=== PATIENT | female | born 2005 | race Caucasian/White ===

== ENCOUNTER 2024-07-18 20:16 | Emergency (ER) | payer OTHER, SELFPAY ==
--- OUTSIDE RECORDS SUMMARY | 2024-06-04 16:00 | XMS_ITS | Encounter Summary ---
Author Organization [facility] Address [address] [place] [address] Care Team Providers Care Health Nurse Name Role Phone Charlie Rowley P.A.-C. Primary Care Provider Reason for Visit * Reason Comments Nurse Visit Bladder instillation * Outpatient (Routine) - Authorized Specialty Diagnoses / Procedures Referred By Sandy chamberlain Referred To Contact Obstetrics and Gynecology Diagnoses Cystitis Interstitial Millie Salinas APRN, C.N.P. [address] [phone] Phone: tel: fax: [facility] Region Referral ID Status Reason Start Date Expiration Date V isits Requested Visits Authorized [id number] Authorized 05/11/2024 11/10/2025 12 12 Encounter Details Date Type Department Care Team (Late st Contact Info) Description 06/04/2024 4:00 PM CDT Nurse Only Department of Obstetrics and Gynecology in [place], [place] [address] [place] [phone] Millie Salinas APRN, C.N.P. [address] [place] [phone] Caren Tena L.P.N. [address] [place] [phone] Nurse Visit (Bladder instillation ) Discharge Disposition: Home or Self Care Social History Tobacco Use Types Packs/Day Years Used Date Smoking Tobacco: Every Day E-cigarettes Passive Smoke Exposure: Current Smokeless Tobacco: Never Alcohol Use Standard Drinks/Week Comments Not Currently 0 (1 standard drink = 0.6 oz pur e alcohol) [facility] Utilities Answer Date Recorded In the past 12 months has th e electric, gas, oil, or water company threatened to shut off services in your home? No 07/28/2023 Overall Financial Resource Strain (CARDIA) Answe r Date Recorded How hard is it for you to pa y for the very basics like food, housing, medical care, and heating? Not hard at all 04/16/2022 PHQ-2 Answer Date Recorded PHQ-2 Score 0 04/24/2024 [facility] of Occupat ional Health - Occupational Stress Questionnaire Answer Date Recorded Do you feel stress - tense, restless, nervous, or anxious, or unable to sleep at night because your mind is troubled all the time - these days? Very much 04/16/2022 Exercise Vital Sign Answer Date Recorde d On average, how many days pe r week do you engage in moderate to strenuous exercise (like a brisk walk)? 0 days 07/28/2023 On average, how many minutes do you engage in exercise at this level? 0 min 07/28/2023 Hunger Vital Sign Answer Date Recorded Within the past 12 months, y ou worried that your food would run out before you got the money to buy more. Never true 07/28/19 24 Within the past 12 months, t he food you bought just didn't last and you didn't have money to get more. Never true 07/28/2023 PRAPARE - Transportation Answer Date Re corded In the past 12 months, has l ack of transportation kept you from medical appointments or from getting medications? No 07/12 In the past 12 months, has l ack of transportation kept you from meetings, work, or from getting things needed for daily living? No 07/28/2023 Depression Answer Date Recor ded PHQ-9 Total Score (max 27) 14 03/18 Safety and Environment Answer Date Noel rded Are there any guns kept in or around your home? Yes 04/16/2022 Gun Storage Not on file 04/16/2022 Child Education Answer Date Recorded Nursing Home Assistant Administrator Education Not on file 2022 Are you/your child doing well enough in school? Yes 04/16/2022 Do you/your child have what you need to learn? Y es 04/16/2022 Read to Child Not on file 04/16/2022 Adolescent Education Answer Date Record ed Are you/your child doing well enough in school? Yes 04/16/2022 Do you/your child have what you need to learn? Y es 04/16/2022 Adolescent Substance Use Answer Date Re corded In the past 30 days, have yo u used substances like alcohol or marijuana? No 04/16/2022 In the past 30 days, have yo u used anything to get high (like other drugs not prescribed to you, over the counter medications, illegal drugs like cocaine, heroin, meth)? No 04/16/2022 Nutrition Answer Date Recorded On average, how many serving s of fruits and vegetables do you eat per day (serving size is equal to 1 cup or approximately the size of a tennis ball)? 0-2 07/28/2023 Dental Answer Date Recorded Dental: Regular Dentist Yes 04/21/19 Employment Answer Date Recorded Employment status Employed and actively working without restrictions 07/28/2023 Housing Stability Answer Date Recorded What is your living situation today? I have a [facility] place to live 07/28/2023 Comments No Sex and Gender Information Value Date Recorded Sex Assigned at Female 04/01/2019 2:47 PM DEPUTY BUILDING GUARD Legal Sex Female 7:51 AM DEPUTY BUILDING GUARD Gender Identity Female 04/01/2019 2:47 PM DEPUTY BUILDING GUARD Sexual Orientation Straight 11/30/2020 1: 11 PM CDT Occupation Industry Job Start Date Job End Date Student Not on file Not on file Not on file documented as of this encounter Progress Notes * Caren Tena, L.P.N. - 06/04/2024 4:00 PM CDT Bladder Instillation This is number 7 of NA. Prior to the procedure the following was reviewed: NA The patient was prepped in sterile fashion using betadine. Catheter size: 8 FR Catheter type: Straight Medication administered (see MAR for specific details): Heparin/Lidocaine/Sodium bicarbonate (Bladder cocktail) Medication instilled via syringe. Catheter removed intact. Patient tolerated procedure well. The patient was provided with the following:Post procedure instructions Next treatment/follow up scheduled for: ONE WEEK 10 cc post cath residual Caren Tena L.P.N. documented in this encounter Plan of Treatment Upcoming Encounters Date Type Department Care Team (Late st Contact Info) Description 07/27/2024 1:30 PM CDT Silent Schedule Department of Obstetrics and Gynecology in [place], [place] [address] [place] [phone] Alberto De La Rosa Jr., M.D. [address] [phone] 07/27/2024 2:40 PM CDT Routine Department of Family Medicine, [facility], in [place], [place] [address] [phone] Tierney Benson M.D. [address] [place] [phone] 08/19/2024 11:00 AM CDT Office Visit Department of Obstetrics and Gynecology in [place], [place] [address] [phone] Millie Salinas, DEDE, CJoseN.P. [address] [place] [phone] documented as of this encounter Visit Diagnoses Diagnosis Cystitis Interstitial documented in this encounter Administered Medications Active Administered Medications - up to 3 most recent administrations Medication Order MAR Action Action Date Dose Rate Site BUPivacaine 0.25 % (2.5 mg/mL) injection 30 mL (Marcaine) 30 mL, injection, Weekly, First dose on Sat05/12/24 at 0900, For 12 doses, Mix 30 ml of 0.25% Marcaine with 2 ml of heparin 5000 units/ml. Instill into bladder.Indications:Cystitis Interstitial Given 07/03/2024 2:12 PM CDT 30 mL Other Given 06/18/2024 9:42 AM CDT 30 mL Ot her Given 06/10/2024 3:10 PM CDT 30 mL Ot her heparin (porcine) injection 10,000 Units 10,000 Units, subcutaneous, Weekly, First dose on Sat05/12/24 at 0900, For 12 doses, To be given via female straight cath for bladder instillation.Indications:Cystitis Interstitial Given 07/03/2024 2:11 PM CDT 10,000 Units Other Given 06/18/2024 9:43 AM CDT 10,000 Units Other Given 06/10/2024 3:09 PM CDT 10,000 Units Other documented in this encounter Additional Health Concerns Assessment Noted Time PHQ-9 Depression Total Score: 14 024 1:44 PM DEPUTY BUILDING GUARD documented as of this encounter Care Teams Health Nurse Relationship Specialty Start Date End Date Charlie Rowley P.A.-C. [address] [place] [address] [phone] PCP - General Family Medicine 11/03/20 documented as of this encounter
--- OUTSIDE RECORDS SUMMARY | 2024-06-10 14:30 | XMS_ITS | Encounter Summary ---
Author Organization [facility] Address [address] [place] [address] Care Team Providers Care Gps Navigation Installer Name Role Phone Charlie Rowley P.A.-C. Primary Care Provider Reason for Visit * Reason Comments Nurse Visit Bladder instillation * Outpatient (Routine) - Authorized Specialty Diagnoses / Procedures Referred By Sandy t Referred To Contact Obstetrics and Gynecology Diagnoses Cystitis Interstitial Millie Salinas APRN, C.N.P. [address] [phone] Phone: tel: fax: [facility] Region Referral ID Status Reason Start Date Expiration Date V isits Requested Visits Authorized [id number] Authorized 05/11/2024 11/10/2025 12 12 Encounter Details Date Type Department Care Team (Late st Contact Info) Description 06/10/2024 2:30 PM CDT Nurse Only Department of Obstetrics and Gynecology in [place], [place] [address] [place] [phone] Millie Salinas APRN, C.N.P. [address] [place] [phone] Caren Tena L.P.N. [address] [place] [phone] Nurse Visit (Bladder instillation ) Social History Tobacco Use Types Packs/Day Years Used Date Smoking Tobacco: Every Day E-cigarettes Passive Smoke Exposure: Current Smokeless Tobacco: Never Alcohol Use Standard Drinks/Week Comments Not Currently 0 (1 standard drink = 0.6 oz pur e alcohol) [facility] Utilities Answer Date Recorded In the [...] Answer Date Recorded PHQ-2 Score 0 04/24/2024 [facility] [place] of Occupat ional Health - Occupational Stress [...] file 04/16/2022 Child Education Answer Date Recorded Python Engineer Education Not on file 2022 Are you/your [...] your living situation today? I have a [facility] place to live 07/28/2023 Comments No Sex and Gender Information Value Date Recorded Sex Assigned at Female 04/01/2019 2:47 PM CHIROPRACTIC PRACTICE MANAGER Legal Sex Female 7:51 AM CHIROPRACTIC PRACTICE MANAGER Gender Identity Female 04/01/2019 2:47 PM CHIROPRACTIC PRACTICE MANAGER Sexual Orientation Straight 11/30/2020 1: 11 PM CDT Occupation Industry Job Start Date Job End Date Student Not on file Not on file Not on file documented as of this encounter Progress Notes * Caren Tena L.PSoraya - 06/10/2024 2:30 PM CDT Bladder Instillation This is number 8 of na. Prior to the procedure the following was reviewed: na The patient was prepped in sterile fashion using betadine. Catheter size: 8 fr Catheter type: Straight Medication administered (see MAR for specific details): Heparin/Lidocaine/Sodium bicarbonate (Bladder cocktail) Medication instilled via syringe. Catheter removed intact. Patient tolerated procedure well. The patient was provided with the following:Post procedure instructions Next treatment/follow up scheduled for: one week Post cath residual 20 cc. Caren Tena L.P.N. documented in this encounter Plan of Treatment Upcoming Encounters Date Type Department Care Team (Late st Contact Info) Description 07/27/2024 1:30 PM CDT Silent Schedule Department of Obstetrics and Gynecology in [place], [place] [address] [place] [phone] Alberto De La Rosa Jr., M.D. [address] [phone] 07/27/2024 2:40 PM CDT Routine Department of Family Medicine, [facility], in [place], [place] [address] [phone] Tierney Benson M.D. [address] [phone] 08/19/2024 11:00 AM CDT Office Visit Department of Obstetrics and Gynecology in [place], [place] [address] [phone] Millie Salinas, DEDE CJoseNJoseP. [address] [place] [phone] documented as of this encounter Visit [...] Depression Total Score: 14 024 1:44 PM CHIROPRACTIC PRACTICE MANAGER documented as of this encounter Care Teams Gps Navigation Installer Relationship Specialty Start Date End Date Charlie Rowley P.A.-C. [address] [place] [phone] PCP - General Family Medicine 11/03/20 documented as of this encounter
--- OUTSIDE RECORDS SUMMARY | 2024-06-18 09:00 | XMS_ITS | Encounter Summary ---
Author Organization [facility] Address [address] [place] [address] Care Team Providers Care Large Sheetfed Press Operator Name Role Phone Charlie Rowley P.A.-C. Primary Care Provider Reason for Visit * Reason Comments Nurse Visit BLADDER INSTILLATION * Outpatient (Routine) - Closed Specialty Diagnoses / Procedures Referred By Sandy chamberlain Referred To Contact Obstetrics and Gynecology Diagnoses Obesity Body Mass Index 30-39.9 Adult Cystitis Interstitial Millie Salinas APRN, C.N.P. [address] [place] [address] Phone: tel: fax: [facility] Region Referral ID Status Reason Start Date Expiration Date Visits Re quested Visits Authorized [id number] Closed 05/11/2024 11/10/2025 1 1 Encounter Details Date Type Department Care Team (Late st Contact Info) Description 06/18/2024 9:00 AM CDT Nurse Only Department of Obstetrics and Gynecology in [place], [place] [address], [place] [phone] Millie Salinas APRN, C.N.P. [address], [place] [phone] Caren Tena L.P.N. [address] [phone] Nurse Visit (BLADDER INSTILLATION ) Discharge Disposition: Home or Self Care Social History Tobacco Use Types Packs/Day Years Used Date Smoking Tobacco: Every Day E-cigarettes Passive Smoke Exposure: Current Smokeless Tobacco: Never Alcohol Use Standard Drinks/Week Comments Not Currently 0 (1 standard drink = 0.6 oz pur e alcohol) [facility] Utilities Answer Date Recorded In the [...] Answer Date Recorded PHQ-2 Score 0 04/24/2024 [facility] of Occupat ional Health - Occupational Stress [...] file 04/16/2022 Child Education Answer Date Recorded Surgery Assistant Education Not on file 2022 Are you/your [...] your living situation today? I have a [facility] place to live 07/28/2023 Comments No Sex and Gender Information Value Date Recorded Sex Assigned at Female 04/01/2019 2:47 PM PREASSEMBLER AND INSPECTOR Legal Sex Female 7:51 AM PREASSEMBLER AND INSPECTOR Gender Identity Female 04/01/2019 2:47 PM PREASSEMBLER AND INSPECTOR Sexual Orientation Straight 11/30/2020 1: 11 PM CDT Occupation Industry Job Start Date Job End Date Student Not on file Not on file Not on file documented as of this encounter Progress Notes * Caren Tena L.P.N. - 06/18/2024 9:00 AM CDT Bladder Instillation This is number 9 of NA. Prior to the procedure the following was reviewed: NA The patient was prepped in sterile fashion using BETADINE . Catheter size: 8 FR Catheter type: Straight Medication administered (see MAR for specific details): Heparin/Lidocaine/Sodium bicarbonate (Bladder cocktail) Medication instilled via syringe. Catheter removed intact. Patient tolerated procedure well. The patient was provided with the following:Post procedure instructions Next treatment/follow up scheduled for: ONE WEEK DROPS FOR POST CATH RESIDUAL Caren Tena L.P.N. documented in this encounter Plan of Treatment Upcoming Encounters Date Type Department Care Team (Late st Contact Info) Description 07/27/2024 1:30 PM CDT Silent Schedule Department of Obstetrics and Gynecology in [place], [place] [address] [place] [phone] Alberto De La Rosa Jr., M.D. [address] [place] [phone] 07/27/2024 2:40 PM CDT Routine Department of Family Medicine, [facility], in [place], [place] [address] [place] [phone] Tierney Benson M.D. [address] [place] [phone] 08/19/2024 11:00 AM CDT Office Visit Department of Obstetrics and Gynecology in [place], [place] [address] [phone] Millie Salinas, DEDE, C.N.P. [address] [place] [phone] documented as of this encounter Visit Diagnoses Diagnosis Obesity Body Mass Index 30-39.9 Adult Cystitis Interstitial documented in this encounter Administered [...] Depression Total Score: 14 024 1:44 PM PREASSEMBLER AND INSPECTOR documented as of this encounter Care Teams Large Sheetfed Press Operator Relationship Specialty Start Date End Date Charlie Rowley, Jaiden. [address] [place] [phone] PCP - General Family Medicine 11/03/20 documented as of this encounter
--- OUTSIDE RECORDS SUMMARY | 2024-06-26 14:15 | XMS_ITS | Encounter Summary ---
Author Organization [facility] Address [address] [place] [address] Care Team Providers Care Glass Deposition Tender Name Role Phone Charlie Rowley P.AJose-CJose Primary Care Provider Reason for Visit * Reason Comments Nurse Visit Weight and height * Appointment Request (Routine) - Authorized Specialty Diagnoses / Procedures Referred By Sandy chamberlain Referred To Contact Family Medicine Referral ID Status Reason Start Date Expiration Date V isits Requested Visits Authorized [id number] Authorized 06/24/2024 09/24/2025 1 1 Encounter Details Date Type Department Care Team (Late st Contact Info) Description 06/26/2024 2:15 PM CDT Nurse Only Department of Family Medicine, [facility], in [place], [place] [address] [place] [phone] Charlie Rowley PRadha-CJose [address] [place] [phone] Alyse Batres LJoseP.NJose [address] [place] [phone] Nurse Visit (Weight and height) Social History Tobacco Use Types Packs/Day Years Used Date Smoking Tobacco: Every Day E-cigarettes Passive Smoke Exposure: Current Smokeless Tobacco: Never Alcohol Use Standard Drinks/Week Comments Not Currently 0 (1 standard drink = 0.6 oz pur e alcohol) [facility] Utilities Answer Date Recorded In the past 12 months has e electric, gas, oil, or water company threatened to shut off services in your home? No 07/28/2023 Overall Financial Resource Strain (CARDIA) Answe r Date Recorded How hard is it for you to pa y for the very basics like food, housing, medical care, and heating? Not hard at all 04/16/2022 PHQ-2 Answer Date Recorded PHQ-2 Score 0 04/24/2024 [facility] of Occupat ional Health - Occupational Stress [...] file 04/16/2022 Child Education Answer Date Recorded Final Inspector Motorcyles Education Not on file 2022 Are you/your [...] your living situation today? I have a [facility] place to live 07/28/2023 Comments No Sex and Gender Information Value Date Recorded Sex Assigned at Female 04/01/2019 2:47 PM OPENER Legal Sex Female 7:51 AM OPENER Gender Identity Female 04/01/2019 2:47 PM OPENER Sexual Orientation Straight 11/30/2020 1: 11 PM CDT Occupation Industry Job Start Date Job End Date Student Not on file Not on file Not on file documented as of this encounter Last Filed Vital Signs Vital Sign Reading Time Taken Comments Blood Pressure - - Pulse - - Temperature - - Respiratory Rate - - Oxygen Saturation - - Inhaled Oxygen Concentration - - Weight 89.8 kg (197 lb 15.6 oz) 06/26/2024 2:19 PM CDT Height 162.4 cm (5' 3.94) 06/26/2024 2:19 PM CD T Body Mass Index 34.05 06/26/2024 2:19 PM CDT documented in this encounter Progress Notes * Alyse Batres, L.P.N. - 06/26/2024 2:15 PM CDT Patient stopped into the clinic today for a Weight and height check. Wt. 89.80 kg Ht. 162.4 cm documented in this encounter Plan of Treatment Upcoming Encounters Date Type Department Care Team (Late st Contact Info) Description 07/27/2024 1:30 PM CDT Silent Schedule Department of Obstetrics and Gynecology in [place], [place] [address] [phone] Alberto De La Rosa Jr., M.D. [address] [phone] 07/27/2024 2:40 PM CDT Routine Department of Family Medicine, [facility], in [place], [place] [address] [phone] Tierney Benson M.D. [address] [phone] 08/19/2024 11:00 AM CDT Office Visit Department of Obstetrics and Gynecology in [place], [place] [address] [phone] Millie Salinas, DEDE, C.N.P. [address] [phone] documented as of this encounter Visit Diagnoses Diagnosis Obesity Body Mass Index 30-39.9 Adult- Primary documented in this encounter Additional Health Concerns Assessment Noted Time PHQ-9 Depression Total Score: 14 024 1:44 PM OPENER documented as of this encounter Care Teams Glass Deposition Tender Relationship Specialty Start Date End Date Charlie Rowley P.A.-C. [address] [facility] [place] [phone] PCP - General Family Medicine 11/03/20 documented as of this encounter
--- OUTSIDE RECORDS SUMMARY | 2024-06-29 11:30 | XMS_ITS | Encounter Summary ---
Author Organization [facility] Address [address] [place] [id number] Care Team Providers Care Rail Technician Name Role Phone Charlie Rowley P.A.-C. Primary Care Provider Encounter Details Date Type Department Care Team (Late st Contact Info) Description 06/29/2024 11:30 AM CDT Internal E-Consult Division of Endocrinology in [place], [place] [address] [place] [phone] Luna Wiley, DEDE, C.N.P., M.S.N. [address] [place] [phone] Social History Tobacco Use Types Packs/Day Years Used Date Smoking Tobacco: Every Day E-cigarettes Passive Smoke Exposure: Current Smokeless Tobacco: Never Alcohol Use Standard Drinks/Week Comments Not Currently 0 (1 standard drink = 0.6 oz pur e alcohol) [facility] Utilities Answer Date Recorded In the past 12 months has [employer], gas, oil, or water [employer] threatened to shut off services in your home? No 06/30/2024 Overall Financial Resource Strain (CARDIA) Answe r Date Recorded How hard is it for you to pa y for the very basics like food, housing, medical care, and heating? Not hard at all 04/16/2022 PHQ-2 Answer Date Recorded PHQ-2 Score 2 06/30/2024 [facility] [place] [facility] Occupat ional Health - Occupational Stress [...] the money to buy more. Never true 07/01/19 25 Within the past 12 months, t he food you bought just didn't last and you didn't have money to get more. Never true 06/30/2024 PRAPARE - Transportation Answer Date Re corded In the past 12 months, has l ack of transportation kept you from medical appointments or from getting medications? No 06/12 In the past 12 months, has l ack of transportation kept you from meetings, work, or from getting things needed for daily living? No 06/30/2024 Depression Answer Date Recor ded PHQ-9 Total Score (max 27) 8 06/30 Safety and Environment Answer Date Noel rded Are there any guns kept in or around your home? Yes 04/16/2022 Gun Storage Not on file 04/16/2022 Child Education Answer Date Recorded Litigation Services Manager Education Not on file 2022 Are you/your [...] your living situation today? I have a larry place to live 07/28/2023 Comments No Sex and Gender Information Value Date Recorded Sex Assigned at Female 04/01/2019 2:47 PM BONDING AGENT Legal Sex Female 7:51 AM BONDING AGENT Gender Identity Female 04/01/2019 2:47 PM BONDING AGENT Sexual Orientation Straight 11/30/2020 1: 11 PM CDT Occupation Industry Job Start Date Job End Date Student Not on file Not on file Not on file documented as of this encounter Consult Notes * Luna Wiley APRN, C.N.P., M.S.N. - 06/29/2024 11:30 AM CDT ENDOCRINOLOGY eCONSULT SUBJECTIVE REFERRAL Millie Salinas APRN, C.N.P. REASON FOR REFERRAL Clinical Question, Patient desires 2nd option regarding PCOS management HPI This is an E-consult. The patient was not personally interviewed or examined. The history and examination findings are based on the clinical documentation provided and/or discussed with the provider who had personally interviewed and examined the patient. Carli Barrett is a 19 y.o. female who is referred for the above listed clinical question. Has experienced abdominal pain following IUD placement in 2020, ongoing pelvic pain, dyspareunia, and cystictype acne of the back, axilla, and groin region. Has trialed IUD, oral contraceptives, and NuvaRingin the past. Has trialed metformin in the past as well as GLP-1 which was not tolerated secondary to GI side effects. Secondary to symptoms, investigation was initiated. TVUS in February of 2023 notedno sonographic evidence for pelvic pain. Polycystic morphology not commented upon. Note that right ovarian volume 13 mL, left within normal limits at 6 mL. Lab work is as follows: Latest Reference Range & Units 03/22/22 11:45 03/18/23 14:43 05/29/23 12:50 06/17/23 16:47 07/12/23 11:33 08/02/23 15:30 Dehydroepiandrosterone Sulfate, S 83 - 377 mcg/dL 429 (H) Prolactin Total 4.8 - 23.3 ng/mL 13.7 8.1 Antimullerian Hormone, S 0.62 - 7.8 ng/mL 3.0 Estradiol Rapid, Immunoassay, S pg/mL <5 Estradiol Free, Serum (includes Estradiol and SHBG) - Sent Out Lab Rpt ! Follicle-Stim Hormone (FSH), S IU/L 4.8 Testosterone, Total by Mass Spectrometry, Serum ng/dL 32 Testosterone, Free, S <0.13 - 1.09 ng/dL 0.50 TSH, Sensitive 0.5 - 4.3 mIU/L 0.9 Hemoglobin A1c, B 4.2 - 5.6 % 5.0 (H): Data is abnormally high !: Data is abnormal Rpt: View report in Results Review for more information ASSESSMENT / PLAN #1 PCOS [place] criteria necessitates that other causes of symptoms be ruled out as well as two of the following be present: 1) Oligomenorrhea or anovulation, 2) Clinical and/or biochemical signs of hyperandrogenism, and 3) Polycystic ovaries by ultrasound. AMH elevation can also be of assistance in diagnosing. Ms. Barrett has had hyperprolactinemia ruled out as a potential cause of symptoms. Would recommend 17-Hydroxyprogesterone be obtained and if Viola's is suspected one midnight salivary cortisol can be obtained. Given that there are clinical (acne) and biochemical (elevated DHEAS) present, then PCOS would be ruled in. If ruled in, there would not be any new recommendations that we would have. Continue to work toward healthy BMI as we know that this is the most well recognized method to control physical symptoms, decrease the risk of metabolic syndrome, and regulate menstrual cycles. It appears that phentermine is working well for Miss Barrett. If acne, androgenic hair loss, or hirsutism are present and concerning, spironolactone is the recommended medication. Alternatively, laser or electrolysis may be necessary to relieve hirsutism. Dermatology can assist with acne medications. If estrogen remains unopposed, need to ensure four cycles annually. Oral contraceptives with low androgenic side effects have been shown to regulate menstrual cycles, decrease acne, and assist with hirsutism. Progestin only pills are an acceptable oral alternative if combination medications are not tolerated or not desired. If oral medications are not tolerated or not advised, progestin secreting IUD placement or implant (Nexplanon) can be discussed. If fertility is desired, a trial of natural co nception for six months should occur. If no successful happens, recommend that Reproductive Endocrinology consultation be considered. documented in this encounter Plan of Treatment Upcoming Encounters Date Type Department Care Team (Late st Contact Info) Description 07/27/2024 1:30 PM CDT Silent Schedule Department of Obstetrics and Gynecology in [place], [place] [address] [phone] Alberto De La Rosa Jr., M.D. [address] [phone] 07/27/2024 2:40 PM CDT Routine Department of Family Medicine, [facility], in [place], [place] [address] [phone] Tierney Benson M.D. [address] [phone] 08/19/2024 11:00 AM CDT Office Visit Department of Obstetrics and Gynecology in [place], [place] [address] [phone] Millie Salinas APRN, C.N.P. [address] [phone] documented as of this encounter Visit Diagnoses Not on filedocumented in this encounter Additional Health Concerns Assessment Noted Time PHQ-9 Depression Total Score: 14 024 1:44 PM BONDING AGENT documented as of this encounter Care Teams Rail Technician Relationship Specialty Start Date End Date Charlie Rowley P.A.-C. [address] [place] [address] [place] [phone] PCP - General Family Medicine 11/03/20 documented as of this encounter
--- OUTSIDE RECORDS SUMMARY | 2024-07-01 15:30 | XMS_ITS | Encounter Summary ---
Author Organization [facility] Address [address] [place] [address] Care Team Providers Care Ham Curer Name Role Phone Charlie Rowley P.A.-C. Primary Care Provider Reason for Referral * Outpatient (Routine) - Authorized Specialty Diagnoses / Procedures Referred By Sandy chamberlain Referred To Contact Allergy and Immunology Diagnoses Examination Test With Positive Result (HCC) Tierney Benson M.D. [address], [place] [address] Phone: tel: fax: [facility] Region Referral ID Status Reason Start Date Expiration Date V isits Requested Visits Authorized [id number] Authorized 07/01/2024 12/31/2025 1 1 * Outpatient (Routine) - Authorized Specialty Diagnoses / Procedures Referred By Sandy chamberlain Referred To Contact Family Medicine Diagnoses Examination Test With Positive Result (HCC) Alberto De La Rosa Jr., M.D. [address], [place] [address] Phone: tel: fax: [facility] Region Referral ID Status Reason Start Date Expiration Date V isits Requested Visits Authorized [id number] Authorized 07/01/2024 12/31/2025 1 1 Reason for Visit * Reason Comments Nurse Visit New OB intake and ed ucation * Appointment Request (Routine) - Closed Specialty Diagnoses / Procedures Referred By Contjessica t Referred To Contact Obstetrics and Gynecology Referral ID Status Reason Start Date Expiration Date Visits Re quested Visits Authorized [id number] Closed 06/29/2024 09/29/2025 1 1 Encounter Details Date Type Department Care Team (Late st Contact Info) Description 07/01/2024 3:30 PM CDT Initial Department of Obstetrics and Gynecology in [place], [place] [address] [place] [address] Provider, Nicolas Placeholder Cindi Sellers R.N. [address] [place] [address] GA: 5w1d Social History Tobacco Use Types Packs/Day Years Used Date Smoking Tobacco: Every Day E-cigarettes Passive Smoke Exposure: Current Smokeless Tobacco: Never Alcohol Use Standard Drinks/Week Comments Not Currently 0 (1 standard drink = 0.6 oz pur e alcohol) [facility] Utilities Answer Date Recorded In the past 12 months has [employer], gas, oil, or water [employer] threatened to shut off services in your home? No 06/30/2024 Overall Financial Resource Strain (CARDIA) Answe r Date Recorded How hard is it for you to pa y for the very basics like food, housing, medical care, and heating? Not hard at all 04/16/2022 PHQ-2 Answer Date Recorded PHQ-2 Score 2 06/30/2024 [facility] - Occupational Stress [...] file 04/16/2022 Child Education Answer Date Recorded Machine Stuffer Automatic Education Not on file 2022 Are you/your [...] your living situation today? I have a [facility] [place] place to live 07/28/2023 Estimated Date of Delivery Comme nts Yes 03/02/2025 Based on last me nstrual period of 05/26/2024 (Exact Date) Sex and Gender Information Value Date Recorded Sex Assigned at Female 04/01/2019 2:47 PM CORE SETTER Legal Sex Female 7:51 AM CORE SETTER Gender Identity Female 04/01/2019 2:47 PM CORE SETTER Sexual Orientation Straight 11/30/2020 1: 11 PM CDT Occupation Industry Job Start Date Job End Date Student Not on file Not on file Not on file documented as of this encounter Patient Instructions * Patient Instructions* Cindi Sellers R.N. - 07/01/2024 3:30 PM CDT At the [facility] in [place], we are committed to helping you make your as uncomplicated as possible. We will plan on seeing you every 4 weeks until 28 week gestation. Then every 2 weeks until 36 week gestation. Then every 1 week until 40+ week gestation. Studies have shown that maternal smoking, maternal drug, or alcohol use, excessive weight gain during , maternal obesity at the onset of , and lack of exercise can increase the likelihood of maternal and complications.These may include pre-term labor, placental abruption, growth restriction, trauma, as well as an increased risk that you will need a Section. To help reduce these risks, we recommend the following lifestyle changes: 1. You should abstain from ALL forms of alcoholic beverages for the entire . 2. You should avoid ALL recreational drugs during your . 3. You should not take any new medication or supplement without discussing it with your physician. 4. If you are a smoker, we strongly recommend that you quit immediately. For your baby???s health, it is very important that you do not restart smoking after delivery. Please ask your physician about medication or patch therapy if you are unable to refrain from smoking. 5. We recommend a regular exercise program, 30 minutes at least three times per week during your . This will help you control your weight gain and has been shown to enhance your recovery. Exercise can consist of walking, aerobics, or whatever you are most comfortable. Remember you should not be getting too short of breath, so start slowly. 6. If you have not already started vitamins,please pick some up at any pharmacy. Ensure they have at least 400 mcg of folic acid in them. Delivering providers frequently cover each other on nights, weekends, and holidays. We encourage atleast one meeting with each provider throughout the course of the . If you notice any of the emergent conditions listed below, call Labor and Delivery at [phone]. 1. Less than 10 motions in two hours time sometime during the day each day 2. More than 10 contractions in two hours time continuously (before 36 weeks) 3. Gushes of water or amniotic fluid coming from your vagina 4. Vaginal bleeding more than just a very light spotting flow Important Numbers Triage Nurse line: Saturday thru Saturday, 8 a.m. to 5 p.m.: [phone] After hours or on weekends, call [facility]: [phone] Appointments: [phone] [facility] : [phone] For emergencies, call [phone] Additional Resources/Contact Information For , wellness and healthy lifestyle information, visit [email or web address] Illness / Symptom Call the clinic if Call the clinic immediately if Home Treatment Bleeding/Cramping Some bleeding/spotting may occur after an internal exam Bleeding is less than a period with mild cramping; common in 1st trimester Bleeding is heavy (using a pad every 2 hours) 2nd & 3rd trimester cramping or painless heavy bleeding Cramping is equal to or worse than menstrual cramps Rest Avoid heavy lifting (more than 20 pounds) Vomiting Common in 1st trimester Unable to keep down liquids and solids for more than a 24 hour period Weight loss of more than 3-5 pounds Signs of dehydration occur (e.g. dry mouth, fatigue/lethargy, poor skin turgor) Abdominal pain accompanied with vomiting Vitamin B6 25 mg three times a day Separate liquids from solids (e.g. dry cereal followed by a glass of milk 1 hour later) Plain popcorn Rest Avoid hot sun Decreased (baby) movements after 24 weeks Baby moves less than 4 times in a 30 minute period while you are resting, during a normally active period of baby No movement if accompanied by severe abdominal pain Rest Drink juice or soft drink Eat a small snack Labor Contractions stronger than Crane-Escobar (mild, irregular contractions), but may not be regular If less than 36 weeks, call if contractions are every 15 minutes Contractions are every 5 minutes apart for 1 hour Water breaks; small leak or as a gush Bleeding is more than a period Pain or contractions won't go away Rest (you'll need energy for real labor) Increase fluids to 8-12 glasses daily Dehydration can cause contractions, especially in the summer Urinary Urgency and/or Pain With Urination Frequency is common in early and late Pain with urination Feeling of urgency to void with little urine produced Temperature of 101??F or higher Pain in upper back Contractions occur Blood in urine Urinate at regular intervals Increase fluid intake to 8-12 glasses daily Swelling Recent, noticeable increase in feet and ankles Swelling of face and hands Swelling accompanied with headache or upper abdominal pain Swelling with decreased movement Elevated blood pressure if using home monitoring Lie on left side and elevate legs Avoid salty foods (e.g. ham, pizza, chili) Cold and Flu Temperature of 101??F or higher Green or yellow mucus develops Persistent cough for more than 5 days Breathing is difficult or wheezing occurs Tylenol, Actifed, Sudafed, and any Robitussin Increase fluids Rest Use vaporizer Avoid ibuprofen Rupture of membranes Water breaks; small leak or as a gush documented in this encounter Progress Notes * Cindi Sellers R.N. - 07/01/2024 3:30 PM CDT SUBJECTIVE CHIEF COMPLAINT / REASON FOR VISIT Carli Barrett is a 19 y.o. . Patient's last menstrual period was 05/26/2024 (exact date). Her Estimated Date of Delivery: 03/02/25 determined by LMP. Gestational age is 5w1d. Relationship with FOB: significant other, living together. Patient plans to breastfeed. HISTORY OF PRESENT CONDITION OB History Para Term AB Living 1 0 0 0 0 0 SAB IAB Ectopic Molar Multiple Live Births 0 0 0 0 0 0 # Outcome Date GA Lbr Corey/2nd Weight Sex Type Anes PTL Lv 1 Current Obstetric Comments OB stratification: green Genetic Screen: reviewed Medical History[1] Surgical History[2] Family History[3] Social History[4] Allergies Allergen Reactions Penicillins Hives (Reselect Reaction) Medications the Patient Reported Taking clindamycin (Cleocin T) 1 % external solution (Taking) Lactobacillus no.46/B.animalis (PROBIOTIC-10 ORAL) (Taking) szilnxe-Ke-xaxg-FA 27 mg iron- 1 mg tablet (Taking) ASSESSMENT / PLAN The following were reviewed with patient: Initial new OB labs and vitamins Immunizations Name Date 9vHPV 05/25/2016, 12/12/2016 Influenza 11/02/2008, Deferred (Other), Deferred (Other) Influenza TIV (IM) 12/22/2009, 12/01/2010, 01/11/2012 SARS-COV-2 (COVID-19) - MODERNA(Discontinued) Deferred (Patient decision) SARS-COV-2 (COVID-19) - PFIZER (Discontinued)(12 years or older) 11/25/2020, 12/19/2020 Tdap 05/25/2016 influenza trivalent vaccine (6 months and older)(PF) 03/27/2006, 12/01/2010, 11/15/2012 influenza vaccine quad (FLUZONE/FLUARIX) (6 months and older)(PF) 11/09/2013, 12/24/2014, 02/16/2020 3:52 PM, Deferred (Patient decision) Patient risk stratifies into green PCP:No PCP listed Prefers Family Medicine providers. Requested Dr Tierney Benson Additional visits ordered: NOB OBG RESEARCH TECHNICIAN/CNM/MD appointment Viability/Dating Ultrasound New OB labs ordered per protocol. Patient was introduced to our care models, including in person and virtual care visits. Patient was instructed to bring any questions to their New OB Provider visit. The following were reviewed with patient: Initial new OB labs and vitamins, anticipated course of care, routine labs, optional labs, seat belt use, dental care, exercise, caffeine use, sexual activity, toxoplasmosis precautions(if indicated), avoidance of hot tubs/saunas, WIC, [place] policy, safe over the counter medications (take Tylenol for pain and discomfort, but should not take Ibuprofen, Motrin, Advilor Aspirin containing products while unless otherwise directed by your doctor), common preg zack symptoms, mercury and listeria precautions, and topics of when to notify care team (fever, excessive nausea/vomiting, pain, bleeding, urinary symptoms, headaches) Patient states understanding to all topics presented. All questions answered during appointment. Written information regarding topics presented provided for patient via portal or at next visit. Please see education tab for further details about topics addressed. Cindi Sellers R.N. [1] Past Medical History: Diagnosis Date Abuse Alcohol Acne Alcohol Withdrawal Syndrome (HCC) Anxiety Generalized Disorder Attention Deficit Hyperactive Disorder Depressive Disorder Disturbance Sleep Drug Withdrawal Syndrome (HCC) Endometriosis Headache Unspecified Irritable Bowel Syndrome, Unspecified Loss Visual Methicillin Resistant Staphylococcal Aureus Obesity Body Mass Index 30-39.9 Adult Obsessive Compulsive Disorder Polycystic Ovary Syndrome Self Mutilation Suicide Attempt Personal History Urinary Tract Infection Site Not Specified [2] Past Surgical History: Procedure Laterality Date HIP SURGERY OTHER SURGICAL HISTORY Hip surgery PA TYMPANOSTOMY W GEN ANES Child years TONSILLECTOMY When i was very young [3] Family History Problem Relation Name Age of Onset Thyroid disease Mother breezy Anxiety disorder Mother breezy Asthma Mother breezy Anxiety disorder Father tia No Known Problems Brother No Known Problems Brother Knee replacement Maternal Grandmother No Known Problems Maternal Grandfather No Known Problems Paternal Grandmother Diabetes Paternal Grandfather Asthma Paternal Grandfather [4] Social History Socioeconomic History Marital status: Single Occupational History Occupation: Student Comment: [employer] Tobacco Use Smoking status: Every Day Types: E-cigarettes Passive exposure: Current Smokeless tobacco: Never Vaping Use Vaping status: current every day use Substances: Nicotine Passive vaping exposure: Yes Substance and Sexual Activity Alcohol use: Not Currently Drug use: Never Comment: Sober since Spring 2019 Sexual activity: Yes Partners: Male control/protection: None Comment: Boyfriend since 2019 Social History Narrative FOB- Shane - first child for both Social Drivers of Health Food Insecurity: No Food Insecurity (06/30/2024) Hunger Vital Sign Worried About Running Out of Food in the Last Year: Never true Ran Out of Food in the Last Year: Never true Transportation Needs: No Transportation Needs (06/30/2024) PRAPARE - Transportation Lack of Transportation (Medical): No Lack of Transportation (Non-Medical): No Physical Activity: Inactive (07/28/2023) Exercise Vital Sign Days of Exercise per Week: 0 days Minutes of Exercise per Session: 0 min Housing Stability: Low Risk (07/28/2023) Housing Stability Housing: Living Situation: I have a steady place to live documented in this encounter Plan of Treatment Upcoming Encounters Date Type Department Care Team (Late st Contact Info) Description 07/27/2024 1:30 PM CDT Silent Schedule Department of Obstetrics and Gynecology in [place], [place] [address] [address] Alberto De La Rosa Jr., M.D. [address] [address] 07/27/2024 2:40 PM CDT Routine Department of Family Medicine, [facility], in [place], [place] [address] [address] Tierney Benson M.D. [address] [address] 08/19/2024 11:00 AM CDT Office Visit Department of Obstetrics and Gynecology in [place], [place] [address] [address] Millie Salinas, DEDE, C.N.P. [address] [address] Scheduled Orders Name Type Priority Associated Diagnoses Order Schedule OB First Trimester Imaging RAD - Routine (most inpatients and all outpatients) Examination Test With Positive Result (HCC) Expected: 07/01/2024, Expires: 10/01/2025 Chlamydia / Gonorrhoeae Amplified RNA Microbiology Routine Examination Test With Positive Result (HCC) Expected: 07/01/2024, Expires: 10/01/2025 Scheduled Referrals Name Type Priority Associated Diagnoses Orde r Schedule Family Medicine - Obstetrics consult (clinic) Outpatient Referral Routine Examination Test With Positive Result (HCC) Expected: 07/01/2024 (Approximate), Expires: 10/01/2025 Allergy and Immunology - Penicillin allergy consult (clinic) Outpatient Referral Routine Examination Test With Positive Result (HCC) Expected: 07/01/2024 (Approximate), Expires: 10/01/2025 documented as of this encounter Results * Thyroid Function [place] (07/02/2024 12:57 PM CDT) TSH, Sensitive 0.9 0.3 - 4.2 mIU/L 07/02/2024 3:11 PM CDT OW Blood (Blood, Venous) 07/02/2024 12:57 PM CDT 07/02/2024 2:36 PM CDT Tierney Benson M.D. LAB BLOOD ADD-ON Final Result Performing Organization Address City/[facility]/ZIP Co de Phone Number [facility] [address] [place] [address], [place] OWAT [facility] in [place] [address] [place] [address] * Syphilis Total Antibody with Reflex, S ([facility]) (07/02/2024 12:57 PM CDT) Syphilis Total Ab w/ Reflex Nonreactive Nonreactive 07/03/2024 3:[address] [facility] Comment: No serologic evidence of infection with T. pallidum (syphilis). Repeat testing may be considered in patients with suspected acute or primary syphilis in 2-4 weeks. For additional information on interpretation of the syphilis reverse algorithm and results, see: [email or web address] Blood (Blood, Venous) 07/02/2024 12:57 PM CDT 07/03/2024 10:58 AM CDT Tierney Benson M.D. LAB BLOOD ADD-ON Final Result Performing Organization Address City/[facility]/ZIP Co de Phone Number [facility] [address] [place] [address], [place] [facility] in [place] [address] [place] [address] * Rubella Antibodies, IgG (07/02/2024 12:57 PM CDT) Rubella Ab, IgG, S Positive 07/03/2024 3:26 PM CDT [facility] Comment: Results suggest response to immunization or prior exposure to the virus. ----REFERENCE VALUE---- Vaccinated: Positive (>=1.0 AI) Unvaccinated: Negative (<=0.7 AI) Rubella IgG Antibody Index 1.5 07/03/2024 3:26 PM CDT [facility] Blood (Blood, Venous) 07/02/2024 12:57 PM CDT 07/03/2024 10:58 AM CDT Tierney Benson M.D. LAB MICROBIOLOGY - BLOO D ORDERABLES Final Result [facility] [address] [place] [address], [facility] [address] [address] * HIV-1/-2 Ag and Ab Scrn, Plasma (07/02/2024 12:57 PM CDT) HIV Ag/Ab Scrn, P Negative Negative 07/03/2024 3:26 PM CDT [facility] Comment: Negative result does not rule out HIV infection. If exposure to HIV infection occurred <14 days ago, contact the laboratory to request addition of HIV-1/HIV-2 RNA detection , Plasma (HPP12). HIV-1 p24 Ag Scrn, P Negative Negative 07/03/2024 3:26 PM CDT [facility] Comment: Negative result does not rule out HIV infection. If exposure to HIV infection occurred <14 days ago, contact the laboratory to request addition of HIV-1/HIV-2 RNA detection , Plasma (HPP12). HIV-1 Ab Scrn, P Negative Negative 07/03/2024 3:26 PM CDT [facility] Comment: Negative result does not rule out HIV infection. If exposure to HIV infection occurred <14 days ago, contact the laboratory to request addition of HIV-1/HIV-2 RNA detection , Plasma (HPP12). HIV-2 Ab Scrn, P Negative Negative 07/03/2024 3:[address] [facility] Comment: Negative result does not rule out HIV infection. If exposure to HIV infection occurred <14 days ago, contact the laboratory to request addition of HIV-1/HIV-2 RNA detection , Plasma (HPP12). Blood (Blood, Venous) 07/02/2024 12:57 PM CDT 07/03/2024 10:56 AM CDT Tierney Benson M.D. LAB MICROBIOLOGY - BLOO D ORDERABLES Final Result Performing Organization Address City/[facility]/ZIP Co de Phone Number [facility] [address] [place] [address], [facility] in [address] [address] * Hepatitis C Virus Antibody Screen (07/02/2024 12:57 PM CDT) HCV Ab Scrn , S Negative Negative 07/03/2024 11:34 AM CDT [facility] Comment: Consumption of high-dose biotin supplement within 12 hours of blood collection for this test can cause false-negative results. Blood (Blood, Venous) 07/02/2024 12:57 PM CDT 07/03/2024 8:10 AM CDT us Tierney Benson M.D. LAB MICROBIOLOGY - BLOO D ORDERABLES Final Result Performing Organization Address City/[facility]/ZIP Co de Phone Number [facility] [address] [place] [address] [facility] [address] [place] [address] * HBc Total Ab , Serum (07/02/2024 12:57 PM CDT) HBc Total Ab , S Negative Negative 07/03/2024 11:35 AM CDT [facility] Blood (Blood, Venous) 07/02/2024 12:57 PM CDT 07/03/2024 8:10 AM CDT Tierney Benson M.D. LAB MICROBIOLOGY - BLOO D ORDERABLES Final Result [facility] [address] [place] [address] [facility] [address] [place] [address] * HBs Antibody , Serum (07/02/2024 12:57 PM CDT) HBs Antibody , S Negative 07/02/2024 9:45 PM CDT [facility] Comment: Patient is presumed NOT to be immune to infection with HBV. Consumption of high-dose biotin supplement within 12 hours of blood collection for this test can cause false-negative results. ----REFERENCE VALUE---- Unvaccinated: Negative Vaccinated: Positive HBs Antibody, Quantitative, S <3.50 mIU/mL 07/02/2024 9:45 PM CDT [facility] Comment: ----REFERENCE VALUE---- <8.50: Negative 8.50-11.49: Indeterminate >=11.50: Positive Blood (Blood, Venous) 07/02/2024 12:57 PM CDT 07/02/2024 9:13 PM CDT Tierney Benson M.D. LAB MICROBIOLOGY - BLOO D ORDERABLES Final Result Performing Organization Address City/[facility]/ZIP Co de Phone Number [facility] [address] [place] [address], [facility] [address] [place] [address] * HBs Antigen , Serum (07/02/2024 12:57 PM CDT) HBs Antigen , S Non reactive Non reactive 07/02/2024 9:45 PM CDT [facility] Blood (Blood, Venous) 07/02/2024 12:57 PM CDT 07/02/2024 9:13 PM CDT Tierney Benosn M.D. LAB MICROBIOLOGY - BLOO D ORDERABLES Final Result [facility] [address] [place] [address], [place] [facility] [facility] [address] [place] [address] * (ABNORMAL) CBC with Differential, Blood (07/02/2024 12:57 PM CDT) Hemoglobin 13.0 11.6 - 15.0 g/dL 07/02/2024 6:01 PM CDT [facility] Hematocrit 39.0 35.5 - 44.9 % 07/02/2024 6:01 PM CDT [facility] Erythrocytes 4.27 3.92 - 5.13 x10(12)/L 07/02/2024 6:01 PM CDT [facility] MCV 91.3 78.2 - 97.9 fL 07/02/2024 6:01 PM CDT [facility] RBC Distrib Width 13.2 12.2 - 16.1 % 07/02/2024 6:01 PM CDT [facility] Platelet Count 361 157 - 371 x10(9)/L 07/02/2024 6:01 PM CDT [facility] Leukocytes 9.8(H) 3.4 - 9.6 x10(9)/L 07/02/2024 6:01 PM CDT [facility] Neutrophils 6.08 1.56 - 6.45 x10(9)/L 07/02/2024 6:01 PM CDT [facility] Lymphocytes 3.05 0.95 - 3.07 x10(9)/L 07/02/2024 6:01 PM CDT [facility] Monocytes 0.56 0.26 - 0.81 x10(9)/L 07/02/2024 6:01 PM CDT [facility] Eosinophils 0.10 0.03 - 0.48 x10(9)/L 07/02/2024 6:01 PM CDT [facility] Basophils 0.05 0.01 - 0.08 x10(9)/L 07/02/2024 6:01 PM CDT [facility] Blood (Blood, Venous) 07/02/2024 12:57 PM CDT 07/02/2024 5:46 PM CDT Tierney Benson M.D. LAB BLOOD ADD-ON Final Result Performing Organization Address City/[facility]/ZIP Co de Phone Number [facility] [address] [place] [address], [place] [facility] in [place] [address] [place] [address] * Type and Screen (with Reflex Antibody ID) (07/02/2024 12:57 PM CDT) Pathologist [facility] ABO Group A 07/02/2024 10:10 PM CDT [facility] Rh Type POS 07/02/2024 10:10 PM CDT [facility] Antibody Screen NEG 10:04 PM CDT [facility] Type & Screen Expiration 07/05/2024 23:59 07/02/2024 10:10 PM CDT [facility] ELXM Eligible N 07/02/2024 10:10 PM CDT [facility] Blood (Blood, Venous) 07/02/2024 12:57 PM CDT 07/02/2024 9:14 PM CDT Tierney Benson M.D. LAB BLOOD BANK TEST ORD ERABLES Final Result Performing Organization Address [facility] Co de Phone Number [facility] [address] [place] [address], [facility] [address] [place] [address] * Hemoglobin Electrophoresis Evaluation (07/02/2024 12:56 PM CDT) Pathologist [facility] Hb A 97.5 95.8 - 98.0 % 07/03/2024 1:54 PM CDT [facility] Hb F 0.0 0.0 - 0.9 % 07/03/2024 1:54 PM CDT [facility] Hb A2 2.5 2.0 - 3.3 % 07/03/2024 1:54 PM CDT [facility] Comment: ----ADDITIONAL INFORMATION---- This test has been modified from the wing mailer machine operator's instructions. Its performance characteristics were determined by [facility] in a manner consistent with CLIA requirements. This test has not been cleared or approved by the [place] Food and Drug Administration. HPLC Hb Variant, B See Interpretation 07/03/2024 1:54 PM CDT DTL Comment: ----ADDITIONAL INFORMATION---- This test has been modified from the wing mailer machine operator's instructions. Its performance characteristics were determined by [facility] in a manner consistent with CLIA requirements. This test has not been cleared or approved by the U.S. Food and Drug Administration. Hb Electrophoresis Interpretation No electrophoretic evidence of abnormal hemoglobin or beta thalassemia. See comment. Comment: These results do not exclude alpha thalassemia. The vast majority of hemoglobin variants and beta complex thalassemias are excluded, including the common variants Hbs S, C, D, and E, although some rare clinically significant hemoglobin disorders are electrophoretically silent. In particular, some variants such as Hb Constant Spring, or other variants, may not be detected. If otherwise unexplained lifelong/familial symptoms such as hemolysis (i.e. Cruz body hemolytic anemia), microcytosis, erythrocytosis, cyanosis, or hypoxia are present and additional testing is desired, please call the [facility] Hematology Laboratory ( ). If alpha thalassemia is a consideration, alpha globin gene deletion/duplication analysis is available (AGDD/Alpha Globin Cluster Locus Del/Dup). If genotyping to assess for Hb Constant Spring is desired, please order WASEQ/Alpha Globin Gene Sequencing, B. Additional sample required. Methodologies utilized in this interpretation include: capillary electrophoresis, HPLC. 07/03/2024 1:54 PM CDT DTL Blood (Blood, Venous) 07/02/2024 12:56 PM CDT 07/03/2024 7:13 AM CDT Tierney Benson M.D. LAB BLOOD ADD-ON Final Result [facility] [address] [place] [address], [facility] DT [address] [place] [address] * Hemoglobin A1c (07/02/2024 12:56 PM CDT) Hemoglobin A1c, B 5.0 4.2 - 5.6 % 07/02/2024 3:07 PM CDT OWAT Blood (Blood, Venous) 07/02/2024 12:56 PM CDT 07/02/2024 2:36 PM CDT Tierney Benson M.D. LAB BLOOD ADD-ON Final Result [facility] [address] [place] [address], [facility] OWAT [facility] in [place] [address] [place] [address] * (ABNORMAL) Urinalysis with Microscopic if Indicated: Urine, Midstream (07/02/2024 12:45 PM CDT) Source Urine, Urine, Midstream 07/02/2024 1:08 PM CDT FB60 Clarity Clear Clear 07/02/2024 1:11 PM CDT FB60 Color Yellow 07/02/2024 1:11 PM CDT FB60 Comment: ----REFERENCE VALUE---- Colorless Yellow Jerri Blood Negative Negative 07/02/2024 1:11 PM CDT FB60 Nitrite Negative Negative 07/02/2024 1:11 PM CDT FB60 Leukocyte Esterase Trace(A) Negative 07/02/2024 1:11 PM CDT FB60 Protein Trace mg/dL 07/02/2024 1:11 PM CDT FB60 Comment: ----REFERENCE VALUE---- Negative Trace Glucose Negative Negative mg/dL 07/02/2024 1:11 PM CDT FB60 Ketones, QI(U) Negative Negative mg/dL 07/02/2024 1:11 PM CDT FB60 Bilirubin Negative Negative 07/02/2024 1:11 PM CDT FB60 pH 6.0 5.0 - 8.0 07/02/2024 1:11 PM CDT FB60 Specific [place] >=1.030 1.001 - 1.035 07/02/2024 1:11 PM CDT FB60 Urobilinogen 0.2 0.2 - 1.0 mg/dL 07/02/2024 1:11 PM CDT FB60 Urine (Urine, Midstream) 07/02/2024 12:45 PM CDT 07/02/2024 1:07 PM CDT Tierney Benson M.D. LAB URINE ORDERABLES Fi nal Result Performing Organization Address City/[facility]/ZIP Co de Phone Number [facility] [address] [place] [address], [place] FB60 [facility] in [place] [address] [place] [address] * Bacterial Culture, Aerobic + Susceptibility, Urine (07/02/2024 12:45 PM CDT) Urine Culture Urogenital microbiota, susceptibilities not performed per laboratory criteria. 07/03/2024 12:15 PM CDT [facility] Urine (Urine, Midstream) 07/02/2024 12:45 PM CDT 07/02/2024 7:04 PM CDT Comment:Specimen Source Site : Urine Tierney Benson M.D. LAB MICROBIOLOGY - GENE RAL ORDERABLES Final Result Performing Organization Address City/[facility]/ZIP Co de Phone Number [facility] [address] [place] [address], [facility] MKTO [facility] in [place] [address] [place] [address] documented in this encounter Visit Diagnoses Diagnosis Examination Test With Positive Result (HCC)- Primary Administrative Encounter No Exam documented in this encounter Additional Health Concerns Assessment Noted Time PHQ-9 Depression Total Score: 8 07/01/19 25 10:33 AM CDT documented as of this encounter Care Teams Ham Curer Relationship Specialty Start Date End Date Charlie Rowley P.A.-C. [address] [place] [address] PCP - General Family Medicine 11/03/20 documented as of this encounter
--- OUTSIDE RECORDS SUMMARY | 2024-07-02 12:34 | XMS_ITS | Encounter Summary ---
Author Organization [facility] Address [address] [place] [address] Care Team Providers Care Manager Telecom Name Role Phone Charlie Rowley P.A.-C. Primary Care Provider Encounter Details Date Type Department Care Team (Latest Contact Info) Description 07/02/2024 12:34 PM CDT - 07/02/2024 11:59 PM CDT Hospital Encounter Department of Laboratory Medicine in [place], [place] [address] [facility] [place] [address] Alberto De La Rosa Jr., M.D. [address], [place] [phone] Examination Test With Positive Result (HCC); Polycystic Ovary Syndrome Discharge Disposition: Home or Self Care Social History Tobacco Use Types Packs/Day Years Used Date Smoking Tobacco: Every Day E-cigarettes Passive Smoke Exposure: Current Smokeless Tobacco: Never Alcohol Use Standard Drinks/Week Comments Not Currently 0 (1 standard drink = 0.6 oz pur e alcohol) [facility] Utilities Answer Date Recorded In the past 12 months has [employer], gas, oil, or water [employer] threatened to shut off services in your home? No 06/30/2024 Overall Financial Resource Strain (CARDIA) Answe r Date Recorded How hard is it for you to pa y for the very basics like food, housing, medical care, and heating? Not hard at all 04/16/2022 PHQ-2 Answer Date Recorded PHQ-2 Score 2 06/30/2024 [facility] [place] of Occupat ional Health - Occupational Stress [...] file 04/16/2022 Child Education Answer Date Recorded Dump Worker Education Not on file 2022 Are you/your [...] your living situation today? I have a [facility] place to live 07/28/2023 Estimated Date of Delivery Comme nts Yes 03/02/2025 Based on last me nstrual period of 05/26/2024 (Exact Date) Sex and Gender Information Value Date Recorded Sex Assigned at Female 04/01/2019 2:47 PM HOUSE WIRER HELPER Legal Sex Female 7:51 AM HOUSE WIRER HELPER Gender Identity Female 04/01/2019 2:47 PM HOUSE WIRER HELPER Sexual Orientation Straight 11/30/2020 1: 11 PM CDT Occupation Industry Job Start Date Job End Date Student Not on file Not on file Not on file documented as of this encounter Medications at Time of Discharge clindamycin (Cleocin T) 1 % external solution Apply 1 Application topically 2 (two) times a day. Apply to armpits and groin when you have flare. 30 mL 1 04/24/2024 Lactobacillus no.46/B.animalis (PROBIOTIC-10 ORAL) Take 1 tablet by mouth daily. rkecyle-Mc-feye- FA 27 mg iron- 1 mg tablet Take 1 tablet by mouth daily. 90 tablet 3 04/08/2024 documented as of this encounter Plan of Treatment Upcoming Encounters Date Type Department Care Team (Late st Contact Info) Description 07/27/2024 1:30 PM CDT Silent Schedule Department of Obstetrics and Gynecology in [place], [place] [address], [place] [address] Alberto De La Rosa Jr., M.D. [address], [place] [address] 07/27/2024 2:40 PM CDT Routine Department of Family Medicine, [facility] [place] [facility], in [place], [place] [address] [place] [address] Tierney Benson M.D. [address] [place] [address] 08/19/2024 11:00 AM CDT Office Visit Department of Obstetrics and Gynecology in [place], [place] [address] [place] [address] Millie Salinas APRN, C.N.P. [address] [place] [address] Scheduled Orders Name Type Priority Associated Diagnoses Orde r Schedule Chlamydia / Gonorrhoeae Amplified RNA Microbiology Routine Examination Test With Positive Result (HCC) Once for 1 Occurrences starting 07/02/2024 until 07/02/2024 documented as of this encounter Procedures Procedure Name Priority Date/Time Associated Diagnosis Comments HBC TOTAL AB , S Routine 07/02/2024 12:57 PM CDT Examination Test With Positive Result (HCC) HBS ANTIBODY , S Routine 07/02/2024 12:57 PM CDT Examination Test With Positive Result (HCC) HCV AB SCRN , S Routine 07/03/19 12:57 PM CDT Examination Test With Positive Result (HCC) TESTING LOCATION Routine 07/02/2024 12:5 7 PM CDT HIV-1/-2 AG AND AB SCRN, PLASMA Routine 07/02/2024 12:57 PM CDT Examination Test With Positive Result (HCC) SYPHILIS TOTAL AB W/ REFLEX S Routine 07/02/2024 12:57 PM CDT Examination Test With Positive Result (HCC) THYROID FUNCTION CASCADE, S Routine 07/02/2024 12:57 PM CDT Examination Test With Positive Result (HCC) HBS ANTIGEN , S Routine 07/03/19 12:57 PM CDT Examination Test With Positive Result (HCC) RUBELLA ANTIBODIES, IGG Routine 07/03/19 12:57 PM CDT Examination Test With Positive Result (HCC) CBC WITH DIFFERENTIAL, B Routine 07/02/2024 12:57 PM CDT Examination Test With Positive Result (HCC) TYPE AND SCREEN Routine 07/02/2024 12:57 PM CDT Examination Test With Positive Result (HCC) HEMOGLOBIN ELECTROPHORESIS CASCADE, B Routine 07/02/2024 12:56 PM CDT Examination Test With Positive Result (HCC) HUMAN CHORIONIC GONADOTROPIN (HCG), FRIEDA, Routine 07/02/2024 12:56 PM CDT Examination Test With Positive Result (HCC) Polycystic Ovary Syndrome HEMOGLOBIN A1C, B Routine 07/02/2024 12: 56 PM CDT Examination Test With Positive Result (HCC) URINALYSIS WITH MICROSCOPIC IF INDICATED, U Routine 07/02/2024 12:45 PM CDT Examination Test With Positive Result (HCC) GA URINALYSIS AUTO W MICRO Routine 07/02/2024 12:45 PM CDT BACTERIAL CULTURE, AEROBIC + SUSC, URINE Routine 07/02/2024 12:45 PM CDT Examination Test With Positive Result (HCC) documented in this encounter Results * Testing Location (07/02/2024 12:57 PM CDT) Testing Location [facility] DEFAULT 07/02/2024 9:14 PM CDT AUST Blood 07/02/2024 12:5 7 PM CDT 07/02/2024 9:14 PM CDT Tierney Benson M.D. LAB BLOOD BANK TEST ORD ERABLES Final Result Performing Organization Address City/[facility] Co de Phone Number [facility] [address] [place] [address], [facility] AUST [facility] [address] [place] [address] * Thyroid Function [place] (07/02/2024 12:57 PM CDT) TSH, Sensitive 0.9 0.3 - 4.2 mIU/L 07/02/2024 3:11 PM CDT OW Blood (Blood, Venous) 07/02/2024 12:57 PM CDT 07/02/2024 2:36 PM CDT Tierney Benson M.D. LAB BLOOD ADD-ON Final Result Performing Organization Address [facility] Co de Phone Number [facility] [address] [place] [address], [place] OWAT [facility] [place] [address] [place] [address] * Syphilis Total Antibody with Reflex, S ([facility]) (07/02/2024 12:57 PM CDT) Syphilis Total Ab w/ Reflex Nonreactive Nonreactive 07/03/2024 3:26 PM CDT [facility] Comment: No serologic evidence of infection with T. pallidum (syphilis). Repeat testing may be considered in patients with suspected acute or primary syphilis in 2-4 weeks. For additional information on interpretation of the syphilis reverse algorithm and results, see: [email or web address] Blood (Blood, Venous) 07/02/2024 12:57 PM CDT 07/03/2024 10:58 AM CDT Tierney Benson M.D. LAB BLOOD ADD-ON Final Result [facility] [address] [place] [address], [facility] in [address] [address] * Rubella Antibodies, IgG (07/02/2024 12:57 PM CDT) Rubella Ab, IgG, S Positive 07/03/2024 3:26 PM CDT [facility] Comment: Results suggest response to immunization or prior exposure to the virus. ----REFERENCE VALUE---- Vaccinated: Positive (>=1.0 AI) Unvaccinated: Negative (<=0.7 AI) Rubella IgG Antibody Index 1.5 07/03/2024 3:26 PM CDT [facility] Blood (Blood, Venous) 07/02/2024 12:57 PM CDT 07/03/2024 10:58 AM CDT Tierney Benson M.D. LAB MICROBIOLOGY - BLOO D ORDERABLES Final Result [facility] [address] [place] [address], [facility] in [address] [address] * Hepatitis C Virus Antibody Screen (07/02/2024 12:57 PM CDT) HCV Ab Scrn , S Negative Negative 07/03/2024 11:34 AM CDT [facility] Comment: Consumption of high-dose biotin supplement within 12 hours of blood collection for this test can cause false-negative results. Blood (Blood, Venous) 07/02/2024 12:57 PM CDT 07/03/2024 8:10 AM CDT Tierney Benson M.D. LAB MICROBIOLOGY - BLOO D ORDERABLES Final Result [facility] [address] [place] [address] [facility] [address] [place] [address] * HIV-1/-2 Ag and Ab Scrn, Plasma [...] 12:57 PM CDT 07/03/2024 10:56 AM CDT us Tierney Benson M.D. LAB MICROBIOLOGY - BLOO D ORDERABLES Final Result [facility] [address] [place] [address], [facility] in [address] [address] * HBc Total Ab , Serum (07/02/2024 12:57 PM CDT) HBc Total Ab , S Negative Negative 07/03/2024 11:35 AM CDT [facility] Blood (Blood, Venous) 07/02/2024 12:57 PM CDT 07/03/2024 8:10 AM CDT Tierney Benson M.D. LAB MICROBIOLOGY - BLOO D ORDERABLES Final Result [facility] [address] [place] [address] [facility] [address] [place] [address] * HBs Antibody , Serum (07/02/2024 12:57 [...] MICROBIOLOGY - BLOO D ORDERABLES Final Result [facility] [address] [place] [address], [place] AUST [facility] [address] [place] [address] * HBs Antigen , Serum (07/02/2024 12:57 PM CDT) HBs Antigen , S Non reactive Non reactive 07/02/2024 9:45 PM CDT AUST Blood (Blood, Venous) 07/02/2024 12:57 PM CDT 07/02/2024 9:13 PM CDT us Tierney Benson M.D. LAB MICROBIOLOGY - BLOO D ORDERABLES Final Result [facility] [address] [place] [address], [facility] AUST [facility] [address] [place] [address] * (ABNORMAL) CBC with Differential, Blood (07/02/2024 [...] BLOOD ADD-ON Final Result Performing Organization Address [facility]/ZIP Co de Phone Number [facility] [address] [place] [address], [place] OWAT [facility] [place] [address] [place] [address] * Type and Screen (with Reflex Antibody ID) (07/02/2024 12:57 PM CDT) ABO Group A 07/02/2024 10:10 PM CDT [...] ORD ERABLES Final Result Performing Organization Address [facility] Co de Phone Number [facility] [address] [place] [address], [facility] AUST [facility] [address] [place] [address] * Hemoglobin Electrophoresis Evaluation (07/02/2024 12:56 PM CDT) Hb A 97.5 95.8 - 98.0 % 07/03/2024 1:54 PM CDT DTL Hb F 0.0 0.0 - 0.9 % 07/03/2024 1:54 PM CDT DTL Hb A2 2.5 2.0 - 3.3 % 07/03/2024 1:54 PM CDT DTL Comment: ----ADDITIONAL INFORMATION---- This test has been modified from the accounts receivable executive's instructions. Its performance characteristics were determined by [facility] in a manner consistent with CLIA requirements. This test has not been cleared or approved by the U.S. Food and Drug Administration. HPLC Hb Variant, B See Interpretation 07/03/2024 1:54 PM CDT DTL Comment: ----ADDITIONAL INFORMATION---- This test has been modified from the accounts receivable executive's instructions. Its performance characteristics were determined by [facility] in a manner consistent with CLIA requirements. [...] Benson M.D. LAB BLOOD ADD-ON Final Result [facility] [address] [place] [address], [facility] DTL [address] [place] [address] * Hemoglobin A1c (07/02/2024 12:56 PM CDT) Hemoglobin A1c, B 5.0 4.2 - 5.6 % 07/02/2024 3:07 PM CDT OWAT Blood (Blood, Venous) 07/02/2024 12:56 PM CDT 07/02/2024 2:36 PM CDT us Tierney Benson M.D. LAB BLOOD ADD-ON Final Result Performing Organization Address [facility]/ZIP Co de Phone Number [facility] [address] [place] [address], [facility] [place] [address] [place] [address] * (ABNORMAL) hCG (Human Chorionic Gonadotropin), Quantitative, (07/02/2024 12:56 PM CDT) Pathologist [facility] HCG, Quantitative, , P 527(H) <5 IU/L 07/02/2024 3:04 PM CDT OW Blood (Blood, Venous) 07/02/2024 12:56 PM CDT 07/02/2024 2:37 PM CDT us Alberto De La Rosa Jr., M.D. LAB BLOOD ADD-ON Final Result Performing Organization Address [facility]/ZIP Co de Phone Number [facility] [address] [place] [address], [facility] [place] [address] [place] [address] * (ABNORMAL) Microscopic Automated (07/02/2024 12:45 PM CDT) White Blood Cells 11-20(A) /hpf 07/02/2024 2:55 PM CDT OW Comment: ----REFERENCE VALUE---- Males: 0-3 Females: 0-10 Unknown: 0-10 Red Blood Cells Occ-2 0 - 2 /hpf 07/02/2024 2:55 PM CDT OWAT Hyaline Casts 1-3 /lpf 07/02/2024 2:55 PM CDT OWAT Squamous Cells 11-20 /hpf 07/02/2024 2:55 PM CDT OWAT Bacteria Present(A) None Seen 07/02/2024 2:55 PM CDT OWAT Urine 07/02/2024 12:4 5 PM CDT 07/02/2024 2:41 PM CDT Tierney Benson M.D. LAB URINE ORDERABLES Fi nal Result [facility] [address] [place] [address], [facility] OWAT [facility] [place] [address] [place] [address] * (ABNORMAL) Urinalysis with Microscopic if Indicated: [...] 8.0 07/02/2024 1:11 PM CDT FB60 Specific [place] >=1.030 1.001 - 1.035 07/02/2024 1:11 PM CDT FB60 Urobilinogen 0.2 0.2 - 1.0 mg/dL 07/02/2024 1:11 PM CDT FB60 Urine (Urine, Midstream) 07/02/2024 12:45 PM CDT 07/02/2024 1:07 PM CDT Tierney Benson M.D. LAB URINE ORDERABLES Fi nal Result [facility] [address] [place] [address], [facility] FB60 [facility] [place] [address] [place] [address] * Bacterial Culture, Aerobic + Susceptibility, Urine (07/02/2024 12:45 PM CDT) Urine Culture Urogenital microbiota, susceptibilities not performed per laboratory criteria. 07/03/2024 12:15 PM CDT [facility] Urine (Urine, Midstream) 07/02/2024 12:45 PM CDT 07/02/2024 7:04 PM CDT Comment:Specimen Source Site : Urine Tierney Benson M.D. LAB MICROBIOLOGY - GENE RAL ORDERABLES Final Result Performing Organization Address City/[facility] Co de Phone Number [facility] [place] [address], [facility] MKTO [facility] in [place] [address] [place] [address] documented in this encounter Visit Diagnoses Diagnosis Examination Test With Positive Result (HCC) Polycystic Ovary Syndrome documented in this encounter Additional Health Concerns Assessment Noted Time PHQ-9 Depression Total Score: 8 07/01/19 25 10:33 AM CDT documented as of this encounter Care Teams Manager Telecom Relationship Specialty Start Date End Date Charlie Rowley P.A.-C. [address] [place] [phone] PCP - General Family Medicine 9/23/21 documented as of this encounter
--- OUTSIDE RECORDS SUMMARY | 2024-07-03 14:00 | XMS_ITS | Encounter Summary ---
Author Organization [facility] Address [address] [place] [address] Care Team Providers Care Research Program Coordinator Name Role Phone Charlie Rowley P.A.-C. Primary Care Provider Reason for Visit * Outpatient (Routine) - Authorized Specialty Diagnoses / Procedures Referred By Sandy t Referred To Contact Obstetrics and Gynecology Diagnoses Cystitis Interstitial Millie Salinas APRN, C.N.P. [address] [phone] Phone: tel: fax: [facility] Region Referral ID Status Reason Start Date Expiration Date V isits Requested Visits Authorized [id number] Authorized 04/08/2024 10/08/2025 8 8 Encounter Details Date Type Department Care Team (Late st Contact Info) Description 07/03/2024 2:00 PM CDT Nurse Only Department of Obstetrics and Gynecology in [place], [place] [address] [place] [phone] Millie Salinas APRN, C.N.P. [address], [place] [address] Abril Amaya, LJoseP.N. [address] [place] [phone] Discharge Disposition: Home or Self Care Social History Tobacco Use Types Packs/Day Years Used Date Smoking Tobacco: Every Day E-cigarettes Passive Smoke Exposure: Current Smokeless Tobacco: Never Alcohol Use Standard Drinks/Week Comments Not Currently 0 (1 standard drink = 0.6 oz pur e alcohol) [facility] Utilities Answer Date Recorded In [...] Answer Date Recorded PHQ-2 Score 2 06/30/2024 [facility] of Occupat ional Health - Occupational [...] 8 06/30 Safety and Environment Answer Date Nole rded Are there any guns kept in or around your home? Yes 04/16/2022 Gun Storage Not on file 04/16/2022 Child Education Answer Date Recorded Solution Design Engineer Education Not on file 2022 Are [...] living situation today? I have a [facility] place to live 07/28/2023 Estimated Date of Delivery Comme nts Yes 03/02/2025 Based on last me nstrual period of 05/26/2024 (Exact Date) Sex and Gender Information Value Date Recorded Sex Assigned at Female 04/01/2019 2:47 PM BANK TELLER Legal Sex Female 7:51 AM BANK TELLER Gender Identity Female 04/01/2019 2:47 PM BANK TELLER Sexual Orientation Straight 11/30/2020 1: 11 PM CDT Occupation Industry Job Start Date Job End Date Student Not on file Not on file Not on file documented as of this encounter Progress Notes * Abril Amaya L.P.N. - 07/03/2024 2:00 PM CDT Bladder Instillation This is number 10 of NA. Prior to the procedure the following was reviewed: NA The patient was prepped in sterile fashion using betadine. Catheter size: 8 Fr Catheter type: Straight Medication administered (see MAR for specific details): Heparin/Lidocaine/Sodium bicarbonate (Bladder cocktail) Medication instilled via syringe. Catheter removed intact. Patient tolerated procedure well. The patient was provided with the following:Post procedure instructions Next treatment/follow up scheduled for: 1 week. Drops for post cath residual. Abril Amaya L.P.N. documented in this encounter Plan of Treatment Upcoming Encounters Date Type Department Care Team (Late st Contact Info) Description 07/27/2024 1:30 PM CDT Silent Schedule Department of Obstetrics and Gynecology in [place], [place] [address] [place] [phone] Alberto De La Rosa Jr., M.D. [address] [place] [phone] 07/27/2024 2:40 PM CDT Routine Department of Family Medicine, [facility], in [place], [place] [address] [place] [phone] Tierney Benson M.D. [address] [place] [phone] 08/19/2024 11:00 AM CDT Office Visit Department of Obstetrics and Gynecology in [place], [place] [address] [place] [phone] Millie Salinas, DEDE, C.N.P. [address] [place] [phone] documented as of this encounter Visit [...] Time PHQ-9 Depression Total Score: 8 07/01/19 10:33 AM CDT documented as of this encounter Care Teams Research Program Coordinator Relationship Specialty Start Date End Date Charlie Rowley P.A.-C. [address] [place] [phone] PCP - General Family Medicine 11/03/20 documented as of this encounter
--- OUTSIDE RECORDS SUMMARY | 2024-07-18 20:18 | XMS_ITS | Encounter Summary ---
Author Organization [facility] Address [address] [place] [address] Care Team Providers Care Subcontract Administrator Name Role Phone Charlie Rowley P.A.-C. Primary Care Provider Reason for Visit * Reason Comments Med Refill Encounter Details Date Type Department Care Team (Late st Contact Info) Description 06/10/2024 Refill Department of Obstetrics and Gynecology in [place], [place] [address] [phone] Millie Salinas, RECYCLABLE MATERIALS COLLECTOR, C.N.P. [address] [phone] Med Refill Social History Tobacco Use Types Packs/Day Years Used Date Smoking Tobacco: Every Day E-cigarettes Passive Smoke Exposure: Current Smokeless Tobacco: Never Alcohol Use Standard Drinks/Week Comments Not Currently 0 (1 standard drink = 0.6 oz pur e alcohol) [facility] Utilities Answer Date Recorded In the past 12 months has [employer], gas, oil, or water [email or web address] threatened to shut off services in your home? No 06/30/2024 Overall Financial Resource Strain (CARDIA) Answe r Date Recorded How hard is it for you to pa y for the very basics like food, housing, medical care, and heating? Not hard at all 04/16/2022 PHQ-2 Answer Date Recorded PHQ-2 Score 2 06/30/2024 [facility] of Occupat ional Health - Occupational Stress [...] file 04/16/2022 Child Education Answer Date Recorded Feed Elevator Worker Education Not on file 2022 Are [...] your living situation today? [facility] a [facility] place to live 07/28/2023 Comments No Sex and Gender Information Value Date Recorded Sex Assigned at Female 04/01/2019 2:47 PM PLANNING RN Legal Sex Female 7:51 AM PLANNING RN Gender Identity Female 04/01/2019 2:47 PM PLANNING RN Sexual Orientation Straight 11/30/2020 1: 11 PM CDT Occupation Industry Job Start Date Job End Date Student Not on file Not on file Not on file documented as of this encounter Plan of Treatment Upcoming Encounters Date Type Department Care Team (Late st Contact Info) Description 07/27/2024 1:30 PM CDT Silent Schedule Department of Obstetrics and Gynecology in [place], [place] [address] [phone] Alberto De La Rosa Jr., M.D. [address] [phone] 07/27/2024 2:40 PM CDT Routine Department of Family Medicine, [facility], in [place], [place] [address] [place] [phone] Tierney Benson M.D. [address] [phone] 08/19/2024 11:00 AM CDT Office Visit Department of Obstetrics and Gynecology in [place], [place] [address] [phone] Millie Salinas, RECYCLABLE MATERIALS COLLECTOR, C.N.P. [address] [phone] documented as of this encounter Visit Diagnoses Diagnosis Obesity Body Mass Index 30-39.9 Adult documented in this encounter Additional Health Concerns Assessment Noted Time PHQ-9 Depression Total Score: 14 024 1:44 PM PLANNING RN documented as of this encounter Care Teams Subcontract Administrator Relationship Specialty Start Date End Date Charlie Rowley P.A.-C. [address] [place] [phone] PCP - General Family Medicine 11/03/20 documented as of this encounter
--- OUTSIDE RECORDS SUMMARY | 2024-07-18 20:18 | XMS_ITS | Encounter Summary ---
Author Organization [facility] Address [address] [place] [address] Care Team Providers Care Director Voice Name Role Phone Charlie Rowley P.A.-C. Primary Care Provider Encounter Details Date Type Department Care Team (Late st Contact Info) Description 06/17/2024 Orders Only Department of Family Medicine, [facility], in [place], [place] [address] [place] [address] Charlie Rowley P.A.-C. [address] [place] [phone] Social History Tobacco Use Types Packs/Day Years Used Date Smoking Tobacco: Every Day E-cigarettes Passive Smoke Exposure: Current Smokeless Tobacco: Never Alcohol Use Standard Drinks/Week Comments Not Currently 0 (1 standard drink = 0.6 oz pur e alcohol) [facility] Utilities Answer Date Recorded In the past 12 months has e [employer], gas, oil, or water [employer] threatened to shut off services in your home? No 06/30/2024 Overall Financial Resource Strain (CARDIA) Answe r Date Recorded How hard is it for you to pa y for the very basics like food, housing, medical care, and heating? Not hard at all 04/16/2022 PHQ-2 Answer Date Recorded PHQ-2 Score 2 06/30/2024 [facility] of Occupat ional Health - Occupational Stress [...] file 04/16/2022 Child Education Answer Date Recorded Slip Box Changer Education Not on file 2022 Are you/your [...] Sex Assigned at Female 04/01/2019 2:47 PM CAP COVERER Legal Sex Female 7:51 AM CAP COVERER Gender Identity Female 04/01/2019 2:47 PM CAP COVERER Sexual Orientation Straight 11/30/2020 1: 11 PM CDT Occupation Industry Job Start Date Job End Date Student Not on file Not on file Not on file documented as of this encounter Plan of Treatment Upcoming Encounters Date Type Department Care Team (Late st Contact Info) Description 07/27/2024 1:30 PM CDT Silent Schedule Department of Obstetrics and Gynecology in [place], [place] [address] [phone] Alberto De La Rosa Jr., M.D. [address] [phone] 07/27/2024 2:40 PM CDT Routine Department of Family Medicine, [facility], in [place], [place] [address] [phone] Tierney Benson M.D. [address] [phone] 08/19/2024 11:00 AM CDT Office Visit Department of Obstetrics and Gynecology in [place], [place] [address] [phone] Millie Salinas, DEDE, C.N.P. [address] [phone] documented as of this encounter Visit Diagnoses Not on filedocumented in this encounter Additional Health Concerns Assessment Noted Time PHQ-9 Depression Total Score: 14 024 1:44 PM CAP COVERER documented as of this encounter Care Teams Director Voice Relationship Specialty Start Date End Date Charlie Rowley P.A.-C. [address] [facility] [place] [address] PCP - General Family Medicine 11/03/20 documented as of this encounter
--- OUTSIDE RECORDS SUMMARY | 2024-07-18 20:19 | XMS_ITS | Encounter Summary ---
Author Organization [facility] Address [address] [place] [address] Care Team Providers Care Quality Control Microbiology Supervisor Name Role Phone Charlie Rowley P.A.-C. Primary Care Provider Reason for Referral * Outpatient (Routine) - Authorized Specialty Diagnoses / Procedures Referred By Contjessica t Referred To Contact Obstetrics and Gynecology Millie Salinas APRN, C.N.P. [address] [place] [phone] Phone: tel: fax: [facility] Region Referral ID Status Reason Start Date Expiration Date V isits Requested Visits Authorized [id number] Authorized 06/23/2024 12/23/2025 1 1 Reason for Visit * Reason Onset Date Comments Rx Prior Authorization 06/23/2024 [facility] Encounter Details Date Type Department Care Team (Latest Contact Info) Description 06/23/2024 Clinical Communication Department of Obstetrics and Gynecology in [place], [place] [address] [place] [phone] Millie Salinas APRN, C.N.P. [address] [place] [phone] Rx Prior Authorization ([facility]) Social History Tobacco Use Types Packs/Day Years Used Date Smoking Tobacco: Every Day E-cigarettes Passive Smoke Exposure: Current Smokeless Tobacco: Never Alcohol Use Standard Drinks/Week Comments Not Currently 0 (1 standard drink = 0.6 oz pur e alcohol) [facility] Utilities Answer Date Recorded In [...] Answer Date Recorded PHQ-2 Score 2 06/30/2024 [facility] of Occupat ional Health - Occupational Stress [...] file 04/16/2022 Child Education Answer Date Recorded Director Supply Education Not on file 2022 Are you/your [...] your living situation today? I have a [facility] place to live 07/28/2023 Comments No Sex and Gender Information Value Date Recorded Sex Assigned at Female 04/01/2019 2:47 PM TRAWL NET MAKER Legal Sex Female 7:51 AM TRAWL NET MAKER Gender Identity Female 04/01/2019 2:47 PM TRAWL NET MAKER Sexual Orientation Straight 11/30/2020 1: 11 PM CDT Occupation Industry Job Start Date Job End Date Student Not on file Not on file Not on file documented as of this encounter Plan of Treatment Upcoming Encounters Date Type Department Care Team (Late st Contact Info) Description 07/27/2024 1:30 PM CDT Silent Schedule Department of Obstetrics and Gynecology in [place], [place] [address] [place] [phone] Alberto De La Rosa Jr., M.D. [address], [place] [address] 07/27/2024 2:40 PM CDT Routine Department of Family Medicine, [facility], in [place], [place] [address], [place] [phone] Tierney Benson M.D. [address] [phone] 08/19/2024 11:00 AM CDT Office Visit Department of Obstetrics and Gynecology in [place], [place] [address] [phone] Millie Salinas APRN, C.N.P. [address] [phone] Scheduled Referrals Name Type Priority Associated Diagnoses Order Schedule Obstetrics and Gynecology nurse visit (clinic) Outpatient Referral Routine Expected: 06/23/2024, Expires: 09/23/2025 documented as of this encounter Visit Diagnoses Not on filedocumented in this encounter Additional Health Concerns Assessment Noted Time PHQ-9 Depression Total Score: 14 024 1:44 PM TRAWL NET MAKER documented as of this encounter Care Teams Quality Control Microbiology Supervisor Relationship Specialty Start Date End Date Charlie Rowley P.A.-C. [address] [facility] [phone] PCP - General Family Medicine 11/03/20 documented as of this encounter
--- OUTSIDE RECORDS SUMMARY | 2024-07-18 20:19 | XMS_ITS | Encounter Summary ---
Author Organization [facility] Address [address] [place] [address] Care Team Providers Care Airline Managerial Supervisor Name Role Phone Charlie Rowley P.A.-C. Primary Care Provider Encounter Details Date Type Department Care Team ([facility] st Contact Info) Description 01/21/2022 Orders Only [facility] [address] [place] [address] [facility], Provider, MD Screening Test Laboratory Social History Tobacco Use Types Packs/Day Years Used Date Smoking Tobacco: Never E-cigarettes Smokeless Tobacco: Never Alcohol Use Standard Drinks/Week Comments Not Currently 0 (1 standard drink = 0.6 oz pur e alcohol) Overall Financial Resource Strain (CARDIA) Answe r Date Recorded How hard is it for you to pa y for the very basics like food, housing, medical care, and heating? Not very hard 10/18/2021 PHQ-2 Answer Date Recorded PHQ-9-M Total Score (5-9=Mil d, 10-14=Moderate, 15-19=Moderately Severe, 20-27=Severe) 14 10/06/2021 [facility] of Occupat ional Health - Occupational Stress Questionnaire Answer Date Recorded Do you feel stress - tense, restless, nervous, or anxious, or unable to sleep at night because your mind is troubled all the time - these days? Very much 10/18/2021 Exercise Vital Sign Answer Date Recorde d On average, how many days pe r week do you engage in moderate to strenuous exercise (like a brisk walk)? 1 day 10/18/2021 On average, how many minutes do you engage in exercise at this level? 10 min 10/18/2021 Hunger Vital Sign Answer Date Recorded Within the past 12 months, y ou worried that your food would run out before you got the money to buy more. Never true 10/19/19 Within the past 12 months, t he food you bought just didn't last and you didn't have money to get more. Never true 10/18/2021 PRAPARE - Transportation Answer Date Re corded In the past 12 months, has l ack of transportation kept you from medical appointments or from getting medications? No 08/2021 In the past 12 months, has l ack of transportation kept you from meetings, work, or from getting things needed for daily living? No 10/18/2021 Housing Stability Vital Sign Answer Jamey e Recorded In the last 12 months, was t here a time when you were not able to pay the mortgage or rent on time? Patient refused 10/19/19 In the last 12 months, how many places have you lived? 1 10/18/2021 In the last 12 months, was t here a time when you did not have a steady place to sleep or slept in a assisted (including now)? No 10/18/2021 Depression Answer Date Recor ded PHQ-9-M Total Score (5-9=Mil d, 10-14=Moderate, 15-19=Moderately Severe, 20-27=Severe) 14 10/06/2021 Safety and Environment Answer Date Noel rded Are there any guns kept in or around your home? Yes 10/18/2021 Are the guns stored unloaded and locked away? Ye s 10/18/2021 Child Education Answer Date Recorded Desk Director Education Not on file 2021 Are you/your child doing well enough in school? Yes 10/18/2021 Do you/your child have what you need to learn? Y es 10/18/2021 Read to Child Not on file 10/18/2021 Adolescent Substance Use Answer Date Re corded In the past 30 days, have yo u used substances like alcohol or marijuana? No 10/18/2021 In the past 30 days, have yo u used anything to get high (like other drugs not prescribed to you, over the counter medications, illegal drugs like cocaine, heroin, meth)? No 10/18/2021 Nutrition Answer Date Recorded Nutrition: EVOO Fat Source Unknown 03/31 Nutrition: Servings of Fruits/Vegetables per Day Not on file 03/31/2020 Dental Answer Date Recorded Dental: Regular Dentist Yes 04/21/19 22 Comments Unknown Sex and Gender Information Value Date Recorded Sex Assigned at Female 04/01/2019 2:47 PM ZIGZAG MACHINE OPERATOR Legal Sex Female 7:51 AM ZIGZAG MACHINE OPERATOR Gender Identity Female 04/01/2019 2:47 PM ZIGZAG MACHINE OPERATOR Sexual Orientation Straight 11/30/2020 1: 11 PM CDT Occupation Industry Job Start Date Job End Date Student Not on file Not on file Not on file documented as of this encounter Plan of Treatment Upcoming Encounters Date Type Department Care Team (Late st Contact Info) Description 07/27/2024 1:30 PM CDT Silent Schedule Department of Obstetrics and Gynecology in [place], [place] [address] [phone] Alberto De La Rosa Jr., M.D. [address] [phone] 07/27/2024 2:40 PM CDT Routine Department of Family Medicine, [facility], in [place], [place] [address] [phone] Tierney Benson M.D. [address] [phone] 08/19/2024 11:00 AM CDT Office Visit Department of Obstetrics and Gynecology in [place], [place] [address] [phone] Millie Salinas, EAP CONSULTANT, C.N.P. [address] [phone] documented as of this encounter Visit Diagnoses Diagnosis Screening Test Laboratory documented in this encounter Additional Health Concerns Assessment Noted Time PHQ-9 Depression Total Score: 14 022 8:17 AM CDT documented as of this encounter Care Teams Airline Managerial Supervisor Relationship Specialty Start Date End Date Charlie Rowley P.A.-C. [address] [place] [address] [place] [phone] PCP - General Family Medicine 11/03/20 documented as of this encounter
--- OUTSIDE RECORDS SUMMARY | 2024-07-18 20:19 | XMS_ITS | Encounter Summary ---
Author Organization [facility] Address [address] [place] [address] Care Team Providers Care Firestopper Installer Name Role Phone Charlie Rowley P.A.-C. Primary Care Provider Encounter Details Date Type Department Care Team (Late st Contact Info) Description 06/26/2024 Clinical Communication Department of Family Medicine, [facility], in [place], [place] [address] [place] [address] Charlie Rowley P.A.-C. [address] [place] [phone] Social History Tobacco Use Types Packs/Day Years Used Date Smoking Tobacco: Every Day E-cigarettes Passive Smoke Exposure: Current Smokeless Tobacco: Never Alcohol Use Standard Drinks/Week Comments Not Currently 0 (1 standard drink = 0.6 oz pur e alcohol) [facility] Utilities Answer Date Recorded In the past 12 months has e [employer], gas, oil, or water [employer] threatened to shut off services in your home? No 06/30/2024 Overall Financial Resource Strain (CARDIA) Answe r Date Recorded How hard is it for you to pa y for the very basics like food, housing, medical care, and heating? Not hard at all 04/16/2022 PHQ-2 Answer Date Recorded PHQ-2 Score 2 06/30/2024 [facility] of Occupat ional Health - Occupational Stress [...] file 04/16/2022 Child Education Answer Date Recorded Directional Driller Education Not on file 2022 Are you/your [...] Sex Assigned at Female 04/01/2019 2:47 PM INSTALLATION TECHNICIAN Legal Sex Female 7:51 AM INSTALLATION TECHNICIAN Gender Identity Female 04/01/2019 2:47 PM INSTALLATION TECHNICIAN Sexual Orientation Straight 11/30/2020 1: 11 PM CDT Occupation Industry Job Start Date Job End Date Student Not on file Not on file Not on file documented as of this encounter Miscellaneous Notes * Telephone Encounter - Alyse Batres LJoseP.N. - 06/26/2024 2:20 PM CDT Patient stopped into the clinic today for a Weight and height check. Wt. 89.80 kg Ht. 162.4 cm documented in this encounter Plan of Treatment Upcoming Encounters Date Type Department Care Team (Late st Contact Info) Description 07/27/2024 1:30 PM CDT Silent Schedule Department of Obstetrics and Gynecology in [place], [place] [address] [phone] Alberto De La Rosa Jr., M.D. [address] [place] [phone] 07/27/2024 2:40 PM CDT Routine Department of Family Medicine, [facility], in [place], [place] [address], [place] [address] Tierney Benson M.D. [address] [place] [phone] 08/19/2024 11:00 AM CDT Office Visit Department of Obstetrics and Gynecology in [place], [place] [address] [place] [address] Millie Salinas, DEDE, C.N.P. [address] [place] [phone] documented as of this encounter Visit Diagnoses Not on filedocumented in this encounter Additional Health Concerns Assessment Noted Time PHQ-9 Depression Total Score: 14 024 1:44 PM INSTALLATION TECHNICIAN documented as of this encounter Care Teams Firestopper Installer Relationship Specialty Start Date End Date Charlie Rowley P.A.-C. [address] [place] [phone] PCP - General Family Medicine 11/03/20 documented as of this encounter
--- OUTSIDE RECORDS SUMMARY | 2024-07-18 20:19 | XMS_ITS | Encounter Summary ---
Author Organization [facility] Address [address] [place] [address] Care Team Providers Care Door To Door Selling Distributor Name Role Phone Charlie Rowley P.A.-C. Primary Care Provider Reason for Referral * Outpatient (Routine) - Authorized Specialty Diagnoses / Procedures Referred By Contjessica t Referred To Contact Charlie Rowley P.A.-C. [address] [facility] [place] [address] Phone: tel: fax: [facility] Region Referral ID Status Reason Start Date Expiration Date V isits Requested Visits Authorized [id number] Authorized 06/25/2024 12/25/2025 1 1 Encounter Details Date Type Department Care Team (Late st Contact Info) Description 06/25/2024 Clinical Communication Department of Family Medicine, [facility], in [place], [place] [address] [place] [address] Charlie Rowley P.A.-C. [address] [place] [address] Social History Tobacco Use Types Packs/Day Years Used Date Smoking Tobacco: Every Day E-cigarettes Passive Smoke Exposure: Current Smokeless Tobacco: Never Alcohol Use Standard Drinks/Week Comments Not Currently 0 (1 standard drink = 0.6 oz pur e alcohol) [facility] Utilities Answer Date Recorded In the past [...] Answer Date Recorded PHQ-2 Score 0 04/24/2024 [facility] - Occupational Stress Questionnaire Answer Date Recorded [...] file 04/16/2022 Child Education Answer Date Recorded Wader Boot Top Assembler Education Not on file 2022 Are you/your [...] your living situation today? I have a [facility] place to live 07/28/2023 Comments No Sex and Gender Information Value Date Recorded Sex Assigned at Female 04/01/2019 2:47 PM DISPLAY SCREEN FABRICATOR Legal Sex Female 7:51 AM DISPLAY SCREEN FABRICATOR Gender Identity Female 04/01/2019 2:47 PM DISPLAY SCREEN FABRICATOR Sexual Orientation Straight 11/30/2020 1: 11 PM CDT Occupation Industry Job Start Date Job End Date Student Not on file Not on file Not on file documented as of this encounter Plan of Treatment Upcoming Encounters Date Type Department Care Team (Late st Contact Info) Description 07/27/2024 1:30 PM CDT Silent Schedule Department of Obstetrics and Gynecology in [place], [place] [address] [place] [phone] Alberto De La Rosa Jr., M.D. [address], [place] [address] 07/27/2024 2:40 PM CDT Routine Department of Family Medicine, [facility], in [place], [place] [address], [place] [address] Tierney Benson M.D. [address] [place] [address] [place] [phone] 08/19/2024 11:00 AM CDT Office Visit Department of Obstetrics and Gynecology in [place], [place] [address] [place] [phone] Millie Salinas, DEDE, C.N.P. [address] [place] [phone] Scheduled Referrals Name Type Priority Associated Diagnoses Orde r Schedule Primary Care nurse visit (clinic) - [facility] Region; Weight check (adult) Outpatient Referral Routine Expected: 06/25/2024, Expires: 09/25/2025 documented as of this encounter Visit Diagnoses Not on filedocumented in this encounter Additional Health Concerns Assessment Noted Time PHQ-9 Depression Total Score: 14 024 1:44 PM DISPLAY SCREEN FABRICATOR documented as of this encounter Care Teams Door To Door Selling Distributor Relationship Specialty Start Date End Date Charlie Rowley P.A.-C. [address] [place] [phone] PCP - General Family Medicine 11/03/20 documented as of this encounter
--- OUTSIDE RECORDS SUMMARY | 2024-07-18 20:19 | XMS_ITS | Encounter Summary ---
Author Organization [facility] Address [address] [place] [address] Care Team Providers Care Liability Claims Manager Name Role Phone Charlie Rowley P.A.-C. Primary Care Provider Encounter Details Date Type Department Care Team (Late st Contact Info) Description 07/02/2024 Results Follow-Up Department of Family Medicine, [facility], in [place], [place] [address] [phone] Ashlyn Milan, DEDE, C.N.P. [address], [place] [address] Hemoglobin A1c, Thyroid Function [place], Urinalysis with Microscopic if Indicated: Urine, Midstream, Additional followed-up results: 6 Social History Tobacco Use Types Packs/Day Years Used Date Smoking Tobacco: Every Day E-cigarettes Passive Smoke Exposure: Current Smokeless Tobacco: Never Alcohol Use Standard Drinks/Week Comments Not Currently 0 (1 standard drink = 0.6 oz pur e alcohol) [facility] Utilities Answer Date Recorded In [...] Answer Date Recorded PHQ-2 Score 2 06/30/2024 [facility] [place] of Occupat ional Health - Occupational Stress [...] file 04/16/2022 Child Education Answer Date Recorded Last Greaser Education Not on file 2022 Are you/your [...] your living situation today? I have a [facility] place to live 07/28/2023 Estimated Date of Delivery Comme nts Yes 03/02/2025 Based on last me nstrual period of 05/26/2024 (Exact Date) Sex and Gender Information Value Date Recorded Sex Assigned at Female 04/01/2019 2:47 PM SHOOK SPLICER Legal Sex Female 7:51 AM SHOOK SPLICER Gender Identity Female 04/01/2019 2:47 PM SHOOK SPLICER Sexual Orientation Straight 11/30/2020 1: 11 PM CDT Occupation Industry Job Start Date Job End Date Student Not on file Not on file Not on file documented as of this encounter Plan of Treatment Upcoming Encounters Date Type Department Care Team (Late st Contact Info) Description 07/27/2024 1:30 PM CDT Silent Schedule Department of Obstetrics and Gynecology in [place], [place] [address] [phone] Alberto De La Rosa Jr., M.D. [address] [phone] 07/27/2024 2:40 PM CDT Routine Department of Family Medicine, [facility], in [place], [place] [address] [place] [phone] Tierney Benson M.D. [address] [place] [phone] 08/19/2024 11:00 AM CDT Office Visit Department of Obstetrics and Gynecology in [place], [place] [address] [place] [phone] Millie Salinas, DEDE, C.N.P. [address] [phone] documented as of this encounter Visit Diagnoses Not on filedocumented in this encounter Additional Health Concerns Assessment Noted Time PHQ-9 Depression Total Score: 8 07/01/19 25 10:33 AM CDT documented as of this encounter Care Teams Liability Claims Manager Relationship Specialty Start Date End Date Charlie Rowley P.A.-C. [address] [place] [address], [place] [phone] PCP - General Family Medicine 11/03/20 documented as of this encounter
--- OUTSIDE RECORDS SUMMARY | 2024-07-18 20:19 | XMS_ITS | Encounter Summary ---
Author Organization [facility] Address [address] [place] [address] Care Team Providers Care Engraver Letter Name Role Phone Charlie Rowley P.A.-C. Primary Care Provider Reason for Referral * Outpatient (Routine) - Authorized Specialty Diagnoses / Procedures Referred By Sandy chamberlain Referred To Contact Video Medicine Diagnoses Obesity Body Mass Index 30-39.9 Adult Millie Salnias APRN, C.N.P. [address] [place] [address] Phone: tel: fax: [facility] Region Referral ID Status Reason Start Date Expiration Date V isits Requested Visits Authorized [id number] Authorized 06/18/2024 12/18/2025 1 1 Scheduling Instructions 30 min f/u Encounter Details Date Type Department Care Team (Late st Contact Info) Description 06/18/2024 Orders Only Department of Obstetrics and Gynecology in [place], [place] [address] [place] [address] Millie Salinas APRN, C.N.P. [address] [place] [phone] Obesity Body Mass Index 30-39.9 Adult (Primary Dx) Social History Tobacco Use Types Packs/Day Years Used Date Smoking Tobacco: Every Day E-cigarettes Passive Smoke Exposure: Current Smokeless Tobacco: Never Alcohol Use Standard Drinks/Week Comments Not Currently 0 (1 standard drink = 0.6 oz pur e alcohol) [facility] Utilities Answer Date Recorded In the past [...] Answer Date Recorded PHQ-2 Score 2 06/30/2024 [facility] [place] of Occupat ional Health - Occupational Stress [...] file 04/16/2022 Child Education Answer Date Recorded Filter Screen Cleaner Education Not on file 2022 Are you/your [...] your living situation today? I have a [facility] place to live 07/28/2023 Comments No Sex and Gender Information Value Date Recorded Sex Assigned at Female 04/01/2019 2:47 PM LEAD NET SOFTWARE DEVELOPER Legal Sex Female 7:51 AM LEAD NET SOFTWARE DEVELOPER Gender Identity Female 04/01/2019 2:47 PM LEAD NET SOFTWARE DEVELOPER Sexual Orientation Straight 11/30/2020 1: 11 PM CDT Occupation Industry Job Start Date Job End Date Student Not on file Not on file Not on file documented as of this encounter Plan of Treatment Upcoming Encounters Date Type Department Care Team (Late st Contact Info) Description 07/27/2024 1:30 PM CDT Silent Schedule Department of Obstetrics and Gynecology in [place], [place] [address] [place] [address] Alberto De La Rosa Jr., M.D. [address] [place] [address] 07/27/2024 2:40 PM CDT Routine Department of Family Medicine, [facility], in [place], [place] [address] [phone] Tierney Benson M.D. [address] [phone] 08/19/2024 11:00 AM CDT Office Visit Department of Obstetrics and Gynecology in [place], [place] [address] [place] [address] Millie Salinas, DEDE CJoseN.P. [address] [place] [address] Scheduled Referrals Name Type Priority Associated Diagnoses Orde r Schedule Video anyplace visit Outpatient Referral Routine Obesity Body Mass Index 30-39.9 Adult Expected: 08/18/2024, Expires: 09/18/2025 documented as of this encounter Visit Diagnoses Diagnosis Obesity Body Mass Index 30-39.9 Adult- Primary documented in this encounter Additional Health Concerns Assessment Noted Time PHQ-9 Depression Total Score: 14 024 1:44 PM LEAD NET SOFTWARE DEVELOPER documented as of this encounter Care Teams Engraver Letter Relationship Specialty Start Date End Date Charlie Rowley P.A.-C. [address] [place] [phone] PCP - General Family Medicine 11/03/20 documented as of this encounter
--- OUTSIDE RECORDS SUMMARY | 2024-07-18 20:19 | XMS_ITS | Encounter Summary ---
Author Organization [facility] Address [address] [place] [address] Care Team Providers Care Nuclear Plant Equipment Operator Name Role Phone Charlie Rowley P.A.-C. Primary Care Provider Reason for Visit * Reason Onset Date Comments Nurse Assessment 06/29/2024 Encounter Details Date Type Department Care Team (Latest Contact Info) Description 06/29/2024 Clinical Communication Department of Obstetrics and Gynecology in [place], [place] [address] [phone] Millie Salinas APRN, C.N.P. [address] [place] [address] Nurse Assessment Social History Tobacco Use Types Packs/Day Years Used Date Smoking Tobacco: Every Day E-cigarettes Passive Smoke Exposure: Current Smokeless Tobacco: Never Alcohol Use Standard Drinks/Week Comments Not Currently 0 (1 standard drink = 0.6 oz pur e alcohol) [facility] Utilities Answer Date Recorded In the past 12 months has [employer], gas, oil, or water [employer] threatened to shut off services in your home? No 06/30/2024 Overall Financial Resource Strain (CARDIA) Answe r Date Recorded How hard is it for you to pa y for the very basics like food, housing, medical care, and heating? Not hard at all 04/16/2022 PHQ-2 Answer Date Recorded PHQ-2 Score 2 06/30/2024 [facility] of Occupat ional Health - Occupational [...] file 04/16/2022 Child Education Answer Date Recorded Civil Laboratory Technician Education Not on file 2022 Are you/your [...] Sex Assigned at Female 04/01/2019 2:47 PM PUNCH HAND Legal Sex Female 7:51 AM PUNCH HAND Gender Identity Female 04/01/2019 2:47 PM PUNCH HAND Sexual Orientation Straight 11/30/2020 1: 11 PM CDT Occupation Industry Job Start Date Job End Date Student Not on file Not on file Not on file documented as of this encounter Miscellaneous Notes * Telephone Encounter - Marianela Guzman R.N. - 06/29/2024 10:51 AM CDT ASSESSMENT Has had a positive test and wondering about medications: vitamin and phentermine(believes she was told to stop this med if positive test) PLAN Recommend to continue vitamin and stop phentermine. Has RN NOB appointment scheduled. LMP: 05/26/2024 EDC: 03/02/2025 Disposition/Recommendation: recommended continue engagement in self-management activities. Information/Education: patient/caller able to teach back. Caller agreeable to plan of care: yes. The following references were used: nursing clinical judgement. documented in this encounter Plan of Treatment Upcoming Encounters Date Type Department Care Team (Late st Contact Info) Description 07/27/2024 1:30 PM CDT Silent Schedule Department of Obstetrics and Gynecology in [place], [place] [address] [place] [address] Alberto De La Rosa Jr., M.D. [address] [place] [address] 07/27/2024 2:40 PM CDT Routine Department of Family Medicine, [facility], in [place], [place] [address] [phone] Tierney Benson M.D. [address] [phone] 08/19/2024 11:00 AM CDT Office Visit Department of Obstetrics and Gynecology in [place], [place] [address] [phone] Millie Salinas, DEDE, C.N.P. [address] [phone] documented as of this encounter Visit Diagnoses Not on filedocumented in this encounter Additional Health Concerns Assessment Noted Time PHQ-9 Depression Total Score: 14 024 1:44 PM PUNCH HAND documented as of this encounter Care Teams Nuclear Plant Equipment Operator Relationship Specialty Start Date End Date Charlie Rowley P.A.-C. [address] [place] [phone] PCP - General Family Medicine 11/03/20 documented as of this encounter
--- OUTSIDE RECORDS SUMMARY | 2024-07-18 20:19 | XMS_ITS | Encounter Summary ---
Author Organization [facility] Address [address] [place] [address] Care Team Providers Care Electric Meter Tester Helper Name Role Phone Charlie Rowley P.A.-C. Primary Care Provider Reason for Visit * Reason Onset Date Comments Possible 07/01/2024 +HPT Encounter Details Date Type Department Care Team (Latest Contact Info) Description 07/01/2024 Clinical Communication Department of Obstetrics and Gynecology in [place], [place] [address] [address] Cindi Sellers R.N. [address], [place] [address] Possible (+HPT) Social History Tobacco Use Types Packs/Day Years Used Date Smoking Tobacco: Every Day E-cigarettes Passive Smoke Exposure: Current Smokeless Tobacco: Never Alcohol Use Standard Drinks/Week Comments Not Currently 0 (1 standard drink = 0.6 oz pur e alcohol) [facility] Utilities Answer Date Recorded In the past 12 months has [employer], gas, oil, or water [employer] threatened to shut off services in your home? No 06/30/2024 Overall Financial Resource Strain (CARDIA) Answe r Date Recorded How hard is it for you to pa y for the very basics like food, housing, medical care, and heating? Not hard at all 04/16/2022 PHQ-2 Answer Date Recorded PHQ-2 Score 2 06/30/2024 [facility] [place] of Occupat ional Health - Occupational Stress [...] file 04/16/2022 Child Education Answer Date Recorded Outside Salesman Education Not on file 2022 Are you/your [...] have a [place] place to live 07/28/2023 Estimated Date of Delivery Comme nts Yes 03/02/2025 Based on last me nstrual period of 05/26/2024 (Exact Date) Sex and Gender Information Value Date Recorded Sex Assigned at Female 04/01/2019 2:47 PM CLINICAL DOCUMENTATION NURSE Legal Sex Female 7:51 AM CLINICAL DOCUMENTATION NURSE Gender Identity Female 04/01/2019 2:47 PM CLINICAL DOCUMENTATION NURSE Sexual Orientation Straight 11/30/2020 1: 11 PM CDT Occupation Industry Job Start Date Job End Date Student Not on file Not on file Not on file documented as of this encounter Plan of Treatment Upcoming Encounters Date Type Department Care Team (Late st Contact Info) Description 07/27/2024 1:30 PM CDT Silent Schedule Department of Obstetrics and Gynecology in [place], [place] [address] [phone] Alberto De La Rosa Jr., M.D. [address] [phone] 07/27/2024 2:40 PM CDT Routine Department of Family Medicine, [facility], in [place], [place] [address] [place] [address] Tierney Benson M.D. [address] [place] [address] 08/19/2024 11:00 AM CDT Office Visit Department of Obstetrics and Gynecology in [place], [place] [address] [place] [phone] Millie Salinas, AURICULAR DETOXIFICATION SPECIALIST, C.N.P. [address] [phone] documented as of this encounter Results * (ABNORMAL) hCG (Human Chorionic Gonadotropin), Quantitative, (07/02/2024 12:56 PM CDT) HCG, Quantitative, , P 527(H) <5 IU/L 07/02/2024 3:04 PM CDT OWAT Blood (Blood, Venous) 07/02/2024 12:56 PM CDT 07/02/2024 2:37 PM CDT us Alberto De La Rosa Jr., M.D. LAB BLOOD ADD-ON Final Result [facility] [address] [place] [address], [facility] in [place] [address] [place] [address] documented in this encounter Visit Diagnoses Diagnosis Examination Test With Positive Result (HCC)- Primary Polycystic Ovary Syndrome documented in this encounter Additional Health Concerns Assessment Noted Time PHQ-9 Depression Total Score: 8 07/01/19 25 10:33 AM CDT documented as of this encounter Care Teams Electric Meter Tester Helper Relationship Specialty Start Date End Date Charlie Rowley P.A.-C. [address] [place] [address] [place] [phone] PCP - General Family Medicine 11/03/20 documented as of this encounter
--- OUTSIDE RECORDS SUMMARY | 2024-07-18 20:19 | XMS_ITS | Encounter Summary ---
Author Organization [facility] Address [address] [place] [address] Care Team Providers Care Metalsmith Name Role Phone Charlie Rowley P.A.-C. Primary Care Provider Reason for Referral * Outpatient (Routine) - Authorized Specialty Diagnoses / Procedures Referred By Contjessica t Referred To Contact Diagnoses Allergy Penicillin Initial Procedures Penicillin Skin Test Keegan Terry M.D. [address] [address] Phone: tel: fax: [facility] Region Referral ID Status Reason Start Date Expiration Date V isits Requested Visits Authorized [id number] Authorized 07/10/2024 10/10/2025 1 1 Encounter Details Date Type Department Care Team (Late st Contact Info) Description 07/07/2024 Referral Triage Department of Allergy in [place], [place] [address] [address] Christine Patel, RJoseNJose [address] [phone] Social History Tobacco Use Types Packs/Day Years Used Date Smoking Tobacco: Every Day E-cigarettes Passive Smoke Exposure: Current Smokeless Tobacco: Never Alcohol Use Standard Drinks/Week Comments Not Currently 0 (1 standard drink = 0.6 oz pur e alcohol) [facility] Utilities Answer Date Recorded In the [...] Answer Date Recorded PHQ-2 Score 2 06/30/2024 [facility] - Occupational Stress Questionnaire Answer Date [...] file 04/16/2022 Child Education Answer Date Recorded Shape Carver Education Not on file 2022 Are you/your [...] your living situation today? I have a [facility] place to live 07/28/2023 Estimated Date of Delivery Comme nts Yes 03/02/2025 Based on last me nstrual period of 05/26/2024 (Exact Date) Sex and Gender Information Value Date Recorded Sex Assigned at Female 04/01/2019 2:47 PM PRESCHOOL ASSOCIATE TEACHER Legal Sex Female 7:51 AM PRESCHOOL ASSOCIATE TEACHER Gender Identity Female 04/01/2019 2:47 PM PRESCHOOL ASSOCIATE TEACHER Sexual Orientation Straight 11/30/2020 1: 11 PM CDT Occupation Industry Job Start Date Job End Date Student Not on file Not on file Not on file documented as of this encounter Plan of Treatment Upcoming Encounters Date Type Department Care Team (Late st Contact Info) Description 07/27/2024 1:30 PM CDT Silent Schedule Department of Obstetrics and Gynecology in [place], [place] [address] [place] [address] Alberto De La Rosa Jr., M.D. [address] [place] [address] 07/27/2024 2:40 PM CDT Routine Department of Family Medicine, [facility], in [place], [place] [address] [place] [address] Tierney Benson M.D. [address] [place] [phone] 08/19/2024 11:00 AM CDT Office Visit Department of Obstetrics and Gynecology in [place], [place] [address], [place] [phone] Millie Salinas, DEDE, C.N.PJose [address] [place] [phone] Scheduled Orders Name Type Priority Associated Diagnoses Orde r Schedule Penicillin Skin Test Procedures Routine Allergy Penicillin Initial Expected: 07/10/2024 (Approximate), Expires: 10/07/2025 documented as of this encounter Visit Diagnoses Diagnosis Allergy Penicillin Initial- Primary documented in this encounter Additional Health Concerns Assessment Noted Time PHQ-9 Depression Total Score: 8 07/01/19 25 10:33 AM CDT documented as of this encounter Care Teams Metalsmith Relationship Specialty Start Date End Date Charlie Rowley P.A.-C. [address] [place] [phone] PCP - General Family Medicine 11/03/20 documented as of this encounter
--- OUTSIDE RECORDS SUMMARY | 2024-07-18 20:19 | XMS_ITS | Clinical Summary ---
Author Organization [facility] Address [address] [place] [address] Care Team Providers Care Machine Assembler Supervisor Name Role Phone Charlie Rowley P.A.-C. Primary Care Provider Source Comments Patient records contain information from all sites at [facility]. For routine questions regarding patient records, call [phone] during business hours, M-F 8:00 AM - 5:00 PM Central Time. Record requests for emergency care only can be directed to [phone] at any time.[facility] Allergies Active Allergy Reactions Criticality Noted Date Comments Penicillins Hives (Reselect Reaction) 0 Medications * This document contains information received from the source organization and may not represent a complete record from that organization. [id number] n-FA 27 mg iron- 1 mg tablet Take 1 tablet by mouth daily. 90 tablet 3 5 Active clindamycin (Cleocin T) 1 % external solution Apply 1 Application topically 2 (two) times a day. Apply to armpits and groin when you have flare. 30 mL 1 5 Active Lactobacillus no.46/B.animal is (PROBIOTIC-10 ORAL) Take 1 tablet by mouth daily. Active phentermine (Adipex-P) 37.5 mg tabletIndicati ons:Obesity Body Mass Index 30-39.9 Adult TAKE 1 TABLET(37.5 MG) BY MOUTH DAILY BEFORE BREAKFAST 31 tablet 5 07/02/19 25 Discontin ued(Pregn bridgett) naltrexone-bup ropion (Contrave) 8-90 mg per extended release tabletIndicati ons:Obesity Body Mass Index 30-39.9 Adult Take 1 tablet by mouth daily. 30 tablet 1 5 07/02/19 25 Discontin ued(Pregn bridgett) Hospital, Clinic, or Other Facility Administered Medication Ordered Dose Route Frequency Start Date End Date Status BUPivacaine 0.25 % (2.5 mg/mL) injection 30 mL (Marcaine)Indications:C ystitis Interstitial 30 mL inj Weekly 05/12/2024 08/04/2024 Acti ve heparin (porcine) injection 10,000 UnitsIndications:Cystit is Interstitial 90540 Units SC Weekly 05/12/2024 08/04/2024 Active lidocaine HCL 2 % topical jelly 1 Application (Glydo)Indications:Cyst itis Interstitial 1 Application urethral As needed 05/11/2024 Acti ve Active Problems Problem Noted Date Diagnosed Date 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 Note mild improvement at the 1 month of treatment shaila. PT starts 05/25 at [facility]. Will continue weekly instillations with nursing and I will see her back in clinic in 1 month. Polycystic Ovary Syndrome 08/02/2023 Overview (04/08/2024): D/C'leobardo Seals and is working on Wt Loss for management. She will be in touch is she doesn't have a period for over 2 months. She does not want control and she and her partner indicated that they would be happy if she became . Obesity Body Mass Index 30-39.9 Adult 08/02/2023 Overview (06/18/2024): Starting Wt 12/25/2023: 105 kg (232.2 lbs) on home scale. BMI 40.13. Used Wegovy for a few months. 04/08/2024: Wt. 94.8 kg/BMI 36.12. Stopped Wegovy due to side effects (N/V) and expense. Started phentermine in addition to exercise and calorie restrictive diet. 05/11/2024: Wt. 91.1 kg/200 lbs/BMI 34.71. Will continue Phentermine, diet, exercise. Will f/u in 1 month. 06/18/2024: Wt unchanged. Will discontinue phentermine when the month is done. Would like to try Contrave. F/u in 2 months. Constipation 04/19/2022 Overview (04/08/2024): Possible IBS-constipation. Encouraged to treat with MiraLax and fiber. Worse with Wegovy, which she stopped. Will also complete pelvic floor PT. Pelvic Floor Tension Myalgia 04/19/2022 Overview (04/08/2024): Referral to [facility] was ordered. Deep Dyspareunia 04/19/2022 Overview (04/08/2024): Initiated treatment for IC and PFTM. Will start pelvic floor PT with [facility] in [place]. Acne 03/22/2022 Anxiety 04/24/2021 Estimated Date of Delivery Comme nts Yes 03/02/2025 Based on last me nstrual period of 05/26/2024 (Exact Date) Resolved Problems Problem Noted Date Diagnosed Date Resolved Date Incomplete Bladder Emptying 04/19/2022 04/08/2024 Overview (04/19/2022): History of elevated postvoid residual. PVR was 34 mL per ultrasound today. Surveillance Intrauterine Device 03/10/2020 05/13/2023 Overview (03/01/2023): Mirena IUD inserted 03/03/2020. Pelvic ultrasound performed 04/19/2022 confirms proper placement and location of her IUD. Additional symptoms have presented since that time. Will proceed with follow-up ultrasound. I will plan to see her back in clinic following the ultrasound to discuss results and recommendations going forward. Depression Major One Episode Moderate 07/03/2017 04/24/2021 Anxiety Generalized Disorder 07/03/2017 04/24/2021 Encounters Date Type Department Care Team Description 07/07/2024 Referral Triage Department of Allergy in [place], [place] [address] [place] [address] Christine Patel, R.N. 07/03/2024 2:00 PM CDT Nurse Only Department of Obstetrics and Gynecology in [place], [place] [address] [place] [phone] Millie Salinas APRN, C.N.P. Abril Amaya L.P.N. Discharge Disposition: Home or Self Care 07/02/2024 12:34 PM CDT - 07/02/2024 11:59 PM CDT Hospital Encounter Department of Laboratory Medicine in [place], [place] [address] [place] [address] Alberto De La Rosa Jr., M.D. Examination Test With Positive Result (HCC); Polycystic Ovary Syndrome Discharge Disposition: Home or Self Care 07/02/2024 Results Follow-Up Department of Family Medicine, [facility], in [place], [place] [address] [place] [phone] Ashlyn Milan APRN, C.N.P. Hemoglobin A1c, Thyroid Function Cloud, Urinalysis with Microscopic if Indicated: Urine, Midstream, Additional followed-up results: 6 07/01/2024 3:30 PM CDT Initial Department of Obstetrics and Gynecology in [place], [place] [address] [place] [phone] Provider, Cindi Murrell R.N. GA: 5w1d 07/01/2024 Clinical Communication Department of Obstetrics and Gynecology in [place], [place] [address] [place] [phone] Cindi Sellers R.N. Possible (+HPT) 06/29/2024 11:30 AM CDT Internal E-Consult Division of Endocrinology in [place], [place] [address] [place] [phone] Luna Wiley APRN C.N.PJose, M.S.N. 06/29/2024 Clinical Communication Department of Obstetrics and Gynecology in [place], [place] [address] [place] [phone] Millie Salinas APRN, C.N.P. Nurse Assessment 06/26/2024 2:15 PM CDT Nurse Only Department of [facility], [facility], in [address] [phone] Charlie Rowley P.A.-C. Walker, Lori A, L.PJoseNJose Nurse Visit (Weight and height) 06/26/2024 Clinical Communication Department of [facility], [address] [phone] Charlie Rowley P.A.-C. 06/25/2024 Clinical Communication Department of [facility], [address] [phone] Charlie Rowley P.A.-C. 06/23/2024 Clinical Communication Department of Obstetrics and Gynecology in [place], [place] [address] [address] [phone] Millie Salinas APRN, C.N.P. Rx Prior Authorization (Contrave) 06/18/2024 9:00 AM CDT Nurse Only Department of Obstetrics and Gynecology in [place], [place] [address] [phone] Millie Salinas APRN, C.N.P. Caren Tena L.P.Dian Nurse Visit (BLADDER INSTILLATION ) Discharge Disposition: Home or Self Care 06/18/2024 Orders Only Department of Obstetrics and Gynecology in [place], [place] [address] [phone] Millie Salinas APRN, C.N.P. Obesity Body Mass Index 30-39.9 Adult (Primary Dx) 06/17/2024 Orders Only Department of [facility], [facility], in [address] [phone] Charlie Rowley P.A.-C. 06/10/2024 2:30 PM CDT Nurse Only Department of Obstetrics and Gynecology in [address] [phone] Millie Salinas APRN, C.NCaren Barnes L.P.NJose Nurse Visit (Bladder instillation ) 06/10/2024 Refill Department of Obstetrics and Gynecology in [address] [phone] Millie Salinas APRN, C.N.PJose Med Refill 06/04/2024 4:00 PM CDT Nurse Only Department of Obstetrics and Gynecology in [address] [phone] Millie Salinas APRN, C.N.P. Fink, Lisa A, L.P.NJose Nurse Visit (Bladder instillation ) Discharge Disposition: Home or Self Care 05/25/2024 1:45 PM CDT Nurse Only Department of Obstetrics and Gynecology in [address] [phone] Millie Salinas APRN, C.NCaren Barnes, L.P.NJose Nurse Visit (Bladder instillation ) 05/22/2024 10:00 AM CDT Nurse Only Department of Obstetrics and Gynecology in [address] [phone] Millie Salinas APRN, C.N.P. Fink, Lisa A L.P.NJose Nurse Visit (Bladder instillation ) 05/17/2024 8:10 PM CDT E-Visit [facility] [address] [place] [phone] Tin, Flores A, HEALTHCARE ADMINISTRATION INTERN, C.N.P., M.S.N. Express Care Online for Vaginal Yeast Infection (female anatomy, age 18-64 years) 05/11/2024 9:00 AM CDT Office Visit Department of Obstetrics and Gynecology in [address] [phone] Millie Salinas APRN C.N.P. Obesity Body Mass Index 30-39.9 Adult; Cystitis Interstitial Discharge Disposition: Home or Self Care 05/09/2024 Refill Department of Obstetrics and Gynecology in [address] [phone] Millie Salinas APRN C.N.P. Med Refill 05/08/2024 10:30 AM CDT Nurse Only Department of Obstetrics and Gynecology in [address] [phone] Millie Salinas APRN, C.N.PCaren Newton L.P.NJose Nurse Visit (Bladder instillation ) Discharge Disposition: Home or Self Care 05/01/2024 3:45 PM CDT Nurse Only Department of Obstetrics and Gynecology in [address] [phone] Millie Salinas APRN C.N.PCaren Newton L.P.NJose Nurse Visit (Bladder instillation) 04/27/2024 7:50 AM CDT E-Visit [facility] [address] [place] [phone] Damaris Reinoso APRN C.N.P., D.N.P. Express Care Online for Sinus Symptoms (sinusitis) 04/27/2024 Results Follow-Up Department of Family Medicine, [facility], in [place], [place] [address] [place] [phone] Makenzie Loco, PJoseARohit. Bacterial Culture, Aerobic + Susceptibility 04/24/2024 9:00 AM CDT Office Visit Department of Family Medicine, [facility], in [place], [place] [address] [place] [phone] Makenzie Loco P.A.-C. Furuncle Trunk (Primary Dx) 04/23/2024 4:00 PM CDT Nurse Only Department of Obstetrics and Gynecology in [place], [place] [address] [place] [phone] Millie Salinas, DEDE, CJoseN.PCaren Newton L.P.N. Nurse Visit (Bladder instillation ) 04/23/2024 Nurse Triage Department of [facility], [facility], in [place], [place] [address] [place] [phone] Millie Simmons S, RJoseN. Cyst from Last 3 Months Immunizations Immunization Administration Dates Next Due 9vHPV 12/12/2016,05/25/2016 DTaP (Infanrix, Tripedia) 09/13/2005,,2004,2004 DTaP / Hep B / IPV (Pediarix) 2004, 005,2004 DTaP-IPV 06/10/2009 H1N1 All Forms 01/11/2009,12/16/2008 H1N1 Inj 01/11/2009 HepA Pediatric/Adolescent 2013,06/22/2011 HepB Pediatric/Adolescent 2004,,2004,2004 Hib (PRP-OMP) (PedvaxHIB) 09/13/2005,2004, 2004 IPV 2004,2004,2004 Influenza TIV (IM) 01/11/2012,12/01/2010, 010 Influenza, Seasonal, Injectable 01/11/20 12,12/22/2009,03/27/2006,2005,01/09/2005,2004 Influenza, Unspecified 03/18/2023(Deferr ed: Other),04/24/2021(Deferred: Other),11/02/2008 MCV4 (Menactra)(Discontinued) 11/30/2020 MCV4 (Menveo) 05/25/2016 MMR 06/10/2009,06/07/2005 PCV13 06/10/2009 PCV7 (discontinued) 09/13/2005, 5,2004,2004 SARS-COV-2 (COVID-19) - MODERNA(Discontinued) 03/18/2023(Deferred: Patient decision) Tdap 05/25/2016 ANYA 06/10/2009,06/07/2005 influenza trivalent vaccine (6 months and older)(PF) 11/15/2012,12/01/2010,03/27/2006 influenza vaccine quad (FLUZONE/FLUARIX) (6 months and older)(PF) 03/18/2023(Deferred: Patient decision),02/16/2020,12/24/2014, 014 Family History Medical History Relation Name Comments No Known Problems Brother 1 No Known Problems Brother 2 Anxiety disorder Father tia No Known Problems Maternal Grandfather Knee replacement Maternal Grandmother Anxiety disorder Mother breezy Asthma Mother breezy Thyroid disease Mother breezy Asthma Paternal Grandfather Diabetes Paternal Grandfather No Known Problems Paternal Grandmother Relation Name Status Comments Brother 1 Alive Brother 2 Alive Father tia Alive Maternal Grandfather Alive Maternal Grandmother Alive Mother breezy Alive Paternal Grandfather Alive Paternal Grandmother Alive Social History Tobacco Use Types Packs/Day Years Used Date Smoking Tobacco: Every Day E-cigarettes Passive Smoke Exposure: Current Smokeless Tobacco: Never Tobacco Cessation:Ready to Q uit: Not Asked; Counseling Given: Not Answered Alcohol Use Standard Drinks/Week Comments Not Currently 0 (1 standard drink = 0.6 oz pur e alcohol) [facility] Utilities Answer Date Recorded In the past 12 months has e [employer], gas, oil, or water VouchedFor threatened to shut off services in your home? No 06/30/2024 Overall Financial Resource Strain (CARDIA) Answe r Date Recorded How hard is it for you to pa y for the very basics like food, housing, medical care, and heating? Not hard at all 04/16/2022 PHQ-2 Answer Date Recorded PHQ-2 Score 2 06/30/2024 [facility] Questionnaire Answer [...] money to buy more. Never true 07/01/19 Within the past 12 months, t he [...] file 04/16/2022 Child Education Answer Date Recorded Cyber Systems Operations Specialist Education Not on file 2022 Are you/your [...] your living situation today? [facility] 07/28/2023 Estimated Date of Delivery Comme nts Yes 03/02/2025 Based on last me nstrual period of 05/26/2024 (Exact Date) Sex and Gender Information Value Date Recorded Sex Assigned at Female 04/01/2019 2:47 PM PERITONEAL DIALYSIS REGISTERED NURSE Legal Sex Female 7:51 AM PERITONEAL DIALYSIS REGISTERED NURSE Gender Identity Female 04/01/2019 2:47 PM PERITONEAL DIALYSIS REGISTERED NURSE Sexual Orientation Straight 11/30/2020 1: 11 PM CDT Occupation Industry Job Start Date Job End Date Student Not on file Not on file Not on file Last Filed Vital Signs Vital Sign Reading Time Taken Comments Blood Pressure 119/77 05/11/2024 8:59 AM CDT Pulse 90 05/11/2024 8:59 AM CDT Temperature 36 C (96.8 F) 04/24/2024 9:01 AM CDT Respiratory Rate 20 04/24/2024 9:01 AM CDT Oxygen Saturation 98% 02/24/2024 10: 48 AM PERITONEAL DIALYSIS REGISTERED NURSE Inhaled Oxygen Concentration - - Weight 89.8 kg (197 lb 15.6 oz) 06/26/2024 2:19 PM CDT Height 162.4 cm (5' 3.94) 06/26/2024 2:19 PM CD T Body Mass Index 34.05 06/26/2024 2:19 PM CDT Plan of Treatment Upcoming Encounters Date Type Department Care Team (Late st Contact Info) Description 07/27/2024 1:30 PM CDT Silent Schedule Department of Obstetrics and Gynecology in [place], [place] [address] [place] [phone] Alberto De La Rosa Jr., M.D. [address] [phone] 07/27/2024 2:40 PM CDT Routine Department of Family Medicine, [facility], in [place], [place] [address] [phone] Tierney Benson M.D. [address] [phone] 08/19/2024 11:00 AM CDT Office Visit Department of Obstetrics and Gynecology in [place], [place] [address] [phone] Millie Salinas, HEALTHCARE ADMINISTRATION INTERN, C.N.P. [address] [phone] Health Maintenance Due Date Last Done Comments TB Screening during Well Chi ld Visit 2004 1 week Well Child Check-Up 2004 1 month Well Child Check-Up 2004 2 month Well Child Check-Up 2004 4 month Well Child Check-Up 2004 9 month Well Child Check-Up 02/04/2005 15 month Well Child Check-Up 08/05/2005 18 month Well Child Check-Up 11/05/2005 2 year Well Child Check-Up 05/05/2006 30 month Well Child Check-Up 11/05/2006 3 year Well Child Check-Up 05/06/2007 Well Child Check-Up Complete d in Past Year 05/06/2007 5 year Well Child Check-Up 05/05/2009 6 year Well Child Check-Up 05/05/2010 Pneumococcal vaccine (0-49 y ears) (2 of 2 - PPSV23) 2010 06/10/2009, 09/13/2005, 2004, Additional history exists 7 year Well Child Check-Up 05/06/2011 7 year Well Child Check-Up 05/05/2012 10 year Well Child Check-Up 05/05/2014 12 year Well Child Check-Up 05/05/2016 12 year Well Child Check-Up 05/05/2017 13 year Well Child Check-Up 05/05/2018 16 year Well Child Check-Up 05/05/2021 17 year Well Child Check-Up 05/05/2022 19 year Well Child Check-Up 05/06/2023 Chlamydia and Gonorrhea Screening 09/11/2023 09/10/2022, 01/05/2022, 04/13/2021, Additional history exists COVID-19 Vaccine (3 - 2023-2 5 season) 2023 12/19/2020, 11/25/2020 Influenza Vaccine (#1) 2023 , 12/24/2014, 11/09/2013, Additional history exists Vision Screening during Well Child Visit 02/16/2024 02/16/2020 19 year Well Child Check-Up 05/05/2024 Well Child Check-Up ([facility]) 05/05/2024 Tdap vaccine - (27- 36 weeks) (1 - Tdap) 12/01/2024 05/25/2016, 09/13/2005, 2004, Additional history exists RSV vaccine - (32-3 6 weeks) or 60+ years (1 - Risk 1-dose series) 01/05/2025 Tobacco Cessation counseling 07/01/2025 07/01/2024, 10/21/2023 DTaP,Tdap,and Td Vaccines (7 - Td or Tdap) 05/25/2026 05/25/2016, 06/10/2009, 09/13/2005, Additional history exists 04/24/2021 Hepatitis B Vaccines Completed 2004, 2004, 2004, Additional history exists IPV Vaccines Completed 06/10/2009, 11/12, 2004, Additional history exists Varicella Vaccines Completed 06/10/2009, 06/07/2005 HPV Vaccines Completed 12/12/2016, 05/25/2016 14 year Well Child Check-Up Completed 02/16/2020 Hearing Screening during [facility] Child Visit Completed 02/16/2020 Meningococcal Vaccine Completed 11/30/2020, 017 Hepatitis B Screening Discontinued 09/10/2022 Depression Screening (Annual PHQ-2) Completed 04/24/2024, 04/24/2024 Anemia/Iron Deficiency Scree alex During Well Child Visit (if High Risk Menstruating Female) Completed 07/02/2024, 08/02/2023 HIV Screening Completed 07/02/2024, 09/10/2022 Hepatitis C Screening Completed 07/02/2024, 023 Medical Devices Implanted Type Area Coin Teller Device Identifier Shelf Expiration Date Model / Serial / Lot Hardware E.G. Pins/Screws/R ods Hardware e.g. pins/screws/maria elena s Left: Hip Description:Left side hip sc rew Mirena Iud-03/03/2020 Implanted:Qty : 1 on 03/03/2020 by Millie Salinas APRN, C.N.P. Intrauterine Device Midline: Uterus Benjamín 05/01/2022 / / [id number] Description:Mirena IUD Procedures Procedure Name Priority Date/Time Associated Diagnosis Comments TESTING LOCATION Routine 07/02/2024 12:5 7 PM CDT THYROID FUNCTION CASCADE, S Routine 07/02/2024 12:57 [...] CDT Examination Test With Positive Result (HCC) HIV-1/-2 AG AND AB SCRN, PLASMA Routine 07/02/2024 12:57 PM CDT Examination Test With Positive Result (HCC) HBC TOTAL AB , S Routine 07/02/2024 12:57 PM CDT Examination Test With Positive Result (HCC) HBS ANTIBODY , S Routine 07/02/2024 12:57 PM CDT Examination Test With Positive Result (HCC) HBS ANTIGEN , S Routine 07/03/19 12:57 PM CDT Examination Test With Positive Result (HCC) HEMOGLOBIN ELECTROPHORESIS CASCADE, B Routine 07/02/2024 12:56 PM CDT Examination Test With Positive Result (HCC) HEMOGLOBIN A1C, B Routine 07/02/2024 12: 56 PM CDT Examination Test With Positive Result (HCC) HUMAN CHORIONIC GONADOTROPIN (HCG), FRIEDA, Routine 07/02/2024 12:56 PM CDT Examination Test With Positive Result (HCC) Polycystic Ovary Syndrome NV URINALYSIS AUTO W MICRO Routine 07/02/2024 12:45 PM CDT URINALYSIS WITH MICROSCOPIC IF INDICATED, U Routine 07/02/2024 12:45 PM CDT Examination Test With Positive Result (HCC) BACTERIAL CULTURE, AEROBIC + SUSC, URINE Routine 07/02/2024 12:45 PM CDT Examination Test With Positive Result (HCC) VAGINITIS PANEL, AMPLIFIED RNA Routine 05/22/2024 10:12 AM CDT Cystitis Interstitial Vaginitis BACTERIAL CULTURE, AEROBIC + SUSC Routine 04/24/2024 9:35 AM CDT Furuncle Trunk HEPATITIS B SURFACE ANTIGEN Routine 09/10/2022 3:13 PM CDT Screening For Venereal Disease CHLAMYDIA/GONORRHOEAE AMPLIFIED RNA Routine 09/10/2022 2:57 PM CDT Screening For Venereal Disease from Last 3 Months or Most Recently Relevant to Health Maintenance Results * HBc Total Ab , Serum (07/02/2024 12:57 PM CDT) HBc Total Ab , S Negative Negative 07/03/2024 11:35 AM CDT [facility] Blood (Blood, Venous) 07/02/2024 12:57 PM CDT 07/03/2024 8:10 AM CDT us Tierney Benson M.D. LAB MICROBIOLOGY - BLOO D ORDERABLES Final Result Performing Organization Address City/[facility] Co de Phone Number [facility] [address] [place], [place] [phone] [place] [address] [place] [address] * HBs Antibody , Serum (07/02/2024 12:57 [...] MICROBIOLOGY - BLOO D ORDERABLES Final Result [facility] [address] [place] [address], [place] AUST [facility] [address] [place] [address] * Hepatitis C Virus Antibody Screen (07/02/2024 12:57 PM CDT) HCV Ab Scrn , S Negative Negative 07/03/2024 11:34 AM CDT [facility] Comment: Consumption of high-dose biotin supplement within 12 hours of blood collection for this test can cause false-negative results. Blood (Blood, Venous) 07/02/2024 12:57 PM CDT 07/03/2024 8:10 AM CDT Tierney Benson M.D. LAB MICROBIOLOGY - BLOO D ORDERABLES Final Result Performing Organization Address City/[facility]/ZIP Co de Phone Number [facility] [address] [place] [address] [facility] [address] [place] [address] * Testing Location (07/02/2024 12:57 PM CDT) Testing Location [facility] DEFAULT 07/02/2024 9:14 PM CDT [facility] Blood 07/02/2024 12:5 7 PM CDT 07/02/2024 9:14 PM CDT Tierney Benson M.D. LAB BLOOD BANK TEST ORD ERABLES Final Result [facility] [address] [place] [address], [place] [facility] [address] [place] [address] * HIV-1/-2 Ag and Ab Scrn, Plasma [...] MICROBIOLOGY - BLOO D ORDERABLES Final Result [facility] [address] [place] [address], [facility] in [place] [address] * Syphilis Total Antibody with Reflex, S ([facility]) (07/02/2024 12:57 PM CDT) Syphilis Total Ab w/ Reflex Nonreactive Nonreactive 07/03/2024 3:26 PM CDT [facility] Comment: No serologic evidence of infection with T. pallidum (syphilis). Repeat testing may be considered in patients with suspected acute or primary syphilis in 2-4 weeks. For additional information on interpretation of the syphilis reverse algorithm and results, see: [email or web address] Blood (Blood, Venous) 07/02/2024 12:57 PM CDT 07/03/2024 10:58 AM CDT Tierney Benson M.D. LAB BLOOD ADD-ON Final Result [facility] [address] [place] [address], [place] [facility] [place] [address] [place] [address] * Thyroid Function Cloud (07/02/2024 12:57 PM CDT) TSH, Sensitive 0.9 0.3 - 4.2 mIU/L 07/02/2024 3:11 PM CDT [facility] Blood (Blood, Venous) 07/02/2024 12:57 PM CDT 07/02/2024 2:36 PM CDT Tierney Benson M.D. LAB BLOOD ADD-ON Final Result [facility] [address] [place] [address], [place] [facility] in [place] [address] [place] [address] * HBs Antigen , Serum (07/02/2024 12:57 PM CDT) HBs Antigen , S Non reactive Non reactive 07/02/2024 9:45 PM CDT [facility] Blood (Blood, Venous) 07/02/2024 12:57 PM CDT 07/02/2024 9:13 PM CDT Tierney Benson M.D. LAB MICROBIOLOGY - BLOO D ORDERABLES Final Result [facility] [address] [place] [address], [place] [facility] [address] [place] [address] * Rubella Antibodies, IgG (07/02/2024 12:57 PM CDT) Pathologist [facility] Rubella Ab, IgG, S Positive 07/03/2024 3:26 [...] MICROBIOLOGY - BLOO D ORDERABLES Final Result [facility] [address] [place] [id number], [facility] in [address] [address] * (ABNORMAL) CBC with Differential, Blood (07/02/2024 12:57 PM CDT) Pathologist [facility] Hemoglobin 13.0 11.6 - 15.0 g/dL 07/02/2024 [...] BLOOD ADD-ON Final Result Performing Organization Address City/State/[facility] Co de Phone Number [facility] [address] [place] [phone], [facility] OWAT [facility] [place] [address] [place] [address] * Type and Screen (with Reflex Antibody [...] 12:57 PM CDT 07/02/2024 9:14 PM CDT us Tierney Benson M.D. LAB BLOOD BANK TEST ORD ERABLES Final Result [facility] [address] [place] [address], [facility] - [facility] [address] [place] [address] * Hemoglobin Electrophoresis Evaluation (07/02/2024 12:56 PM CDT) Hb A 97.5 95.8 - 98.0 % 07/03/2024 1:54 PM CDT DTL Hb F 0.0 0.0 - 0.9 % 07/03/2024 1:54 PM CDT DTL Hb A2 2.5 2.0 - 3.3 % 07/03/2024 1:54 PM CDT DTL Comment: ----ADDITIONAL INFORMATION---- This test has been modified from the salvage worker's instructions. Its performance characteristics were determined by [facility] in a manner consistent with CLIA requirements. This test has not been cleared or approved by the U.S. Food and Drug Administration. HPLC Hb Variant, B See Interpretation 07/03/2024 1:54 PM CDT DTL Comment: ----ADDITIONAL INFORMATION---- This test has been modified from the salvage worker's instructions. Its performance characteristics were determined by [facility] in a manner consistent with CLIA requirements. [...] BLOOD ADD-ON Final Result Performing Organization Address City/[facility]/ZIP Co de Phone Number [facility] [address] [place] [address], [facility] DTL [address] [place] [address] * (ABNORMAL) hCG (Human Chorionic Gonadotropin), Quantitative, (07/02/2024 12:56 PM CDT) HCG, Quantitative, , P 527(H) <5 IU/L 07/02/2024 3:04 PM CDT OWAT Blood (Blood, Venous) 07/02/2024 12:56 PM CDT 07/02/2024 2:37 PM CDT Alberto De La Rosa Jr., M.D. LAB BLOOD ADD-ON Final Result Performing Organization Address [facility]/ZIP Co de Phone Number [facility] [address] [place] [address], [place] OWAT [facility] [place] [address] [place] [address] * Hemoglobin A1c (07/02/2024 12:56 PM CDT) Hemoglobin A1c, B 5.0 4.2 - 5.6 % 07/02/2024 3:07 PM CDT OWAT Blood (Blood, Venous) 07/02/2024 12:56 PM CDT 07/02/2024 2:36 PM CDT Tierney Benson M.D. LAB BLOOD ADD-ON Final Result [facility] [address] [place] [address], [place] OW[place] [facility] [place] [address] [place] [address] * (ABNORMAL) Urinalysis with Microscopic if Indicated: [...] 8.0 07/02/2024 1:11 PM CDT FB60 Specific [place] >=1.030 1.001 - 1.035 07/02/2024 1:11 PM CDT FB60 Urobilinogen 0.2 0.2 - 1.0 mg/dL 07/02/2024 1:11 PM CDT FB60 Urine (Urine, Midstream) 07/02/2024 12:45 PM CDT 07/02/2024 1:07 PM CDT us Tierney Benson M.D. LAB URINE ORDERABLES Fi nal Result [facility] [address] [place] [address], [place] FB60 [facility] [place] [address] [place] [address] * (ABNORMAL) Microscopic Automated (07/02/2024 12:45 PM CDT) White Blood Cells 11-20(A) /hpf 07/02/2024 2:55 PM CDT OWAT Comment: ----REFERENCE VALUE---- Males: 0-3 Females: 0-10 [...] M.D. LAB URINE ORDERABLES Fi nal Result [facility] [address] [place] [address], [facility] OWAT [facility] [place] [address], [place] [address] * Bacterial Culture, Aerobic + Susceptibility, Urine (07/02/2024 12:45 PM CDT) Urine Culture Urogenital microbiota, susceptibilities not performed per laboratory criteria. 07/03/2024 12:15 PM CDT MKTO Urine (Urine, Midstream) 07/02/2024 12:45 PM CDT 07/02/2024 7:04 PM CDT Comment:Specimen Source Site : Urine Tierney Benson M.D. LAB MICROBIOLOGY - GENE RAL ORDERABLES Final Result [facility] [address] [place] [address], [facility] MKTO [facility] [place] [address] [place] [address] * Vaginitis Panel, Amplified RNA (05/22/2024 10:12 AM CDT) Bacterial Vaginosis, Amplified RNA Negative Negative 05/22/2024 9:24 PM CDT MKTO Comment: A negative result does not exclude infection. Assay result is based on relative amounts of Lactobacillus (L. gasseri, L. crispatus, L. jensenii), Gardnerella vaginalis and Atopobium vaginae. Louisa species, Amplified RNA Negative Negative 05/22/2024 9:19 PM CDT MKTO Comment: No RNA detected from [place]a albicans, C. tropicalis, C. parapsilosis or C. dubliniensis. A negative result does not exclude infection. Louisa glabrata, Amplified RNA Negative Negative 05/22/2024 9:19 PM CDT MKTO Comment: No RNA detected from Louisa glabrata. A negative result does not exclude infection. Trichomonas vaginalis Amplified RNA Negative Negative 05/22/2024 9:19 PM CDT MKTO Swab (Vagina) 05/22/2024 10: 12 AM CDT 05/22/2024 1:45 PM CDT Alberto De La Rosa Jr., M.D. LAB MICROBIOLOGY - GEN ERAL ORDERABLES Final Result [facility] [address] [place] [address], [facility] MKTO [address] [address] * Bacterial Culture, Aerobic + Susceptibility (04/24/2024 9:35 AM CDT) Pathologist [facility] Bacterial Culture, Aerobic + Susc Skin microbiota 04/26/2024 2:30 PM CDT MKTO Swab (Back) 04/24/2024 9:35 AM CDT 04/24/2024 1:36 PM CDT Comment:Specimen Source Site : Swab us Makenzie Loco P.A.-C. LAB MICROBIOLOGY - GENERAL ORDERABLES Final Result Performing Organization Address City/[facility]/ZIP Co de Phone Number [facility] [address] [place] [address], [facility] [address] [place] [address] * Hepatitis B Surface Antigen (09/10/2022 3:13 PM CDT) HBs Antigen, S Nonreactive Nonreactive 09/10/2022 8:03 PM CDT MKTO Blood (Blood, Venous) 09/10/2022 3:13 PM CDT 09/10/2022 6:36 PM CDT us Ben Posey M.D. LAB MICROBIOLOGY - BLOOD ORD ERABLES Final Result Performing Organization Address [facility] Co de Phone Number [facility] [address] [place] [address], [facility] [place] [address] [place] [address] * Chlamydia / Gonorrhoeae Amplified RNA (09/10/2022 2:57 PM CDT) Source Swab, Vagina 09/11/2022 11:37 AM CDT MKTO Chlamydia trachomatis amplified RNA Negative Negative 09/11/2022 11:37 AM CDT MKTO Source Swab, Vagina 09/11/2022 11:37 AM CDT MKTO Neisseria gonorrhoeae amplified RNA Negative Negative 09/11/2022 11:37 AM CDT MKTO Swab (Vagina) 09/10/2022 2:5 7 PM CDT 09/10/2022 6:28 PM CDT us Ben Posey M.D. 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 [address] [place] [address] BETTY Bell [phone] PCP - General Family Medicine 11/03/20
[2024-07-18 20:22] VITALS: BP 153/89; PULSE 105; RESP 18; TEMP 36.4; O2SAT 99; BMI 34.4
--- NOTE | 2024-07-18 20:24 | ED.GENADULT ---
HPI - General Adult General Chief complaint: Nausea/Vomiting Stated complaint: 7 weeks , vomiting for a week Time Seen by Provider: 07/18/24 20:18 History of Present Illness HPI narrative: Patient is a 19-year-old female who is about 7 weeks estimated gestational age. She is scheduled see Lian varghese next week Saturday. Plans on having her baby here. She lives with in [place] she is here with her family. She has had nausea vomiting for about a week on and not able to eat very much. No fevers, chills, chest pain, dysuria frequency. No vaginal bleeding. Related Data Home Medications ?Medication ?Instructions ?Recorded ?Confirmed lactobacillus comb no.10 20 20,000 mmu cells PO DAILY 07/18/24 07/18/24 billion cell capsule (Probiotic) vit no.95-ferrous 1 tab PO DAILY 07/18/24 07/18/24 fumarate 28 mg-folic acid 800 mcg tablet () Allergies Allergy/AdvReac Type Severity Reaction Status Date / Time amoxicillin Allergy Mild Verified 07/18/24 20:26 Penicillins Allergy Mild Verified 07/18/24 20:26 Review of Systems Status of ROS: Reports: 6 or more systems reviewed and unremarkable except as noted in History and below PFSH PFS Social History service: No Exam Narrative: Exam Narrative: Objective: In general the patient is in no apparent distress very pleasant Alert orient x3 No cyanosis Abdomen is benign soft Const: Vital Signs, click to edit/add: Vital Signs - 24 hr 07/18/24 20:22 Temperature 97.6 F Pulse Rate [Right Pulse Oximeter] 105 H Respiratory Rate 18 Blood Pressure [Ri ght Upper Arm] 153/89 H Pulse Oximetry 99 Oxygen Delivery Me thod Room Air Course Vital Signs Vital signs: Initial Vital Signs Temperature 97.6 F 07/18/24 20:22 Temperature Source Temporal Artery Scan 07/18/24 20:22 Pulse Rate 105 H 07/18/24 20:22 Respiratory Rate 18 07/18/24 20:22 Blood Pressure 153/89 H 07/18/24 20:22 Blood Pressure Mean 110 H 07/18/24 20:22 Blood Pressure Position Sitting 07/18/24 20:22 Pulse Oximetry 99 07/18/24 20:22 Oxygen Delivery Method Room Air 07/18/24 20:22 Vital Signs Temperature 97.6 F 07/18/24 20:22 Pulse Rate 105 H 07/18/24 20:22 Respiratory Rate 18 07/18/24 20:22 Blood Pressure 153/89 H 07/18/24 20:22 Pulse Oximetry 99 07/18/24 20:22 Oxygen Delivery Method Room Air 07/18/24 20:22 Temperature 97.6 F 07/18/24 20:22 Pulse Rate 105 H 07/18/24 20:22 Respiratory Rate 18 07/18/24 20:22 Blood Pressure 153/89 H 07/18/24 20:22 Pulse Oximetry 99 07/18/24 20:22 Oxygen Delivery Method Room Air 07/18/24 20:22 Medications Administered Medications: Discontinued Medications Generic Name Dose Route Start Last Admin Trade Name Freq PRN Reason Stop Dose Admin Sodium Chloride 1,000 mls @ 6,000 mls/hr 07/18/24 20:30 07/18/24 21:10 0.9 % Sodium Chloride 1000 Ml IV 07/18/24 20:39 Infused .Q10M DAVIS Infusion Ondansetron HCl 4 mg 07/18/24 20:18 07/18/24 20:32 Ondansetron 2 Mg/Ml Inj IVP 07/18/24 20:19 4 mg ONCE ONE Administration Medical Decision Making MDM Narrative Medical decision making narrative: 19-year-old female with 7 weeks estimated gestational age by LMP, with hyperemesis likely. Patient will get IV fluid 1 L Zofran 4 mg IV. I will have her follow up with the [facility] as planned on Saturday for initial OB. They can discuss ongoing antiemetic medicine. Discussed that this could be recurrent problems she can return as needed. She mom comfortable plan. I do not think there is indication ultrasound now especially given her upcoming appointment on Saturday for initial OB. Discharge Plan Discharge Clinical Impression: Hyperemesis gravidarum Patient Disposition: Home w/ Parent or Adult Condition: Improved Instructions: Hyperemesis Gravidarum (ED) Additional Instructions: Light activity, follow up with [facility] on Saturday as planned, fluids as tolerated. Advance diet as tolerated. Activity Level: Light activity Discharge Diet: Full Liquid Diet Detail: Advance diet as tolerated Prescriptions: No Action PNV cmb#95-ferrous fumarate-FA [] 28 mg iron- 800 mcg tablet 1 tab PO DAILY Probiotic 20 billion cell capsule 20,000 mmu cells PO DAILY Rx Instructions: administer with a meal Follow Up/Referrals: Provider,Not a Local [Primary Care Provider, Family Practice] Stand Alone Forms: [employer] Info Instructions
[2024-07-18] MEDS: 0.9 % SODIUM CHLORIDE 1000 ml 1,000 ML 6000 ML IV (20:32)
[2024-07-18] MEDS: ONDANSETRON 2 MG/ML inj 4 MG IVP (20:32)
[2024-07-18 21:00] VITALS: BP 113/65; PULSE 84; RESP 16; O2SAT 99
--- NOTE | 2024-07-18 21:10 | PC.NURSE ---
pt janak po water and crackers, resting
== END 2024-07-18 21:13 | disposition home or self-care (01) ==
LOC: ED 20:44
PROVIDERS: Emergency Provider Family Medicine
DX: O21.0 Mild hyperemesis gravidarum (principal); Z3A.01 Less than 8 weeks gestation of pregnancy
CPT/HCPCS: 96374; 99283; 99284; J2405; J7030

== ENCOUNTER 2024-07-20 15:50 | Outpatient (CLI) | payer OTHER, SELFPAY ==
--- NOTE | 2024-07-20 16:00 | CRLHL7_ITS ---
For Patients: As a result of the Cures Act, medical imaging exams and procedure reports are released immediately into your electronic medical record. You may view this report before your referring provider. If you have questions, please contact your health care provider. OB ULTRASOUND, 07/20/2024 INDICATION: Dating and viability. TECHNIQUE: Real time smith scale imaging of the fetus was performed. Transvaginal. LMP: 05/26/2024. DONALD by LMP: 03/02/2024. GA: 7 w, 6 d. Previous US: No. CRL: 1.0 cm. 7 w 1 d. DONALD: 03/07/2025. FHR: 144 BPM. Gestational sac: 2.4 cm. Appears within normal limits. Yolk sac: 3.5 mm. Appears within normal limits. Right ovary: Within normal limits. 4.7 x 2.2 x 2.7 cm. CL. Left ovary: Within normal limits. 2.7 x 1.2 x 1.9 cm. IMPRESSION: 1. Single living intrauterine measuring 7 weeks 1 day and sonographic due date 03/07/2025. 2. Inferior subchorionic hemorrhage measures 1.2 x 0.5 x 1.4 cm. 3. Simple right ovarian cyst measures 2.5 cm. Fletcher Smith M.D. Diagnostic Radiologist [email or web address] KEE/nickie JR/Dictated by: Fletcher Smith MD @ 07/21/2024 6:51:00 AM (Electronically Signed)
== END 2024-07-20 15:51 | disposition home or self-care (01) ==
LOC: US 15:51
PROVIDERS: Visit Provider Physician Assistant
DX: Z34.91 Encounter for supervision of normal pregnancy, unspecified, first trimester (principal); O20.9 Hemorrhage in early pregnancy, unspecified; Z3A.01 Less than 8 weeks gestation of pregnancy; O34.81 Maternal care for other abnormalities of pelvic organs, first trimester; N83.291 Other ovarian cyst, right side
CPT/HCPCS: 76817

== ENCOUNTER 2024-07-20 17:33 | Outpatient (CLI) | payer OTHER, SELFPAY ==
[2024-07-20 20:04] LABS: Chlamydia DNA Amplified* NOT DETECTED (No Detected); GC DNA Amplified* NOT DETECTED (No Detected)
== END 2024-07-20 17:34 | disposition home or self-care (01) ==
PROVIDERS: Visit Provider Physician Assistant
DX: Z34.01 Encounter for supervision of normal first pregnancy, first trimester (principal)
CPT/HCPCS: 83020; 83021; 85660; 86787; 87491; 87591

== ENCOUNTER 2024-08-21 14:26 | Outpatient (CLI) | payer OTHER, SELFPAY | END 2024-08-21 14:27 | disposition home or self-care (01) | LOC: NFLDREF 14:27 | PROVIDERS: Visit Provider Advanced Practice Midwife | DX: Z34.01 Encounter for supervision of normal first pregnancy, first trimester (principal) | CPT/HCPCS: 87086 ==

== ENCOUNTER 2024-10-19 07:00 | Emergency (ER) | payer OTHER, SELFPAY ==
--- OUTSIDE RECORDS SUMMARY | 2024-09-29 13:58 | XMS_ITS | Encounter Summary ---
Author Organization [facility] Address [address] [place] [address] Care Team Providers Care Educational Resource Coordinator Name Role Phone No Ref-Primary, Physician Primary Care Provider Reason for Referral * Diagnostic Imaging Ultrasound (Routine) - Pending Review Specialty Diagnoses / Procedures Referred By Contac t Referred To Contact Radiology. Diagnoses related condition, antepartum Procedures [facility] US Comprehensive Single Silvino Herrera APRN Robby [facility] [address] [place] [address] Phone: tel: fax: Referral ID Status Reason Start Date Expiration Date V isits Requested Visits Authorized [id number] Pending Review 08/27/2024 08/27/2025 1 1 Reason for Visit * Diagnostic Imaging Ultrasound (Routine) - Pending Review Specialty Diagnoses / Procedures Referred By Contac t Referred To Contact Radiology. Diagnoses related condition, antepartum Procedures [facility] US Comprehensive Single Silvino Herrera APRN [facility] [address] [place] [address] Phone: tel: fax: Referral ID Status Reason Start Date Expiration Date V isits Requested Visits Authorized [id number] Pending Review 08/27/2024 08/27/2025 1 1 Encounter Details Date Type Department Care Team (Latest Contact Info) Description 09/29/2024 1:58 PM CDT - 09/29/2024 11:59 PM CDT Hospital Encounter [facility] Maternal Medicine [facility] [address] [place] [address] Jos Sol MD [address] [facility] [address] [place] [address] related condition, antepartum Discharge Disposition: Home or Self Care Social History Tobacco Use Types Packs/Day Years Used Date Smoking Tobacco: Never Assessed Estimated Date of Delivery Comme nts Yes 03/02/2025 Based on last me nstrual period of 05/26/2024 Sex and Gender Information Value Date Recorded Sex Assigned at Not on file 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 Gender Identity Not on file Sexual Orientation Not on file documented as of this encounter Plan of Treatment Upcoming Encounters Date Type Department Care Team (Late st Contact Info) Description 10/26/2024 2:00 PM CDT Appointment [facility]aternal [facility] [address] [place] [address] Aditi Ballard MD [address] [place], [place] [phone] 10/26/2024 2:30 PM CDT Office Visit [facility] [address] [facility] [address] [place] [address] Aditi Ballard MD [address] [place], [place] [phone] documented as of this encounter Procedures Procedure Name Priority Date/Time Associated Diagnosis Comments [facility] US COMPREHENSIVE SINGLE Routine 09/29/2024 3:08 PM CDT related condition, antepartum documented in this encounter Results * [facility] US Comprehensive Single (09/29/2024 3:08 PM CDT) Anatomical Region Laterality Modality Ultrasound 09/29/2024 2:19 PM CDT Impressions 09/29/2024 3:17 PM CDT IMPRESSION ----- 1. Shah intrauterine at 18 0/7 weeks gestational age with BMI 34 kg/m2. 2. No anomalies commonly detected by ultrasound were identified in the detailed anatomic survey within the limits of ultrasound, however some views were suboptimal, as described above. 3. Growth parameters and estimated weight were consistent with established dating with EFW at the 16th percentile. 4. The amniotic fluid volume appeared normal. 5. On transabdominal imaging the cervix appears long and closed. Narrative 09/29/2024 3:17 PM CDT Comprehensive ----- Pat. Name: BRITT GIBSON Study Date: 09/29/2024 2:19pm Pat. NO: [id number] Referring MD: SILVINO HERRERA Site: Oral Surgery Assistant: Tomasa Reyes RDMS : 2005 Age: 19 ----- INDICATION ----- BMI 34 Tobacco and THC use in METHOD ----- Transabdominal ultrasound examination. View: Suboptimal view: limited by maternal body habitus. Suboptimal view: limited by position. ----- Shah . Number of fetuses: 1 DATING ----- Date Details Gest. age DONALD LMP 05/26/2024 18 w + 0 d 03/02/2025 Previous U/S 07/20/2024 GA, GA 7 w + 1 d 17 w + 2 d 03/07/2025 U/S 09/29/2024 based upon AC, BPD, Femur, HC 17 w + 3 d 03/06/2025 Assigned dating based on the LMP, selected on 09/29/2024 18 w + 0 d 03/02/2025 GENERAL EVALUATION ----- Cardiac activity present. FHR 151 bpm. movements: present. Presentation: cephalic Placenta: Posterior, No Previa, > 2 cm from internal os Umbilical cord: 3 vessel cord Amniotic fluid: Amount of AF: normal. MVP 3.8 cm BIOMETRY ----- BPD 37.8 mm 17w 4d Hadlock OFD 47.8 mm 16w 3d Nicolaides HC 137.3 mm 17w 1d Hadlock Cerebellum tr 17.8 mm 17w 6d Nicolaides Nuchal fold 2.5 mm AC 114.8 mm 17w 2d 24% Hadlock Femur 25.3 mm 17w 5d Hadlock Humerus 23.2 mm 17w 1d Amber Weight Calculation: EFW 194 g 17% Hadlock EFW (lb,oz) 0 lb 7 oz EFW by Hadlock ([id number]) Head / Face / Neck Biometry: Milk Pasteurizer 5.1 mm CM 3.1 mm Nasal bone 5.0 mm ANATOMY ----- The following structures appear normal: Head / Neck Cranium. Head size. Head shape. Lateral ventricles. Choroid plexus. Midline falx. Cerebellum. Cisterna magna. Parenchyma. Thalami. Vermis. Neck. Nuchal fold. Face Profile. Nose. Maxilla. Mandible. Orbits. Lens. Heart / Thorax RVOT view. LVOT view. 3-vessel view. 4-jukbif-kgsengc view. Situs. Bicaval view. Ductal arch view. Superior vena cava. Inferior vena cava. Cardiac position. Cardiac size. Cardiac rhythm. Right lung. Left lung. Diaphragm. Abdomen Abdom. wall. Cord insertion. Stomach. Kidneys. Bladder. Liver. Bowel. Genitals. Spine Cervical spine. Thoracic spine. Lumbar spine. Sacral spine. Extremities / Skeleton Arms. Right arm. Right hand. Left arm. Left hand. Legs. Right leg. Right foot. Left leg. Left foot. The following structures could not be adequately visualized: Head / Neck Cavum septi pellucidi. Face Lips. Heart / Thorax 4-chamber view: Suboptimal subcostal view. Aortic arch view. sex: male. MATERNAL STRUCTURES ----- Cervix Visualized Appearance: Appears Closed Approach - Transabdominal: Cervical length 34.5 mm Right Ovary Not visualized Left Ovary Visualized RECOMMENDATION ----- Permission was requested and granted from the patient to discuss the following topics: We discussed the findings on today's ultrasound with the patient. We reviewed the limitations of ultrasound to detect all structural abnormalities. Ultrasound will detect approximately 80-90% of all structural abnormalities. Limitations are for those not evident on scan such as spina bifida occulta or abnormalities that may develop over time. Return for growth scan and follow up of anatomy not seen today in 4 weeks. Patient is aware and understands why she has come for her ultrasound today and states that she feels that all of her questions have been answered to her satisfaction. Thank you for the opportunity to participate in the care of this patient. If you have questions regarding today's evaluation or if we can be of further service, please contact the [facility]. anomalies may be present but not detected* Procedure Note Jos Sol MD - 09/29/2024 Comprehensive ----- Pat. Name: BRITT GIBSON Study Date: 09/29/2024 2:19pm Pat. NO: [id number] Referring MD: SILVINO HERRERA Site: Oral Surgery Assistant: Tomasa Reyes RDMS : 2005 Age: 19 ----- INDICATION ----- BMI 34 Tobacco and THC use in METHOD ----- Transabdominal ultrasound examination. View: Suboptimal view: limited bymaternal body habitus. Suboptimal view: limited by position. ----- Shah . Number of fetuses: 1 DATING ----- DateDetailsGest. age DONALD LMP w + 0 d 03/02/2025 Previous U/S 07/20/2024 GA, GA7 w + 1 d17 w + 2 d 03/07/2025 U/S 09/29/2024ased upon AC, BPD, Femur, HC17 w + 3 d 03/06/2025 Assigned dating based on the LMP, selected on w + 0 d 03/02/2025 GENERAL EVALUATION ----- Cardiac activity present. FHR 151 bpm. movements: present.Presentation: cephalic Placenta: Posterior, No Previa, > 2 cm from internal os Umbilical cord: 3 vessel cord Amniotic fluid: Amount of AF: normal. MVP 3.8 cm BIOMETRY ----- BPD 37.8mm 17w 4dHadlock OFD 47.8mm 16w 3dNicolaides HC 137.3mm 17w 1dHadlock Cerebellum tr 17.8mm 17w 6dNicolaides Nuchal fold 2.5mm AC 114.8mm 17w 2d 24%Hadlock Femur 25.3mm 17w 5dHadlock Humerus 23.2mm 17w 1dJeanty Weight Calculation: EFW 194g 17%Hadlock EFW (lb,oz) 0 lb 7oz EFW by Hardy([id number]) Head / Face / Neck Biometry: Milk Pasteurizer 5.1mm CM 3.1mm Nasal bone 5.0mm ANATOMY ----- The following structures appear normal: Head / Neck Cranium. Head size. Head shape.Lateral ventricles. Choroid plexus. Midline falx. Cerebellum. Cisternamagna. Parenchyma. Thalami. Vermis. Neck. Nuchal fold. Face Profile. Nose. Maxilla. Mandible.Orbits. Lens. Heart / Thorax RVOT view. LVOT view. 3-vessel view.8-fywhay-wvgcwjj view. Situs. Bicaval view. Ductal arch view. Superiorvena cava. Inferior vena cava. Cardiac position. Cardiac size.Cardiac rhythm. Right lung. Left lung.Diaphragm. Abdomen Abdom. wall. Cord insertion. Stomach.Kidneys. Bladder. Liver. Bowel. Genitals. Spine Cervical spine. Thoracic spine.Lumbar spine. Sacral spine. Extremities / Skeleton Arms. Right arm. Right hand. Left arm.Left hand. Legs. Right leg. Right foot. Left leg. Left foot. The following structures could not be adequately visualized: Head / Neck Cavum septi pellucidi. Face Lips. Heart / Thorax 4-chamber view: Suboptimal subcostalview. Aortic arch view. sex: male. MATERNAL STRUCTURES ----- Cervix Visualized Appearance: Appears Closed Approach - Transabdominal:Cervical length 34.5 mm Right Ovary Not visualized Left Ovary Visualized RECOMMENDATION ----- Permission was requested and granted from the patient to discuss thefollowing topics: We discussed the findings on today's ultrasound with the patient. Wereviewed the limitations of ultrasound to detect all structuralabnormalities. Ultrasound will detect approximately 80-90% of all structural abnormalities. Limitationsare for those not evident on scan such as spina bifida occulta orabnormalities that may develop over time. Return for growth scan and follow up of anatomy not seen todayin 4 weeks. Patient is aware and understands why she has come for her ultrasound todayand states that she feels that all of her questions have been answered toher satisfaction. Thank you for the opportunity to participate in the care of this patient.If you have questions regarding today's evaluation or if we can be offurther service, please contact the [facility]. anomalies may be present but not detected* IMPRESSION ----- 1. Shah intrauterine at 18 0/7 weeks gestational age withBMI 34 kg/m2. 2. No anomalies commonly detected by ultrasound were identified inthe detailed anatomic survey within the limits of prenatalultrasound, however some views were suboptimal, as described above. 3. Growth parameters and estimated weight were consistent withestablished dating with EFW at the 16th percentile. 4. The amniotic fluid volume appeared normal. 5. On transabdominal imaging the cervix appears long and closed. us Silvino Herrera APRN, CNM Rudy [facility] ORDERABLES Edit ed Result - Final documented in this encounter Visit Diagnoses Diagnosis related condition, antepartum documented in this encounter Care Teams Educational Resource Coordinator Relationship Specialty Start Date End Date No Ref-Primary, Physician PCP - General 08/27/24 documented as of this encounter
--- OUTSIDE RECORDS SUMMARY | 2024-09-29 14:45 | XMS_ITS | Encounter Summary ---
Author Organization [facility] Address [address] [place] [address] Care Team Providers Care Chief General Pediatric [facility] Name Role Phone No Ref-Primary, Physician Primary Care Provider Reason for Referral * Diagnostic Imaging Ultrasound (Routine) - Pending Review Specialty Diagnoses / Procedures Referred By Sandy chamberlain Referred To Contact Radiology. Diagnoses Obesity affecting , antepartum, unspecified obesity type Procedures [facility] US Comprehensive Single F/U Jos Sol MD [address] [place] [address] Phone: tel: fax: Referral ID Status Reason Start Date Expiration Date V isits Requested Visits Authorized [id number] Pending Review 09/29/2024 09/29/2025 1 1 Reason for Visit * Reason Comments Ultrasound L2-BMI, Tobacco/THC use Encounter Details Date Type Department Care Team (Late st Contact Info) Description 09/29/2024 2:45 PM CDT Office Visit [facility] [place] [address] [facility] [address] [place] [address] Jos Sol MD [address] [place] [address] Obesity affecting , antepartum, unspecified obesity type (Primary Dx); Encounter for routine screening for malformation using ultrasound Social History Tobacco Use Types Packs/Day Years Used Date Smoking Tobacco: Never Assessed Estimated Date of Delivery Comme nts Yes 03/02/2025 Based on last me nstrual period of 05/26/2024 Sex and Gender Information Value Date Recorded Sex Assigned at Not on file 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 Jos Sol M.D. documented in this encounter Nursing Notes * Lauren Rubio, RN - 09/29/2024 2:45 PM CDT Carli presents to [facility] for level 2 ultrasound. Patient does not yet endorse movement, denies contractions, leaking of fluid, or bleeding. SBAR given to [facility] MD, see their note in Epic. documented in this encounter Plan of Treatment Upcoming Encounters Date Type Department Care Team (Late st Contact Info) Description 10/26/2024 2:00 PM CDT Appointment [facility] Maternal Medicine [facility] [address] [facility] [address] [place] [address] Aditi Ballard MD [address] [place] [phone] 10/26/2024 2:30 PM CDT Office Visit [facility] Maternal Medicine [facility] [address] [facility] [address] [place] [phone] Aditi Ballard MD [address] [place] [phone] Scheduled Orders Name Type Priority Associated Diagnoses Orde r Schedule [facility] US Comprehensive Single F/U Imaging Routine Obesity affecting , antepartum, unspecified obesity type Expected: 10/27/2024 (Approximate), Expires: 09/29/2025 documented as of this encounter Visit Diagnoses Diagnosis Obesity affecting , antepartum, unspecified obesity type- Primary Encounter for routine screening for malformation using ultrasound documented in this encounter Care Teams Chief General Pediatric Clinic Relationship Specialty Start Date End Date No Ref-Primary, Physician PCP - General 08/27/24 documented as of this encounter
--- OUTSIDE RECORDS SUMMARY | 2024-10-19 07:02 | XMS_ITS ---
Author Organization [facility] [employer] [facility] (ClinicalSummary Clone) Address Unknown Care Team Providers Care Field Service Poultry Technician Name Role Phone Unavailable Primary Care Physician Unavailab le Results * [UNITY] ANEUPLOIDY NIPT Performed by: [employer] Component Value Range Date Fraction 5.0% 08/18/2024 03 :12 am UT 22q11.2 Microdeletion LOW RISK <1 in 10,000 08/18/2024 03:12 am UT Sex Chromosome Aneuploidy NOT DETECTED 03:12 am UT Monosomy X LOW RISK <1 in 10,000 2024 03:12 am UT Trisomy 13 LOW RISK <1 in 10,000 2024 03:12 am UT Trisomy 18 LOW RISK <1 in 10,000 2024 03:12 am UT Trisomy 21 LOW RISK <1 in 10,000 2024 03:12 am UT Sex MALE 08/18/2024 03:1 2 am UT Gestation TORRES 08/19/19 03:12 am [facility] For detailed report, see PDF See PDF 08/18/2024 03:12 am UTC 08/18/2024 03:1 2 am [facility] Social History Observation Value Start Date End Date
--- OUTSIDE RECORDS SUMMARY | 2024-10-19 07:02 | XMS_ITS | Encounter Summary ---
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 Gender Identity Not on file Sexual Orientation Not on file documented as of this encounter Plan of Treatment Upcoming Encounters Date Type Department Care Team (Late st Contact Info) Description 10/26/2024 2:00 PM CDT Appointment [facility] Maternal Medicine [facility] [address] [facility] [address] [place] [address] Aditi Ballard MD [address] [place], [place] [address] [place], [place] [phone] 10/26/2024 2:30 PM CDT Office Visit [facility] Maternal Medicine [facility] [address] [facility] [address] [place] [phone] Aditi Ballard MD [address] [place], [place] [phone] documented as of this encounter Visit Diagnoses Not on filedocumented in this encounter Care Teams Space And Missile Operations Relationship Specialty Start Date End Date No Ref-Primary, Physician PCP - General 08/27/24 documented as of this encounter
--- OUTSIDE RECORDS SUMMARY | 2024-10-19 07:02 | XMS_ITS | Encounter Summary ---
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 Maternal Medicine [facility] [address] [facility] [address] [place] [address] Aditi Ballard MD [address] [place], [place] [address] [place], [place] [phone] 10/26/2024 2:30 PM CDT Office Visit [facility] Maternal Medicine [facility] [address] [facility] [address] [place] [phone] Aditi Ballard MD [address] [place], [place] [phone] documented as of this encounter Visit Diagnoses Not on filedocumented in this encounter Care Teams Digital Data Analyst Relationship Specialty Start Date End Date No Ref-Primary, Physician PCP - General 08/27/24 documented as of this encounter
--- OUTSIDE RECORDS SUMMARY | 2024-10-19 07:03 | XMS_ITS | Encounter Summary ---
Author Organization [facility] Address [address] [place] [address] Care Team Providers Care Ballast Inspector Name Role Phone No Ref-Primary, Physician Primary Care Provider Reason for Visit * Reason Comments Ultrasound L2 - BMI 34.6, daily vape/THC use Encounter Details Date Type Department Care Team (Late st Contact Info) Description 09/22/2024 PRE VISIT [facility] Maternal Medicine [facility] [address] [place] [address] Nina Gutierrez RN Ultrasound (L2 - BMI 34.6, daily vape/THC use) Social History Tobacco Use Types Packs/Day Years Used Date Smoking Tobacco: Never Assessed Estimated Date of Delivery Comme nts Yes 03/02/2025 Based on last me nstrual period of 05/26/2024 Sex and Gender Information Value Date Recorded Sex Assigned at Not on file 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 Gender Identity Not on file Sexual Orientation Not on file documented as of this encounter Plan of Treatment Upcoming Encounters Date Type Department Care Team (Late st Contact Info) Description 10/26/2024 2:00 PM CDT Appointment [facility] Maternal Medicine [facility] [address] [place] [address] Aditi Ballard MD [address] [place], [place] [phone] 10/26/2024 2:30 PM CDT Office Visit [facility] [address] [facility] [address] [place] [address] Aditi Ballard MD [address] [place] [address] documented as of this encounter Visit Diagnoses Not on filedocumented in this encounter Care Teams Ballast Inspector Relationship Specialty Start Date End Date No Ref-Primary, Physician PCP - General 08/27/24 documented as of this encounter
--- OUTSIDE RECORDS SUMMARY | 2024-10-19 07:03 | XMS_ITS | Clinical Summary ---
Author Organization [facility] Address [address] [place] [id number] Care Team Providers Care Petroleum Transport Driver Name Role Phone No Ref-Primary, Physician Primary Care Provider Encounters Date Type Department Care Team Description 09/29/2024 2:45 PM CDT Office Visit [facility] [address] [place] [phone] Jos Sol MD Obesity affecting , antepartum, unspecified obesity type (Primary Dx); Encounter for routine screening for malformation using ultrasound 09/29/2024 1:58 PM CDT - 09/29/2024 11:59 PM CDT Hospital Encounter [facility] [address] [place] [phone] Jos Sol MD related condition, antepartum Discharge Disposition: Home or Self Care 09/29/2024 Travel 09/24/2024 Travel 09/22/2024 PRE VISIT [facility] [address] [facility] [address] [place] [phone] Nina Gutierrez RN Ultrasound (L2 - BMI 34.6, daily vape/THC use) 08/27/2024 Medical Correspondence [facility] Information [facility] [address] [facility] [address] [place] [address] Scan, Non-Provider 08/27/2024 Transcribe Orders [facility] [address] [place] [phone] Brittany Herrera APRN CNM related condition, antepartum (Primary Dx) 08/27/2024 Transcribe Orders [facility] [address] [place] [phone] Brittany Herrera APRN CNM related condition, antepartum (Primary Dx) from Last 3 Months Social History Tobacco Use Types Packs/Day Years Used Date Smoking Tobacco: Never Assessed Estimated Date of Delivery Comme nts Yes 03/02/2025 Based on last me nstrual period of 05/26/2024 Sex and Gender Information Value Date Recorded Sex Assigned at Not on file Legal Sex Female 4:48 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 Gender Identity Not on file Sexual Orientation Not on file Plan of Treatment Upcoming Encounters Date Type Department Care Team (Late st Contact Info) Description 10/26/2024 2:00 PM CDT Appointment [facility] [address] [facility] [address] [place] [phone] Aditi Ballard MD [address] [place] [phone] 10/26/2024 2:30 PM CDT Office Visit [facility] [address] [facility] [address] [place] [phone] Aditi Ballard MD [address] [place] [phone] Health Maintenance Due Date Last Done Comments ADVANCE CARE PLANNING 2004 ANNUAL REVIEW OF HM ORDERS 2004 CHLAMYDIA SCREENING 2004 YEARLY PREVENTIVE VISIT 06/06/2007 HIV SCREENING 06/06/2019 MENINGITIS B VACCINE (1 of 2 - Standard) 2020 HEPATITIS C SCREENING 2022 PHQ-2 (once per calendar year) 2024 MATERNAL SCREENING DISCUSSION 08/04/2024 COVID-19 VACCINE ( - 2024- season) 2024 12/19/2020, 11/25/2020 INFLUENZA VACCINE (#1) 2024 , 12/24/2014, 11/09/2013, Additional history exists OBGCT (OB) 11/10/2024 RSV VACCINE (1 - Risk 1-dose series) 01/05/2025 DTAP/TDAP/TD VACCINE (7 - Td or Tdap) 05/25/2026 05/25/2016, 06/10/2009, 09/13/2005, Additional history exists ZOSTER VACCINE (1 of 2) 2054 HEPATITIS B VACCINE Completed 2004, 2004, 2004, Additional history exists PNEUMOCOCCAL VACCINE: PEDIATRICS (0 to 5 YEARS) AND AT-RISK PATIENTS (6 to 49 YEARS) Aged Out 06/10/2009, 2004, 2004, Additional history exists No longer eligible based on patient's age to complete this topic HPV VACCINE Completed 12/12/2016, 05/25/2016 MENINGITIS VACCINE Completed 11/30/2020, 05/25/2016 Procedures Procedure Name Priority Date/Time Associated Diagnosis Comments [facility] US COMPREHENSIVE SINGLE Routine 09/29/2024 3:08 PM CDT related condition, antepartum from Last 3 Months Results * [facility] US Comprehensive Single (09/29/2024 3:08 PM [...] GIBSON Study Date: 09/29/2024 2:19pm Pat. NO: [id number] Referring MD: BRITTANY HERRERA Site: Professor Of Business Administration: Tomasa Reyes RDMS : 2005 Age: 19 [...] 0 lb 7 oz EFW by Hadlock ([id number]) Head / Face / Neck Biometry: Community Engagement Manager 5.1 mm CM 3.1 mm Nasal bone 5.0 mm ANATOMY ----- The following structures appear normal: Head / Neck Cranium. Head size. Head shape. Lateral ventricles. Choroid plexus. Midline falx. Cerebellum. Cisterna magna. Parenchyma. Thalami. Vermis. Neck. Nuchal fold. Face Profile. Nose. Maxilla. Mandible. Orbits. Lens. Heart / Thorax RVOT view. LVOT view. 3-vessel view. 6-ycacop-gayhpom view. Situs. Bicaval view. Ductal arch view. [...] GIBSON Study Date: 09/29/2024 2:19pm Pat. NO: [id number] Referring MD: BRITTANY HERRERA Site: Professor Of Business Administration: Tomasa Reyes RDMS : 2005 Age: 19 [...] EFW (lb,oz) 0 lb 7oz EFW by Hadlock([id number]) Head / Face / Neck Biometry: Community Engagement Manager 5.1mm CM 3.1mm Nasal bone 5.0mm ANATOMY ----- The following structures appear normal: Head / Neck Cranium. Head size. Head shape.Lateral ventricles. Choroid plexus. Midline falx. Cerebellum. Cisternamagna. Parenchyma. Thalami. Vermis. Neck. Nuchal fold. Face Profile. Nose. Maxilla. Mandible.Orbits. Lens. Heart / Thorax RVOT view. LVOT view. 3-vessel view.5-nedccz-bizqrkc view. Situs. Bicaval view. Ductal arch view. [...] imaging the cervix appears long and closed. [facility] Edit ed Result - Final from Last 3 Months Insurance MEDICA CHOICE [employer] CHO[employer] Care Teams Petroleum Transport Driver Relationship Specialty Start Date End Date No Ref-Primary, Physician PCP - General 08/27/24
--- OUTSIDE RECORDS SUMMARY | 2024-10-19 07:03 | XMS_ITS ---
Author Organization [facility] Source Produ ction (ClinicalSummary Clone) Address Unknown Care Team Providers Care Fire Watchman Name Role Phone Unavailable Primary Care Physician Unavailab le Results * [UNITY] CARRIER SCREEN Performed by: [employer] Component Value Range Date Sickle Cell Disease/Beta-Thalassemia/Hemo globinopathies carrier screen NEGATIVE 08/20/2024 01:39 am [facility] Alpha-Thalassemia carrier screen NEGATIVE 08/20/2024 01:39 am [place] Cystic Fibrosis carrier screen NEGATIVE 08/20/2024 01:39 am [place] Spinal Muscular Atrophy carrier screen NEGATIVE 2 SMN1 copies, SNP not present 08/20/2024 01:39 am [place] For detailed report, see PDF See PDF 08/20/2024 01:39 am [place] 08/20/2024 01:3 9 am [facility] Social History Observation Value Start Date End Date
[2024-10-19 07:11] VITALS: BP 130/76; PULSE 81; RESP 18; TEMP 36.7; O2SAT 100; BMI 36.3
[2024-10-19] MEDS: METOCLOPRAMIDE HCL 10 MG in 0.9 % SODIUM CHLORIDE 100 ml 100 ML 306 MG IVPB (07:50)
--- NOTE | 2024-10-19 07:54 | ED_ITS ---
HPI - General Adult General Chief complaint: Headache/Migraine <Millie Connors MD - Last Filed: 10/20/24 23:59> Stated complaint: migraine/20 weeks <Millie Connors MD - Last Filed: 10/20/24 23:59> Time Seen by Provider: 10/19/24 07:18 <Millie Connors MD - Last Filed: 10/20/24 23:59> Source: patient <Millie Connors MD - Last Filed: 10/20/24 23:59> Mode of arrival: ambulatory <Millie Connors MD - Last Filed: 10/20/24 23:59> Limitations: no limitations <Millie Connors MD - Last Filed: 10/20/24 23:59> History of Present Illness HPI narrative: 19-year-old female presents to the emergency department for evaluation of migraine headache. She does not have a history of migraine headaches prior to but reports that she has had 4 of them during the course of this , it sounds like they have all been within the last 10 weeks or so. She reports that she has been evaluated 4 times in the ED and care outside of our facility. I have not yet reviewed outside records. She states that this headache is in the typical starting location for her, the left mandaen. There was no injury or trauma. She is not anticoagulated. She is not experiencing elevated blood pressures. There are no neurological changes. She is having some nausea and photophobia with it but no other focal neurological changes. She is not experiencing other systemic symptoms like neck pain, fevers. She is having some right lower quadrant brief sharp tenderness with movement that sounds suspicious sleeve like round ligament pain but no persistent issues. She has not yet felt any movement in this but does not notice any signs of complication today. She tried taking Tylenol 1000 mg last night around 9:00 p.m. which is about 10 hours prior to arrival with some very mild temporary improvement but the migraine is worsening again this morning. No known drug allergies. She does have a history of anxiety and takes sertraline for this. It looks like it is 50 mg based on her outpatient medication review. She also reports that she has tried sumatriptan in the past with limited improvement. She reports that she has tolerated Reglan without any type of dystonic reaction. ROS is notable for the headache as described, otherwise benign times 12 systems. <Millie Connors MD - Last Filed: 10/20/24 23:59> Related Data Home medications: Home Medications ?Medication ?Instructions ?Recorded ?Confirmed lactobacillus comb no.10 20 20,000 mmu cells PO DAILY 07/18/24 10/19/24 billion cell capsule (Probiotic) vit no.95-ferrous 1 tab PO DAILY 07/18/2410/05 fumarate 28 mg-folic acid 800 mcg tablet () magnesium 200 mg tablet 200 mg PO QDAY 09/18/2410/05 Previous Rx's ?Medication ?Instructions ?Recorded sertraline 50 mg tablet 50 mg PO QDAY #90 tabs 07/20 metoclopramide HCl 5 mg tablet 5 - 10 mg (1 - 2 x 5 mg ) PO Q4-6H 08/10/24 (Reglan) PRN nausea and vomiting #90 tabs sumatriptan succinate 50 mg tablet 50 mg PO ONCE #20 t abs 09/23/24 <Millie Connors MD - Last Filed: 10/20/24 23:59> Allergies/adverse reactions: Allergies Allergy/AdvReac Type Severity Reaction Status Date / Time amoxicillin Allergy Mild Verified 10/19/24 07:16 Penicillins Allergy Mild Verified 10/19/24 07:16 <Millie Connors MD - Last Filed: 10/20/24 23:59> [facility] Surgical History: Surgical History History of tonsillectomy ?Z90.89 - Acquired absence of other organs (ICD-10) History of hip surgery ?Z98.890 - Other specified postprocedural states (ICD-10) <Millie Connors MD - Last Filed: 10/20/24 23:59> Family History: Family History Mother Thyroid disease Anxiety Paternal Grandfather Diabetes Father Anxiety <Millie Connors MD - Last Filed: 10/20/24 23:59> Social History: Social History Narrative: SOCIAL HISTORY: 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 Marital status: Significant other. Scientologist/cultural needs: no. Chemical or radiation exposure: no. Pre- tobacco use: Vape daily. Pre- alcohol use: no. Current tobacco use: Vape daily. Current alcohol use: no. Recreational drug use: 1 to use daily for nausea. Dietary restrictions: no. Blood transfusion acceptable in an emergency: yes. PSYCHOSOCIAL HISTORY: History of depression or currently depressed: History of depression. Current or past physical, emotional, or sexual mistreatment: Denies. Problems that will make it hard to make it to appointments: Denies. What is your current living situation?: I presently have a place to live Problems where you live: no known problems In the past 12 months, utilities in danger of being shut off: no In past 12 months, lack of transportation kept you from medical appts, meetings, work, or getting things needed for daily living: no In the past 12 mos, have been you worried that your food would run out before you had money to buy more?: never true In the past 12 mos, the food you bought just didn't last and you didn't have money to buy more?: never true Smoking Status: Unknown if ever smoked How often does anyone, including family, friends and others, physically hurt you : never How often does anyone, including family, friends and others, insult or talk down to you: never How often does anyone, including family, friends and others, threaten you with harm: never How often does anyone, including family, friends and others, scream or curse at you: never service: No <Millie Connors MD - Last Filed: 10/20/24 23:59> Exam Const: Vital Signs, click to edit/add: Vital Signs - 24 hr 10/19/24 07:11 10/19/24 09:00 Temperature 98.1 F Pulse Rate [Right Pulse Oximeter] 81 83 Respiratory Rate 18 Blood Pressure [Ri ght Upper Arm] 130/76 Pulse Oximetry 100 98 Oxygen Delivery Me thod Room Air Room Air <Millie Connors MD - Last Filed: 10/20/24 23:59> Vital Signs, click to edit/add: Vital Signs - 24 hr 10/19/24 07:11 10/19/24 09:00 Temperature 98.1 F Pulse Rate [Right Pulse Oximeter] 81 83 Respiratory Rate 18 Blood Pressure [Ri ght Upper Arm] 130/76 Pulse Oximetry 100 98 Oxygen Delivery Me thod Room Air Room Air <Cindi Barraza MD - Last Filed: 10/19/24 09:17> Documenting provider has reviewed patient's vital signs: yes <Millie Connors MD - Last Filed: 10/20/24 23:59> Common normals: no apparent distress and alert <Millie Connors MD - Last Filed: 10/20/24 23:59> General appearance: cooperative and well kempt <Millie Connors MD - Last Filed: 10/20/24 23:59> HENMT: Common normals: normocephalic, moist oral mucous membranes and oropharynx normal <Millie Connors MD - Last Filed: 10/20/24 23:59> Head and scalp: normocephalic <Millie Connors MD - Last Filed: 10/20/24 23:59> Face and sinus: normal facial exam <Millie Connors MD - Last Filed: 10/20/24 23:59> Mouth: oral and palatal mucosa normal <MD Jayy Marcus Last Filed: 10/20/24 23:59> Throat: posterior oropharynx normal <Millie Connors MD - Last Filed: 10/20/24 23:59> Eye: Common normals: PERRL, EOMs intact bilaterally and conjunctivae normal <MD Jayy Marcus Last Filed: 10/20/24 23:59> General eye: normal appearance of both eyes <MD Jayy Marcus Last Filed: 10/20/24 23:59> Conjunctiva: conjunctiva(e) normal <MD Jayy Marcus Last Filed: 10/20/24 23:59> Pupil: PERRL <Millie Connors MD - Last Filed: 10/20/24 23:59> Neck & C-Spine: Common normals: full ROM and no lymphadenopathy <MD Jayy Marcus Last Filed: 10/20/24 23:59> General: normal visual inspection <MD Jayy Marcus Last Filed: 10/20/24 23:59> Resp: Common normals: normal respiratory effort, no use of accessory muscles and clear to auscultation bilaterally <MD Jayy Mracus Last Filed: 10/20/24 23:59> Effort & inspection: able to speak in complete sentences <MD Jayy Marcus Last Filed: 10/20/24 23:59> Auscultation: clear to auscultation bilaterally <MD Jayy Marcus Last Filed: 10/20/24 23:59> Cardio: Common normals: regular rate, regular rhythm, S1 normal heart sound, S2 normal heart sound and no murmurs <MD Jayy Marcus Last Filed: 10/20/24 23:59> Rate: regular rate <MD Jayy Marcus Last Filed: 10/20/24 23:59> Rhythm: regular rhythm <MD Jayy Marcus Last Filed: 10/20/24 23:59> Heart sounds: S1 normal and S2 normal <MD Jayy Marcus Last Filed: 10/20/24 23:59> GI: Common normals: Normal to inspection, nondistended, normoactive bowel sounds present and soft to palpation <MD Jayy Marcus Last Filed: 10/20/24 23:59> Palpation: soft <MD Jayy Marcus Last Filed: 10/20/24 23:59> Other: Fundal height consistent with reported dates. Does not seem tender. <MD Jayy Marcus Last Filed: 10/20/24 23:59> Extremity: Common normals: normal to inspection and no pedal edema <MD Jayy Marcus Last Filed: 10/20/24 23:59> Neuro: Common normals: moves all extremities <MD Jayy Marcus Last Filed: 10/20/24 23:59> Sensorium/orientation: alert <Millie Connors MD - Last Filed: 10/20/24 23:59> Speech: speech normal <Millie Connors MD - Last Filed: 10/20/24 23:59> Psych: Appearance: well kempt <Millie Connors MD - Last Filed: 10/20/24 23:59> Attitude: engaged <Millie Connors MD - Last Filed: 10/20/24 23:59> Activity/motor behavior: appropriate eye contact <Millie Connors MD - Last Filed: 10/20/24 23:59> Insight: insight good <Millie Connors MD - Last Filed: 10/20/24 23:59> Judgement: judgment good <MD Jayy Marcus Last Filed: 10/20/24 23:59> Skin: Common normals: no rashes or lesions noted <Millie Connors MD - Last Filed: 10/20/24 23:59> General skin exam: no rashes or lesions noted <Millie Connors MD - Last Filed: 10/20/24 23:59> Course Course ED Course: 19-year-old female with a history migraines in with features consistent with her previous episodes. On initial exam there is no evidence to suggest intracranial hemorrhage, preeclampsia, acute neurological disorder, encephalitis, meningitis or other more alarming condition. Does seem migraine or tension headache related. Patient has tolerated Reglan in the past with no difficulty. She has tried all of the safe agents in at home already. I recommend IV placement, 1 L of normal saline, 12.5 mg of Benadryl, 4 mg of dexamethasone, 10 mg of Reglan and 400 mg of IV Tylenol x1. I set expectations with the patient that this may not completely relieve her migraine but the steroid does also dramatically improved the chance that the headache will not rebound within the next 3 days. Stress that these are not perfect in but these are medicines that have all been deemed safe. Will hand over care to incoming day shift provider. <Millie Connors MD - Last Filed: 10/20/24 23:59> Vital Signs Vital signs: Initial Vital Signs Temperature 98.1 F 10/19/24 07:11 Temperature Source Temporal Artery Scan 10/19/24 07:11 Pulse Rate 81 10/19/24 07:11 Pulse Rhythm Regular 10/19/24 07:11 Pulse Strength 3+ Normal 10/19/24 07:11 Respiratory Rate 18 10/19/24 07:11 Blood Pressure 130/76 10/19/24 07:11 Blood Pressure Mean 94 10/19/24 07:11 Blood Pressure Position Sitting 10/19/24 07:11 Pulse Oximetry 100 10/19/24 07:11 Oxygen Delivery Method Room Air 10/19/24 07:11 Vital Signs Temperature 98.1 F 10/19/24 07:11 Pulse Rate 81 10/19/24 07:11 Respiratory Rate 18 10/19/24 07:11 Blood Pressure 130/76 10/19/24 07:11 Pulse Oximetry 100 10/19/24 07:11 Oxygen Delivery Method Room Air 10/19/24 07:11 Temperature 98.1 F 10/19/24 07:11 Pulse Rate 83 10/19/24 09:00 Respiratory Rate 18 10/19/24 07:11 Blood Pressure 130/76 10/19/24 07:11 Pulse Oximetry 98 10/19/24 09:00 Oxygen Delivery Method Room Air 10/19/24 09:00 <Millie Connors MD - Last Filed: 10/20/24 23:59> Initial Vital Signs Temperature 98.1 F 10/19/24 07:11 Temperature Source Temporal Artery Scan 10/19/24 07:11 Pulse Rate 81 10/19/24 07:11 Pulse Rhythm Regular 10/19/24 07:11 Pulse Strength 3+ Normal 10/19/24 07:11 Respiratory Rate 18 10/19/24 07:11 Blood Pressure 130/76 10/19/24 07:11 Blood Pressure Mean 94 10/19/24 07:11 Blood Pressure Position Sitting 10/19/24 07:11 Pulse Oximetry 100 10/19/24 07:11 Oxygen Delivery Method Room Air 10/19/24 07:11 Vital Signs Temperature 98.1 F 10/19/24 07:11 Pulse Rate 81 10/19/24 07:11 Respiratory Rate 18 10/19/24 07:11 Blood Pressure 130/76 10/19/24 07:11 Pulse Oximetry 100 10/19/24 07:11 Oxygen Delivery Method Room Air 10/19/24 07:11 Temperature 98.1 F 10/19/24 07:11 Pulse Rate 83 10/19/24 09:00 Respiratory Rate 18 10/19/24 07:11 Blood Pressure 130/76 10/19/24 07:11 Pulse Oximetry 98 10/19/24 09:00 Oxygen Delivery Method Room Air 10/19/24 09:00 <Cindi Barraza MD - Last Filed: 10/19/24 09:17> Medications Administered Medications: Discontinued Medications Generic Name Dose Route Start Last Admin Trade Name Freq PRN Reason Stop Dose Admin Dexamethasone 4 mg 10/19/24 07:30 10/19/24 07:46 Dexamethasone 4 Mg/Ml Vial IVP 10/19/24 07:31 4 mg ONCE ONE Administration Diphenhydramine HCl 12.5 mg 10/19/24 07:30 10/19/24 07:51 Diphenhydramine 50 Mg/Ml Inj IVP 10/19/24 07:31 12.5 mg ONCE ONE Administration Sodium Chloride 1,000 mls @ 1,000 mls/hr 10/19/24 07:30 10/19/24 08:43 0.9 % Sodium Chloride 1000 Ml IV 10/19/24 08:29 Infused .Q1H DAVIS Infusion Metoclopramide HCl 10 mg/ 102 mls @ 306 mls/hr 10/19/24 07:30 10/19/24 08:20 Sodium Chloride IVPB 10/19/24 07:31 Infused ONCE ONE Infusion Acetaminophen 1,000 mg in 100 mls @ 400 mls/hr 10/19/24 07:30 10/19/24 08:20 Acetaminophen Inj IVPB 10/19/24 07:44 Infused ONCE ONE Infusion <Millie Connors MD - Last Filed: 10/20/24 23:59> Discontinued Medications Generic Name Dose Route Start Last Admin Trade Name Freq PRN Reason Stop Dose Admin Dexamethasone 4 mg 10/19/24 07:30 10/19/24 07:46 Dexamethasone 4 Mg/Ml Vial IVP 10/19/24 07:31 4 mg ONCE ONE Administration Diphenhydramine HCl 12.5 mg 10/19/24 07:30 10/19/24 07:51 Diphenhydramine 50 Mg/Ml Inj IVP 10/19/24 07:31 12.5 mg ONCE ONE Administration Sodium Chloride 1,000 mls @ 1,000 mls/hr 10/19/24 07:30 10/19/24 08:43 0.9 % Sodium Chloride 1000 Ml IV 10/19/24 08:29 Infused .Q1H DAVIS Infusion Metoclopramide HCl 10 mg/ 102 mls @ 306 mls/hr 10/19/24 07:30 10/19/24 08:20 Sodium Chloride IVPB 10/19/24 07:31 Infused ONCE ONE Infusion Acetaminophen 1,000 mg in 100 mls @ 400 mls/hr 10/19/24 07:30 10/19/24 08:20 Acetaminophen Inj IVPB 10/19/24 07:44 Infused ONCE ONE Infusion <Cindi Barraza MD - Last Filed: 10/19/24 09:17> Medical Decision Making MDM Narrative Medical decision making narrative: This patient is signed out to me by my colleague Dr. Connors. Patient has requested to go home if she is feeling much better. I do talk to her and her significant other. She is alert oriented. States that she is feeling much better. Guidance from my colleague was to allow her to go home if she was improved. She is discharged. <Cindi Barraza MD - Last Filed: 10/19/24 09:17> Discharge Plan Discharge Clinical Impression: H/O migraine during <Millie Connors MD - Last Filed: 10/20/24 23:59> Patient Disposition: Home w/ Parent or Adult <Millie Connors MD - Last Filed: 10/20/24 23:59> Instructions: Acute Headache (DC) <Millie Connors MD - Last Filed: 10/20/24 23:59> Additional Instructions: As we discussed, there do not seem to be any dangerous features of stroke, brain bleeding or other abnormality detected on your exam today. I am sorry that you keep having these types of headaches. You are doing things right in terms of taking Tylenol to help reduce the headache when it comes. I would recommend that you talk to your obstetrical provider about using Reglan nightly as a preventative measure. This can be very beneficial for some women. I do no t think that your other medications are a factor. If you have seizures, loss of consciousness, focal neurological changes, I would want you to come back to the emergency room right away. Otherwise, please follow-up with your primary care doctor, teasel setter or obstetrical team by phone later today and then in the office this week to discuss the next steps in management. <Millie Connors MD - Last Filed: 10/20/24 23:59> Activity Level: Activity as Tolerated <Millie Connors MD - Last Filed: 10/20/24 23:59> Activity as Tolerated <Cindi Barraza MD - Last Filed: 10/19/24 09:17> Discharge Diet: Regular <Millie Connors MD - Last Filed: 10/20/24 23:59> Regular <Cindi Barraza MD - Last Filed: 10/19/24 09:17> Prescriptions: No Action sertraline 50 mg tablet 50 mg PO QDAY Qty: 90 0RF Rx Instructions: 25mg daily x 1 week, then 50mg daily magnesium 200 mg tablet 200 mg PO QDAY PNV no.95-ferrous fumarate-FA [] 28 mg iron- 800 mcg tablet 1 tab PO DAILY Probiotic 20 billion cell capsule 20,000 mmu cells PO DAILY Rx Instructions: administer with a meal metoclopramide HCl [Reglan] 5 mg tablet 5 - 10 mg PO Q4-6H PRN (Reason: nausea and vomiting) Qty: 90 1RF sumatriptan succinate 50 mg tablet 50 mg PO ONCE Qty: 20 0RF <Millie Connors MD - Last Filed: 10/20/24 23:59> Follow Up/Referrals: Provider,Not a Local [Primary Care Provider, Family Practice] <Millie Connors MD - Last Filed: 10/20/24 23:59> Stand Alone Forms: MyHealth Info Instructions <Millie Connors MD - Last Filed: 10/20/24 23:59>
[2024-10-19] MEDS: ACETAMINOPHEN INJ 1,000 MG/100 ML VIAL 400 MG IVPB (08:01)
[2024-10-19 09:00] VITALS: PULSE 83; O2SAT 98
== END 2024-10-19 09:24 | disposition home or self-care (01) ==
PROVIDERS: Emergency Provider Family Medicine
DX: O26.892 Other specified pregnancy related conditions, second trimester (principal); G43.909 Migraine, unspecified, not intractable, without status migrainosus; Z3A.20 20 weeks gestation of pregnancy
CPT/HCPCS: 96365; 96368; 96375; 99283; 99284; J0131; J1100; J1200; J2765; J7030

== ENCOUNTER 2024-12-02 14:25 | Outpatient (CLI) | payer OTHER, SELFPAY ==
[2024-12-02 14:40] VITALS: PULSE 99; O2SAT 100
[2024-12-02 14:42] VITALS: TEMP 36.9
[2024-12-02 14:43] VITALS: BP 136/80; PULSE 102
[2024-12-02 14:45] VITALS: PULSE 105; O2SAT 100
[2024-12-02 14:48] VITALS: BP 135/76; PULSE 99
[2024-12-02 15:34] LABS: Appearance Urine Clear (Clear)
[2024-12-02 15:41] LABS: Cannabinoid Screen Urine POSITIVE (Negative); Methamphetamines Screen Urine Negative (Negative); Tricyclic Antidepressant Urine Negative (Negative)
--- NOTE | 2024-12-02 16:47 | PC.OBNST ---
NST Note NST Note Start: 12/02/24 14:34 Freq: ONCE Status: Discharge Protocol: Document 12/02/24 16:44 RESTORATIONISM (Rec: 12/02/24 16:45 RESTORATIONISM No Response) NST Note 1 Para (# of births) 0 EDC 03/02/25 Gestational Age In 27 Weeks & 1 Days Weeks & Days Patient Presented Pain with Complaint(s) of If Pain, describe lower left back, dull achy, constant location Reactive Yes Appropriate for Yes Gestational Age GEORGE Hidalgo Date 12/02/24 Reactive Yes Appropriate for Yes Gestational Age GEORGE Lucero Date 12/02/24 OB NST charge Yes Complete NST Note Yes via Write Note The provider's electronic signature indicates the NST is reactive/appropriate for gestational age. *Note to provider: If an addendum is required, open the patient's chart and click on the note under the Nurse/Allied Health tab.
== END 2024-12-02 16:20 | disposition home or self-care (01) ==
LOC: OB OUT 14:29 → OB 14:30
PROVIDERS: Visit Provider Advanced Practice Midwife
DX: O26.892 Other specified pregnancy related conditions, second trimester (principal); M54.9 Dorsalgia, unspecified; Z3A.27 27 weeks gestation of pregnancy
CPT/HCPCS: 59025; 80306; 80349; 81003; 87086; G0463

== ENCOUNTER 2024-12-18 12:48 | Outpatient (CLI) | payer OTHER, SELFPAY ==
--- NOTE | 2024-12-18 13:00 | CRLHL7_ITS ---
For Patients: As a result of the Cures Act, medical imaging exams and procedure reports are released immediately into your electronic medical record. You may view this report before your referring provider. If you have questions, please contact your health care provider. DONALD by LMP: 03/02/2025. GA: 29w, 3d. INDICATION: Growth. Tobacco use. CERVIX: Not visualized. POSITIONING: Vertex. AMNIOTIC FLUID: 5.2 cm SDP. PLACENTA: Technique: Transabdominal. PLACENTA POSITION: Posterior. DOPPLER: heart rate: 154 bpm. BIOMETRY: BPD: 7 cm. 28w, 0d, 7 percent. HC: 26.3 cm. 28w, 5d, 5 percent. AC: 24.3 cm. 28w, 4d, 19 percent. FL: 5.6 cm. 29w, 3d, 33 percent. FL/AC ratio: 23.01 percent. HC/AC ratio: 1.09. EFW: 1283 g. Weight: 2 lbs, 13 oz. age by this US: 28w, 5d. DONALD by this US: 03/07/2025. Percentile by DONALD: 17.6 percent. IMPRESSION: 1. Sonographic gestational age 28 weeks 5 days and sonographic due date 03/07/2025. Good correlation with dates. Normal interval growth. 2. Estimated weight 18th percentile. Abdominal circumference 19th percentile. 3. Biparietal diameter 7th percentile. Head circumference 5th percentile. Fletcher Smith M.D. Diagnostic Radiologist [email or web address] bM/Dictated by: Fletcher Smith MD @ 12/18/2024 2:25:00 PM (Electronically Signed)
== END 2024-12-18 12:49 | disposition home or self-care (01) ==
LOC: US 12:48
PROVIDERS: Visit Provider Advanced Practice Midwife
DX: O99.333 Smoking (tobacco) complicating pregnancy, third trimester (principal); Z3A.29 29 weeks gestation of pregnancy
CPT/HCPCS: 76815; 86592

== ENCOUNTER 2025-01-15 12:20 | Outpatient (CLI) | payer OTHER, SELFPAY ==
--- NOTE | 2025-01-15 12:30 | CRLHL7_ITS ---
For Patients: As a result of the Cures Act, medical imaging exams and procedure reports are released immediately into your electronic medical record. You may view this report before your referring provider. If you have questions, please contact your health care provider. OB ULTRASOUND DONALD by LMP or US: 03/02/2025. GA: 33 w, 3 d. Single. Comparison: 12/18/2024, 10/26/2024, 09/29/2024. INDICATION: History of tobacco/THC use. TECHNIQUE: Real time grayscale imaging of the fetus was performed. Transabdominal. CERVIX: Not visualized. POSITIONING: Vertex. AMNIOTIC FLUID: 5.3 cm. SDP (N: greater than 2 x 1 cm) PLACENTA: Technique: Transabdominal. PLACENTA POSITION: Posterior. DOPPLER: heart rate: 139 bpm. Umbilical artery: 3.5 S/D. BIOMETRY: BPD: 8.3 cm. 33 w, 1 d, 37.3%. HC: 30.2 cm. 33 w, 4 d, 16.9%. AC: 27.8 cm. 31 w, 6 d, 11.8%. FL: 6.0 cm. 31 w, 2 d, 3.2%. FL/AC ratio: 21.63%. HC/AC ratio: 1.09. EFW: 1870g. Weight: 4 lbs., 2 oz. age by this US: 32 w, 3 d. DONALD by this US: 03/09/2025. Percentile by DONALD: 9.0%. IMPRESSION: 1. Sonographic gestational age 32 weeks 3 days and sonographic due date 03/09/2025. Sonographic age is 7 days behind clinical age. 2. Estimated weight 9th percentile. Abdominal circumference 12th percentile. Femur length 3rd percentile. 3. Spectral Doppler evaluation of the umbilical artery performed. S/D ratio 3.5 considered normal at this gestational age. Fletcher Smith M.D. Diagnostic Radiologist [email or web address] KEE/harry mcdonald/Dictated by: Fletcher Smith MD @ 01/15/2025 2:42:00 PM (Electronically Signed)
== END 2025-01-15 12:21 | disposition home or self-care (01) ==
LOC: US 12:21
PROVIDERS: Visit Provider Advanced Practice Midwife
DX: O99.323 Drug use complicating pregnancy, third trimester (principal); F12.11 Cannabis abuse, in remission; O99.333 Smoking (tobacco) complicating pregnancy, third trimester; Z3A.33 33 weeks gestation of pregnancy
CPT/HCPCS: 76816; 76820

== ENCOUNTER 2025-01-19 12:55 | Outpatient (CLI) | payer OTHER, SELFPAY ==
--- NOTE | 2025-01-19 13:00 | CRLHL7_ITS ---
For Patients: As a result of the Cures Act, medical imaging exams and procedure reports are released immediately into your electronic medical record. You may view this report before your referring provider. If you have questions, please contact your health care provider. OBSTETRICAL ULTRASOUND LIMITED WITH UA DOPPLER INDICATION: IUGR (tobacco/THC use). CLINICAL HISTORY: DONALD by LMP: 03/02/2025 Gestational Age: 34 weeks 0 days COMPARISON: 01/15/2025, 12/18/2024. TECHNIQUE: Real-time smith-scale transabdominal imaging of the fetus was performed, as well as color spectral Doppler analysis of the umbilical vessels. FINDINGS: Fetus: Single Cervix: Not visualized positioning: Vertex Amniotic Fluid: DELTA: 17.8 cm SDP: 8.3 cm Placenta technique: Transabdominal Placenta position: Posterior DOPPLERS: heart rate: 144 bpm Umbilical artery: 2.6 S/D; 28???34 weeks = less than 4.0 IMPRESSION: 1. Normal umbilical artery spectral Doppler evaluation with S/D ratio measuring 2.6. 2. Amniotic fluid single deepest pocket is 8.3 cm, DELTA 17.8 cm. FLETCHER GRANADOS M.D. Diagnostic Radiologist [email or web address] Transcribed: 3:[address]/Dictated by: Fletcher Granados MD @ 01/19/2025 3:14:00 PM (Electronically Signed)
== END 2025-01-19 12:56 | disposition home or self-care (01) ==
LOC: US 12:55
PROVIDERS: Visit Provider Advanced Practice Midwife
DX: O36.5930 Maternal care for other known or suspected poor fetal growth, third trimester, not applicable or unspecified (principal); Z3A.34 34 weeks gestation of pregnancy
CPT/HCPCS: 76815; 76820

== ENCOUNTER 2025-01-26 12:55 | Outpatient (CLI) | payer OTHER, SELFPAY ==
--- NOTE | 2025-01-26 13:00 | CRLHL7_ITS ---
For Patients: As a result of the Cures Act, medical imaging exams and procedure reports are released immediately into your electronic medical record. You may view this report before your referring provider. If you have questions, please contact your health care provider. OB ULTRASOUND LIMITED WITH UA DOPPLER Clinical History: DONALD by LMP: 03/02/2025. GA: 35 w, 0 d. Single. Comparison: US 01/19/2025, 01/15/2025. INDICATION: DELTA/Doppler for IUGR. TECHNIQUE: Real time smith scale imaging of the fetus was performed. Transabdominal imaging performed. Umbilical artery spectral Doppler evaluation performed. CERVIX: Not visualized. POSITIONING: Vertex. AMNIOTIC FLUID: 14.4 cm. DELTA. 6.7 cm SDP (N: greater than 2 x 1 cm) PLACENTA: Technique: Transabdominal. PLACENTA POSITION: Posterior. DOPPLER: heart rate: 144 bpm. Umbilical artery: 2.8 S/D. Greater than 34 w = less than 3.5. IMPRESSION: Spectral Doppler evaluation of the umbilical artery performed. SD ratio 2.8, within normal limits. Fletcher Smith M.D. Diagnostic Radiologist [email or web address] SP/Dictated by: Fletcher Smith MD @ 01/26/2025 3:22:00 PM (Electronically Signed)
== END 2025-01-26 12:56 | disposition home or self-care (01) ==
LOC: US 12:56
PROVIDERS: Visit Provider Advanced Practice Midwife
DX: O36.5930 Maternal care for other known or suspected poor fetal growth, third trimester, not applicable or unspecified (principal)
CPT/HCPCS: 76815; 76820

== ENCOUNTER 2025-02-02 12:11 | Outpatient (CLI) | payer OTHER, SELFPAY ==
--- NOTE | 2025-02-02 12:15 | CRLHL7_ITS ---
For Patients: As a result of the Century Cures Act, medical imaging exams and procedure reports are released immediately into your electronic medical record. You may view this report before your referring provider. If you have questions, please contact your health care provider. OBSTETRICAL ULTRASOUND ??? ANATOMY SURVEY, 02/02/2025 INDICATION: IUGR. LMP: 05/26/2024 DONALD by LMP: 03/02/2025 GESTATIONAL AGE: 36 weeks 0 days. TECHNIQUE: Real-time smith-scale imaging of the fetus was performed transabdominal. COMPARISONS: 01/26/2025, 01/19/2025, 01/15/2025. FINDINGS: Cervix: Not Visualized. Positioning: Vertex. Amniotic Fluid: 21.1 cm DELTA, 7.4 cm SDP (normal greater than 2 x 1 cm) Placenta Technique: Transabdominal. Placenta Position: Posterior. Heart Rate: 160 bpm Umbilical Artery: 2.9 cm, (>34w=<3.5) BIOMETRY BPD: 8.7 cm, 35 weeks 1 day, 31.5 percentile. HC: 31.5 cm, 35 weeks 3 days, 10.5 percentile. AC: 30.4 cm, 34 weeks 2 days, 16.0 percentile. FL: 6.4 cm, 32 weeks 6 days, <3 percentile. FL/AC: 20.9% HC/AC ratio: 1.0. EFW: 2356 grams, 5 pounds 3 ounces. Age by this US: 34 weeks 3 days. DONALD by this US: 03/13/2025. Percentile by DONALD: 10.1% IMPRESSION: 1) Sonographic gestational age 34 weeks 3 days. Sonographic due date 03/13/2025. The sonographic age is 9 days behind the clinical age. 2) Estimated weight 10th percentile. Abdominal circumference 16th percentile. Femur length less than 3rd percentile. 3) Umbilical artery Doppler evaluation performed. SD ratio 2.9, within normal limits. 4) Amniotic fluid DELTA 21.1 cm. FLETCHER GRANADOS M.D. Diagnostic Radiologist [email or web address] DW/Dictated by: Fletcher Granados MD @ 02/06/2025 10:33:00 PM (Electronically Signed)
== END 2025-02-02 12:12 | disposition home or self-care (01) ==
LOC: US 12:11
PROVIDERS: Visit Provider Advanced Practice Midwife
DX: O36.5930 Maternal care for other known or suspected poor fetal growth, third trimester, not applicable or unspecified (principal); Z3A.37 37 weeks gestation of pregnancy
CPT/HCPCS: 76816; 76820

== ENCOUNTER 2025-02-02 14:35 | Outpatient (CLI) | payer OTHER, SELFPAY ==
[2025-02-03 14:54] LABS: Strep B DNA Probe Negative (Negative)
[2025-02-04 08:30] LABS: Strep B Susceptibility Needed? No
== END 2025-02-02 14:36 | disposition home or self-care (01) ==
LOC: NFLDREF 14:35
PROVIDERS: Visit Provider Obstetrics & Gynecology
DX: Z34.93 Encounter for supervision of normal pregnancy, unspecified, third trimester (principal)
CPT/HCPCS: 87081; 87653

== ENCOUNTER 2025-02-08 20:35 | Outpatient (CLI) | payer OTHER, SELFPAY ==
[2025-02-08 20:42] VITALS: PULSE 98; O2SAT 100
[2025-02-08 20:46] VITALS: BP 132/80; PULSE 97
[2025-02-08 20:51] VITALS: RESP 16; TEMP 36.9; BMI 42.1
[2025-02-08 21:12] LABS: Appearance Urine Clear (Clear)
[2025-02-08 21:19] LABS: Cannabinoid Screen Urine POSITIVE (Negative); Methamphetamines Screen Urine Negative (Negative); Tricyclic Antidepressant Urine Negative (Negative)
--- NOTE | 2025-02-08 21:31 | PM.OBLDTN ---
OB - Triage/Final Diagnosis Visit Information Time Seen by Provider: 22:00 Date Seen: 02/08/25 Date of evaluation: 02/08/25 Narrative: The patient is a 19 year old 1 para 0 at 36 weeks 6 days gestation by LMP confirmed by first trimester ultrasound, who presents with left lower quadrant pain. Pain has been going on for 2-3 days consistently. She rates it 7-8/10, stating it as a moderate cramping pain. Today left lower back pain started as well. She has been having mild constipation the past couple days and today had a bowel movement that was painful and difficult to pass. No urinary urgency, pain, or burning. She does endorse increased thirst lately and increased urinary frequency. No vaginal symptoms: abnormal discharge or odor. Baby is moving a lot. No leaking of fluid. No vaginal bleeding. She has not found anything that makes the pain better or worse. Tried different positions which don't seem to make a difference. Has not tried Tylenol or heat pack. Noticing more Joey jackman contractions lately. Here with partner and mother fercho. SAPPHIRE Amato ASSESSMENT:?? 19 year old at 36 weeks 6 days gestation?? complicated by: IUGR now resolved, EFW 10.1%, vaping, daily marijuana use, obesity, anxiety, migraines?? Left lower quadrant pain Category 1 FHR pattern.??? GBS negative? PLAN:?? 1. Suspect pain is related to constipation. Encourage fluids. Try to clean out colon a bit to have easier bowel movements. Start stool softener, colace, 1-2 times per day. Ok to use Miralax in addition if needed. 2. Urine sample collected. Urine analysis is negative. Will wait for culture results. 3. Ok to use Tylenol as directed for pain. 4. Heat pack to area for comfort. 5. Balance activity with rest during these last few weeks of . I,?DEDE Maier, NEW, was present for visit and have reviewed and?agree?with documentation by the Certified Nurse Midwifery?Student.? Evaluation Laboratory results: Laboratory Tests 02/08/25 Range/Units 21:07 Urine Color Yellow (Yellow) Urine Appearance Clear (Clear) Urine pH 7.0 (5.0-8.5) Ur Specific [place] 1.015 (1.000-1.030) Urine Protein Negative (Negative) Urine Glucose (UA) Negative (Negative) Urine Ketones Negative (Negative) Urine Blood Negative (Negative) Urine Nitrite Negative (Negative) Urine Bilirubin Negative (Negative) Urine Urobilinogen 0.2 (0.2-1.0) Ur Leukocyte Esterase Trace A (Negative) Urine RBC 0-2 (0-2) Urine WBC 2-5 (0-5) Ur Squamous Epith Cells Few (None-Few) Urine Bacteria Few A (None) Urine Opiates Screen Pending Ur Oxycodone Screen Pending Urine Methadone Screen Pending Ur Barbiturates Screen Pending U Tricyclic Antidepress Pending Ur Phencyclidine Scrn Pending Ur Amphetamines Screen Pending U Methamphetamines Scrn Pending U Benzodiazepines Scrn Pending Urine Cocaine Screen Pending U Marijuana (THC) Screen Pending Ur Drug Screen Comment See Note Vital signs: Vital Signs - 24 hr 02/08/25 20:42 02/08/25 20:46 02/08/25 20:51 Temperature 98.5 F Pulse Rate 97 Respiratory Rate 16 Blood Pressure 132/80 Pulse Oximetry 100 Comments: Vitals Reviewed Constitutional:? Alert and oriented x3 HEENT:? Normocephalic, atraumatic Lungs:? Clear to auscultation bilaterally Heart:? Regular rate and rhythm, no murmur, rub or gallop Abdomen:? Soft, tender, and gravid. Vertex by Kiko's. No guarding. No rigidness. Back: no CVA tenderness Extremities: No edema or erythema Cervix: 0 cm/ -3 station. Posterior, could not reach completely through inner os NST: 150 bpm/ moderate variability/ present accelerations/ no decelerations/ uterine irritability present Final Diagnosis (1) Left lower quadrant pain: Status: Acute (2) Supervision of high risk in third trimester: Status: Acute
--- NOTE | 2025-02-09 00:55 | PC.OBNST ---
NST Note NST Note Start: 02/08/25 20:38 Freq: ONCE Status: Active Protocol: Document 02/09/25 00:54 BAW (Rec: 02/09/25 00:55 BAW No Response) NST Note 1 Para (# of births) 0 EDC 03/02/25 Gestational Age In 37 Weeks & 0 Days Weeks & Days Patient Presented Contractions/cramping with Complaint(s) of Reactive Yes Appropriate for Yes Gestational Age RN Ankush Terry RNC Date 02/08/25 Reactive Yes Appropriate for Yes Gestational Age GEORGE Richter RN Date 02/08/25 OB NST charge Yes Complete NST Note Yes via Write Note The provider's electronic signature indicates the NST is reactive/appropriate for gestational age. *Note to provider: If an addendum is required, open the patient's chart and click on the note under the Nurse/Allied Health tab.
== END 2025-02-08 22:36 | disposition home or self-care (01) ==
LOC: OB OUT 20:35 → OB 20:35
PROVIDERS: Visit Provider Midwife
DX: O47.1 False labor at or after 37 completed weeks of gestation (principal); Z3A.37 37 weeks gestation of pregnancy
CPT/HCPCS: 59025; 80306; 81001; 81003; 87086; G0463

== ENCOUNTER 2025-02-09 11:08 | Outpatient (CLI) | payer OTHER, SELFPAY ==
--- NOTE | 2025-02-09 11:15 | CRLHL7_ITS ---
For Patients: As a result of the Century Cures Act, medical imaging exams and procedure reports are released immediately into your electronic medical record. You may view this report before your referring provider. If you have questions, please contact your health care provider. OB ULTRASOUND LMP: 05/26/2024. DONALD by LMP: 03/02/2024. GA: 37 w, 0 d. INDICATION: IVGR. TECHNIQUE: Real time smith scale imaging of the fetus was performed. Transabdominal. Single. position: Vertex. Cervix: Not visualized. Placenta/cord: Posterior. Technique: Transabdominal. Amniotic Fluid: 17.8 cm DELTA. 5.3 cm SDP (greater than/equal to: 2- less than 8 cm). heart rate: 135 bpm. >34W=<3.5 Umbilical Artery: 1.9 s/d IMPRESSION: 1. Amniotic fluid single deepest pocket 5.0 cm. DELTA 17.8 cm. 2. Umbilical artery Doppler evaluation performed. SD ratio 1.9, within normal limits. Fletcher Smith M.D. Diagnostic Radiologist [email or web address] KEE/nickie JR/Dictated by: Fletcher Smith MD @ 02/09/2025 12:17:00 PM (Electronically Signed)
== END 2025-02-09 11:09 | disposition home or self-care (01) ==
LOC: US 11:09
PROVIDERS: Visit Provider Advanced Practice Midwife
DX: O36.5930 Maternal care for other known or suspected poor fetal growth, third trimester, not applicable or unspecified (principal); Z3A.37 37 weeks gestation of pregnancy
CPT/HCPCS: 76815; 76820